=== PATIENT | female | born 1990 | race Caucasian/White ===

== ENCOUNTER → 2023-04-03 | Outpatient (CLI) | payer OTHER, SELFPAY ==
[2023-04-03 10:32] LABS: Absolute Lymphocyte Count 2.08 X10^3/uL (0.83-4.51); Absolute Neutrophil Count 4.6 X10^3/uL (2.0-7.7); Basophil# 0.03 X10^3/uL; Basophil% 0.4 % (0-1); Eosinophils% 1.4 % (0-5); Hematocrit 45.5 % (37-47); Hemoglobin 14.4 g/dL (12.0-15.0); Lymphocyte # 2.08 X10^3/ul (0.83-4.51); Lymphocyte % 28.3 % (19-41); Mean Corp Hgb Conc 31.6 g/dL (32-36); Mean Corpuscular Hgb 28.7 pg (27.0-32.0); Mean Corpuscular Volume 90.8 fL (81-99); Monocyte# 0.52 X10^3/uL; Monocyte% 7.1 % (0-10); NRBC Flagged by Analyzer 0 % (0-5); Neutrophil % 62.5 % (47-70); Platelet Count 281 K/mm3 (150-450); RBC Distribution Width CV 13.1 % (11.6-14.6); RBC Distribution Width SD 43.7 fl (35.1-43.9); Red Blood Count 5.01 M/mm3 (4.2-5.4); White Blood Count 7.4 K/mm3 (4.4-11.0)
[2023-04-03 10:58] LABS: ALB/GLOB Ratio 1.1 RATIO (0.9-2.4); AST(SGOT) 20 U/L (15-37); Alanine Aminotransfer ALT/SGPT 22 U/L (13-56); Albumin, Serum 3.9 g/dL (3.2-5.0); Alkaline Phosphatase 71 U/L (45-117); Anion Gap 6 (5-15); BUN 12 mg/dL (7-18); BUN/Creat Ratio 17.3 RATIO (10-20); Calcium,Total 8.8 mg/dL (8.5-10.1); Chloride 110 mmol/L (98-107); Cholesterol 197 mg/dL (200); Creatinine, Serum 0.69 mg/dL (0.55-1.02); EST Glomerular Filtration Rate 104 mL/min (>60); Est Glom Filt Rate - Afr Amer 126 mL/min (>60); Globulin 3.4 g/dL (2.2-4.2); Glucose 92 mg/dL (74-106); High Density Lipoprotein 64 mg/dL; Potassium 3.7 mmol/L (3.5-5.1); Protein, Total 7.3 g/dL (6.4-8.2); Sodium Level 141 mmol/L (136-145); Triglycerides 63 mg/dL; Very Low Density Lipoprotein 13 mg/dL (5-40)
== END | disposition home or self-care (01) ==
LOC: MTLAB 07:34
PROVIDERS: PCP Family Medicine; Referring Provider Physician Assistant Medical; Visit Provider Physician Assistant Medical
DX: L70.0 Acne vulgaris (principal); Z79.899 Other long term (current) drug therapy
CPT/HCPCS: 36415; 80053; 80061; 85025

== ENCOUNTER 2024-01-03 23:14 | Observation (INO) | payer OTHER, SELFPAY ==
[2024-01-03 23:16] VITALS: BP 153/104; PULSE 131; RESP 17; TEMP 36.2; O2SAT 99; BMI 28.3
[2024-01-03 23:25] VITALS: BP 134/85; PULSE 98; RESP 12; TEMP 36.7; O2SAT 100
[2024-01-03 23:46] LABS: Bacteria 0 SEEN /hpf (None Seen); Mucous, Urine 0 SEEN /hpf (<or=2+); Red Blood Cells-Urine 0 SEEN /hpf (0-5); Squamous Epithelial Cells - UA 0 SEEN /hpf (5-10); White Blood Cells 0 SEEN /hpf (0-5)
[2024-01-03 23:51] LABS: Color, Urine Yellow (Yellow); Glucose, Dipstick Normal (Normal); Ketone-Dipstick Negative (Negative); Leukocyte Esterase-Dipstick Negative /ul (Negative); Nitrite-Dipstick Negative (Negative); Occult Blood-Urine Negative /ul (Negative); Protein-Dipstick Negative (Negative); Urine Bilirubin Dipstick Negative (Negative); Urine Clarity Clear (Clear); Urine Urobilinogen Normal (Normal)
--- OUTSIDE RECORDS SUMMARY | 2024-01-03 23:53 | XMS RPT_ITS | CCD ---
Author Name Unknown Address [address] [place] [address] Organization [facility] Care Team Providers Care Cook Chili Name Role Phone Elisha Ballard Primary Care Provider [phone] ELISHA BALLARD Primary Care Unavailable ABDIRIZAK HAN Attending Elisha Bennett Primary Care Provider Carla Carter Primary Care Provider [phone] Elisha Ballard Unavailable JANE SEGOVIA Attending UnavailCARLA Wang Primary Care Unavailable Salma Guthrie Primary Care Provider No, Physician Primary Care Provider UnavailElisha Christie CNP Primary Care Provider [phone] KATYA EDWARDS Admitting WILLIE García Attending Unavailable ELISHA BALLARD Primary Care Unavailable KATYA EDWARDS Attending Joyce garcia [facility] onsulting Unavailable WILLIE NASH Admitting Unavailable ELISHA BALLARD Primary Care Unavailable KATYA EDWARDS Attending KATYA Pendleton Referring SALMA Jacobs Primary Care Unavailable ELIU DIAZ Admitting Unavailable LAMIN FREEDMAN Attending Unavailable LAMIN FREEDMAN Primary Care Unavailable Edu Olivares MD Unavailable [phone] Lamin Freedman MD Primary Care Provider LAMIN FREEDMAN Primary Care Unavailable JUAN DANIEL BURROWS Primary Care Unavailable MARGARET JOHN Admitting Unavail JUAN DANIEL Davidson Primary Care Unavailable MARGARET JOHN Attending Unavail able Allergies Allergy Classification Reported Allergen(s) Allergy Type Date of Onset Reaction(s) Facility (15 sources) Penicillins; Translations: [Unknown] Propensity to adverse reactions to drug 08-30-2016 [facility] (3 sources) Penicillins Propensity to adverse reactions to drug 08-30-2016 [facility] Medications Current Medications Medication Drug Class(es) Dates Sig (Normalized) Sig (Original) acetaminophen 325 mg oral tablet (3 sources) Start: 08-15-2021 End: 08-25-2021 take 2 tablets by mouth every four hours as needed acetaminophen (TYLENOL) 325 MG tablet Take 2 (two) tablets (650 mg total) by mouth every 4 (four) hours as needed . 30 tablet 0 08/15/2021 08/25/2021 Active Completed/Discontinued Medications Medication Drug Class(es) Dates Sig (Normalized) Sig (Original) aluminum hydroxide 40 mg/ml / magnesium hydroxide 40 mg/ml / simethicone 4 mg/ml oral suspension (1 source) Start: 08-13-2021 End: 08-15-2021 take 30 mL by mouth every four hours as needed 30 mL, Oral, Every 4 hours PRN, indigestion, Starting on 08/13/21 at 0432, azithromycin (ZITHROMAX) 500 mg in sodium chloride (NS) 0.9% 250 mL (vialmate) (1 source) Start: 08-13-2021 End: 08-13-2021 azithromycin (ZITHROMAX) 500 mg in sodium chloride (NS) 0.9% 250 mL (vialmate) bisacodyl 10 mg rectal suppository (1 source) Stimulant Laxative Start: 08-13-2021 End: 08-15-2021 10 mg, Rectal, Daily PRN, constipation, Starting on 08/13/21 at 0432, Use oral medication first for constipation.&nbsp ; Use rectal suppository, if ordered, for constipation if oral route not tolerated. calcium chloride 0.0014 meq/ml / potassium chloride 0.004 meq/ml / sodium chloride 0.103 meq/ml / sodium lactate 0.028 meq/ml injectable solution (3 sources) Start: 08-13-2021 End: 08-15-2021 take 125 mL intravenously every hour 125 mL/hr, Intravenous, Continuous, Starting on 08/13/21 at 0530, L&D Post-Delivery Start when oxyTOCIN (PITOCIN) drip is discontinued. Discontinue after 24 hours if patient is afebrile and tolerating orals. Problems Active Problems Problem Classification Problem Date Documented Da te Episodic/Chronic Gastrointestinal hemorrhage (4 sources) Rectal hemorrhage; Translations: [Hemorrhage of anus and rectum] Onset: 04-22-2022 Episodic Immunizations and screening for infectious disease (1 source) Contact with and (suspected) exposure to other viral communicable diseases; Translations: [Contact with and (suspected) exposure to other viral communicable diseases] Episodic Other gastrointestinal disorders (14 sources) Irritable bowel syndrome with diarrhea; Translations: [Irritable bowel syndrome with diarrhea] Onset: 07-07-2019 07-07-2019 Chronic Other nervous system disorders (1 source) Loss of sense of smell; 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] Episodic Other screening for suspected conditions (not mental disorders or infectious disease) (2 sources) Patient encounter status; Translations: [Encounter for screening for cardiovascular disorders] Episodic Residual codes; unclassified (1 source) Immunization due; Translations: [Immunization due] Unclassified (14 sources) Patient encounter status; Translations: [Preventative health care] Onset: 12-23-2018 Resolved: 01-16-2021 12-23-2018 Past or Other Problems Problem Classification Problem Date Documented Da te Episodic/Chronic Open wounds of extremities (1 source) Needle stick injury of finger; Translations: [Needlestick injury of finger, initial encounter] Episodic Other gastrointestinal disorders (15 sources) Diarrhea; Translations: [Diarrhea, unspecified] Onset: 12-23-2018 Resolved: 01-16-2021 12-23-2018 Episodic Polyhydramnios and other problems of amniotic cavity (4 sources) Amniotic fluid leaking; Translations: [Premature rupture of membranes, unspecified as to length of time between rupture and onset of labor, unspecified weeks of gestation] Onset: 08-12-2021 Episodic Results Test Name Value Interpretation Reference Range Facil ity Vital Signs Date Time Vital Sign Value Performing Clinician Nadeen bethea 04-18-2022 08:45-0400 Body height 160 cm Lamin Freedman MD Work Phone: [facility] 04-18-2022 08:45-0400 Body mass index (BMI) [Ratio] 26.57 kg/m2 Lamin Freedman MD Work Phone: [facility] 04-18-2022 08:45-0400 Body temperature 98.4 [degF] Lamin Freedman MD Work Phone: [facility] 04-18-2022 08:45-0400 Body weight 68.04 kg Lamin Freedman MD Work Phone: [facility] 04-18-2022 08:45-0400 Diastolic blood pressure 85 mm[Hg] Lamin Freedman MD Work Phone: [facility] 04-18-2022 08:45-0400 Heart rate 83 /min Lamin Freedman MD Work Phone: [facility] 04-18-2022 08:45-0400 SaO2% (BldA) [Mass fraction] 98 % Lamin Freedman MD Work Phone: [facility] 04-18-2022 08:45-0400 Systolic blood pressure 130 mm[Hg] Lamin Freedman MD Work Phone: [facility] 08-15-2021 08:00-0400 Body temperature 98.1 [degF] Katya Edwards MD Work Phone: [facility] 08-15-2021 08:00-0400 Diastolic blood pressure 85 mm[Hg] Katya Edwards MD Work Phone: [facility] 08-15-2021 08:00-0400 Heart rate 101 /min Katya Edwards MD Work Phone: [facility] 08-15-2021 08:00-0400 Respiratory rate 16 /min Katya Edwards MD Work Phone: [facility] 08-15-2021 08:00-0400 SaO2% (BldA) [Mass fraction] 97 % Katya Edwards MD Work Phone: [facility] 08-15-2021 08:00-0400 Systolic blood pressure 135 mm[Hg] Katya Yost Work Phone: [facility] 08-12-2021 08:04-0400 Body height 160 cm Katya Edwards MD Work Phone: [facility] 08-12-2021 08:04-0400 Body mass index (BMI) [Ratio] 33.13 kg/m2 Katya Edwards MD Work Phone: [facility] 08-12-2021 08:04-0400 Body weight 84.82 kg Katya Edwards MD Work Phone: [facility] 01-16-2021 08:14-0500 BMI (Body Mass Index) 28.34 kg/m2 [facility] 08:14-0500 Body Temperature 97 [degF] [facility] 01-16-2021 08:14-0500 Body weight 72.58 kg [facility] 01-16-2021 08:14-0500 BP Diastolic 79 mm[Hg] [facility] 01-16-2021 08:14-0500 BP Systolic 124 mm[Hg] [facility] 01-16-2021 08:14-0500 Height 160 cm [facility] 01-16-2021 08:14-0500 Pulse (Heart Rate) 90 /min [facility] 01-16-2021 08:14-0500 Pulse Oximetry 99 % [facility] 10-24-2020 17:48-0500 BMI (Body Mass Index) 25.69 kg/m2 [facility] 17:48-0500 Body Temperature 98.1 [degF] [facility] 17:48-0500 [facility] 17:48-0500 Height 160 [facility] 17:48-0500 Pulse (Heart Rate) 92 /min Jane Segovia [facility] 10-24-2020 17:48-0500 Pulse Oximetry 99 % Jane Segovia [facility] 11-24-2019 11:17-0500 BMI (Body Mass Index) 29.14 kg/m2 [facility] 11-24-2019 11:17-0500 Body weight 72.26 kg [facility] 11-24-2019 11:17-0500 BP Diastolic 83 mm[Hg] [facility] 11-24-2019 11:17-0500 BP Systolic 130 mm[Hg] [facility] 11-24-2019 11:17-0500 Pulse (Heart Rate) 87 /min [facility] 07-11-2019 18:21-0400 Body Temperature 98.4 [degF] [facility] 07-11-2019 18:21-0400 BP Diastolic 90 mm[Hg] [facility] 07-11-2019 18:21-0400 BP Systolic 131 mm[Hg] [facility] 07-11-2019 18:21-0400 Pulse (Heart Rate) 79 /min [facility] 07-11-2019 18:21-0400 Pulse Oximetry 97 % [facility] 07-11-2019 18:21-0400 Respiratory Rate 16 /min [facility] 07-07-2019 09:15-0400 BMI (Body Mass Index) 28.28 kg/m2 [facility] 07-07-2019 09:15-0400 Body weight 70.13 kg [facility] 07-07-2019 09:15-0400 BP Diastolic 85 mm[Hg] [facility] 07-07-2019 09:15-0400 BP Systolic 128 mm[Hg] [facility] 07-07-2019 09:15-0400 Pulse (Heart Rate) 83 /min [facility] 12-23-2018 13:16-0500 BMI (Body Mass Index) 28.29 kg/m2 Elisha Ballard [facility] 12-23-2018 13:16-0500 Body Temperature 97.59 [degF] Elisha Ballard [facility] 12-23-2018 13:16-0500 BP Diastolic 89 mm[Hg] Elisha Ballard [facility] 12-23-2018 13:16-0500 BP Systolic 134 mm[Hg] Elisha Ballard [facility] 12-23-2018 13:16-0500 Height 157.5 cm Elisha Ballard [facility] 12-23-2018 13:16-0500 Pulse (Heart Rate) 95 /min Elisha Ballard [facility] 12-23-2018 13:16-0500 Pulse Oximetry 99 % Elishabalbir Ballard [facility] 12-23-2018 13:16-0500 Weight 70.15 kg Elisha Elio [facility] Encounters Encounter Date Encounter Type Care Provider Facility Start: 07-25-2022 End: 07-25-2022 [facility] Start: 07-25-2022 End: 07-29-2022 [facility] Start: 04-22-2022 Patient encounter status Lamin Freedman MD Work Phone: [facility] Work Phone: Start: 04-18-2022 End: 04-22-2022 ambulatory LAMIN J [facility] Start: 04-18-2022 End: 04-22-2022 ambulatory LAMIN J VENKATMateo [facility] Start: 04-18-2022 End: 04-18-2022 Patient encounter status Lamin Freedman MD Work Phone: [facility] Start: 04-18-2022 End: 04-18-2022 Periodic preventive med est patient 18-39 yrs Lamin Freedman MD Work Phone: [facility] Procedures Date Procedure Procedure Detail Performing Clinician Start: 04-18-2022 Adult depression screening assessment Lamin Freedman MD Work Phone: Start: 08-14-2021 Blood count complete automated Willie Nash MD Work Phone: Start: 08-12-2021 Blood typing serologic abo Willie Nash MD Work Phone: Start: 08-12-2021 Comprehensive metabolic panel Antionette Meza CNM Work Phone: Start: 10-24-2020 COVID-19, MOLECULAR Jane Fernández Jose Work Phone: Start: 05-01-2019 Microscopic observation [Identifier] in Cervix by Cyto stain Carla Mercer Start: 03-13-2016 Microscopic observation [Identifier] in Cervix by Cyto stain Elisha Ballard section Willie figueroa MD Work Phone: H/O: section H/O: secti on Katya Tyson Edwards MD Work Phone: Plan of Treatment Date Care Activity Detail Author Start: 12-23-2028 Tetanus vaccination [facility] Start: 04-18-2023 Depression screening using PHQ-9 (Patient Health Questionnaire 9) score Depression Screening (PHQ-2/9) [facility] Start: 04-18-2023 History and physical examination, annual for health maintenance Wellness Visit [facility] Start: 05-01-2022 Screening for malignant neoplasm of cervix PAP SMEAR [facility] Start: 01-16-2022 History and physical examination, annual for health maintenance Wellness Visit [facility] Start: 01-17-2021 End: 01-17-2021 Office Visit 01/17/2021 Office Visit Primary Care Elisha Ballard, [employer] [address] [place] [address] [phone] [facility] Start: 12-15-2020 End: 12-15-2020 Immunization 12/15/2020 Immunization Primary Care Margaret John MD [address] [place] [address] [phone] [facility] [facility] Start: 12-14-2020 COVID-19 Vaccine (2 of 2 - Moderna series) COVID-19 Vaccine (2 of 2 - Moderna series) [facility] Start: 12-14-2020 COVID-19 Vaccine (Moderna) (#2) COVID-19 Vaccine (Moderna) (#2) [facility] Start: 12-23-2019 History and physical examination, annual for health maintenance Wellness Visit [facility] Start: 10-06-2019 End: 10-06-2019 Office Visit 10/06/2019 Office Visit Gastroenterology Ruslan Carlasaundra Escobedo DO [address] [place] [address] [phone] [facility] Start: 07-19-2019 Influenza vaccination given SEQUENTIAL INFLUENZA VACCINE (#1) [facility] Start: 03-13-2019 Screening for malignant neoplasm of cervix PAP SMEAR [facility] Start: 07-19-2018 Influenza vaccination given SEQUENTIAL INFLUENZA VACCINE (#1) [facility] Start: 2003 Adolescent depression screening assessment Depression Screening (PHQ9) [facility] Start: 1991 Depression screening using PHQ-9 (Patient Health Questionnaire 9) score DEPRESSION SCREENING (PHQ9) [facility] Covid-19/Influenza Order Algorithm Covid-19/Influenza Order Algorithm Microbiology Routine Anosmia Contact With And (Suspected) Exposure To Other Viral Communicable Diseases Ordered: 10/24/2020 [facility] Immunizations Immunization Date Immunization Notes Care Provider Fa cility 09-18-2021 influenza virus vacc ine, unspecified formulation Lamin Freedman MD Work Phone: [facility] 09-18-2021 influenza, injectabl e, quadrivalent, preservative free Lamin Freedman MD Work Phone: [facility] 08-13-2021 varicella zoster imm une globulin Katya Edwards MD Work Phone: [facility] 08-13-2021 measles, mumps and r ubella virus vaccine Katya Edwards MD Work Phone: [facility] 08-13-2021 diphtheria, tetanus toxoids and acellular pertussis vaccine, unspecified formulation Katya Edwards MD Work Phone: [facility] 02-22-2021 Moderna SARS-CoV-2 Vaccination Rico Oes Pcp Amadou [facility] 11-16-2020 Moderna SARS-CoV-2 Vaccination Rosa Baig [facility] 09-20-2020 influenza virus vacc ine, unspecified formulation Salma Oberschmidt [facility] 12-22-2019 hepatitis A vaccine, adult dosage Masarah Bernardo [facility] 12-22-2019 hepatitis A [facility], [facility] 08-21-2019 influenza virus vacc ine, unspecified formulation [facility] 12-23-2018 diphtheria, tetanus toxoids and acellular pertussis vaccine, unspecified formulation Elisha [facility] 12-23-2018 tetanus toxoid, redu ramos diphtheria toxoid, and acellular pertussis vaccine, adsorbed [facility] 07-03-2016 tuberculin skin test ; purified protein derivative solution, intradermal [facility] 09-17-2015 hepatitis B vaccine, adult dosage [facility] 07-14-2015 hepatitis B vaccine, adult dosage [facility] 11-26-2014 hepatitis B vaccine, adult dosage [facility] 09-01-2014 influenza, injectabl e, quadrivalent, preservative free [facility] 03-07-2012 hepatitis A vaccine, adult dosage [facility] 03-07-2012 poliovirus vaccine, inactivated [facility] 03-07-2012 typhoid capsular polysaccharide vaccine [facility] 03-07-2012 yellow fever vaccine [facility] 02-07-2010 hepatitis B vaccine, pediatric or pediatric/adolescent dosage [facility] 10-26-2009 hepatitis B vaccine, pediatric or pediatric/adolescent dosage [facility] 07-19-2009 hepatitis B vaccine, pediatric or pediatric/adolescent dosage [facility] 07-19-2009 meningococcal polysaccharide (groups A, C, Y and W-135) diphtheria toxoid conjugate vaccine (MCV4P) [facility] 07-19-2009 tetanus toxoid, redu ramos diphtheria toxoid, and acellular pertussis vaccine, adsorbed [facility] 02-23-1998 measles, mumps and r ubella virus vaccine [facility] 09-04-1995 diphtheria, tetanus toxoids and pertussis vaccine [facility] 09-04-1995 poliovirus vaccine, unspecified formulation [facility] 08-12-1992 diphtheria, tetanus toxoids and pertussis vaccine [facility] 04-25-1992 haemophilus influenz ae type b vaccine, conjugate unspecified formulation [facility] 04-25-1992 measles, mumps and r ubella virus vaccine [facility] 1991 diphtheria, tetanus toxoids and pertussis vaccine [facility] 1991 haemophilus influenz ae type b vaccine, conjugate unspecified formulation [facility] 1991 poliovirus vaccine, unspecified formulation [facility] 1991 diphtheria, tetanus toxoids and pertussis vaccine [facility] 1991 haemophilus influenz ae type b vaccine, conjugate unspecified formulation [facility] 1991 poliovirus vaccine, unspecified formulation [facility] 1991 diphtheria, tetanus toxoids and pertussis vaccine [facility] 1991 haemophilus influenz ae type b vaccine, conjugate unspecified formulation [facility] 1991 poliovirus vaccine, unspecified formulation [facility] Payers Date Payer Category Payer Worker's Compensation [id number] 2017 Unknown [employer]/PREF/O/PPO xxxxxxxxxxxx 2017-Present xxxxxxxxxxxx [id number] 2017 Unknown [id number] 2017 Unknown [id number] 2017 Unknown [employer]MINA BERMAN/PREF/HMO/PPO [id number] 2017-Present [phone] [address] [place] [address] [id number] 1991 Unknown [id number] 1991 Unknown [id number] 1991 Unknown [id number] 1991 Unknown [id number] 902 1991 Unknown [id number] 902 1991 Unknown [id number] 903 1991 Unknown [id number] 900 1991 Unknown [id number] Worker's Compensation WORKER'S C [employer] PENDING WORKERS COMPENSATION xxxxxxxxx Effective for all dates xxxxxxxxx [id number] Social History Date Type Detail Facility Start: 12-23-2018 End: 07-07-2019 Tobacco smoking status WYIS Never smoker [facility] Start: 1991 Sex Assigned At Not on file [facility] Start: 07-11-2019 End: 01-16-2021 Alcohol intake Current drinker of alcohol (finding) [facility] Start: 07-07-2019 End: 10-24-2020 Tobacco use and exposure Never used [facility] Exposure to SARS-CoV -2 (event) Yes [facility] Start: 01-16-2021 End: 04-18-2022 [facility] Start: 01-16-2021 End: 04-18-2022 History SDOH Food Worry 1 [facility] Start: 01-16-2021 End: 04-18-2022 History SDOH Transport Med 2 [facility] Start: 04-02-2022 End: 04-12-2022 Exposure to SARS-CoV-2 (event) Not sure [facility] Start: 08-14-2021 End: 04-22-2022 Alcohol intake Ex-drinker (finding) [facility] Start: 08-14-2021 End: 04-22-2022 Alcohol intake [facility] Clinical Notes 08-13-2021 to 04-22-2022 Assessment & Plan Note - Lamin Freedman MD - 04/22/2022 2:04 PM EDTAssessment & Plan Note - Lamin Freedman MD - 04/22/2022 2:04 PM EDTRedarrell Barton MD - 04/18/2022 9:25 AM EDT Note Date & Type Note Facility 04-22-2022 Evaluation + Plan note Associ ated Problem(s): Encounter for well adult exam with abnormal findings Labs as ordered No current anxiety or depression (PHQ9: 0) No substance abuse concerns. Pap Smear: UTD, due May 2022 with OBGYN STI: mcc monogamous relationship with 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 Vaccines: UTD Continued work on healthy diet and consistent aerobic exercise (minimum 150 minutes weekly) were suggested and discussed - already doing well. [facility] 04-22-2022 Miscellaneous Notes Associate d Problem(s): Encounter for well adult exam with abnormal findings Labs as ordered No current anxiety or depression (PHQ9: 0) No substance abuse concerns. 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 Vaccines: UTD Continued work on healthy diet and consistent aerobic exercise (minimum 150 minutes weekly) were suggested and discussed - already doing well. Associated Problem(s): Rectal bleeding Intermittent, every couple weeks Likely hemorrhoids in setting of recent and IBS-D Offered exam, pt respectfully declined Discussed limiting time spent on toilet, avoidance of straining, topical OTC options She would like new referral to GI as hers has left - placed order in separate encounter documented in this encounter [facility] 04-22-2022 Miscellaneous Notes Associate d Problem(s): Encounter for well adult exam with abnormal findings Labs as ordered No current anxiety or depression (PHQ9: 0) No substance abuse concerns. 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 Vaccines: UTD Continued work on healthy diet and consistent aerobic exercise (minimum 150 minutes weekly) were suggested and discussed - already doing well. Associated Problem(s): Rectal bleeding Intermittent, every couple weeks Likely hemorrhoids in setting of recent and IBS-D Offered exam, pt respectfully declined Discussed limiting time spent on toilet, avoidance of straining, topical OTC options She would like new referral to GI as hers has left - placed order in separate encounter documented in this encounter [facility] 04-22-2022 Evaluation + Plan note Associ ated Problem(s): Rectal bleeding Intermittent, every couple weeks Likely hemorrhoids in setting of recent and IBS-D Offered exam, pt respectfully declined Discussed limiting time spent on toilet, avoidance of straining, topical OTC options She would like new referral to GI as hers has left - placed order in separate encounter [facility] 04-18-2022 History of Presen t illness Narrative (GE) I have reviewed the history, physical, diagnosis and care plan with the resident physician, Lamin Freedman MD. I confirm the assessment and treatment plan: Diagnoses and all orders for this visit: Encounter for well adult exam without abnormal findings- Encouraged continued dietary changes and exercise Rectal bleeding- Likely external hemorrhoids. - CBC and Differential; Future HM - Comprehensive Metabolic Panel; Future - Lipid Panel; Future Edith Barton MD Jay Torres is a 32 y.o. year old female with a hx of IBS-D who presents for full history and physical. ASSESSMENT / PLAN: Problem List Items Addressed This Visit Digestive Rectal bleeding Intermittent, every couple weeks Likely hemorrhoids in setting of recent and IBS-D Offered exam, pt respectfully declined Discussed limiting time spent on toilet, avoidance of straining, topical OTC options She would like new referral to GI as hers has left - placed order in separate encounter Other Encounter for well adult exam with abnormal findings - Primary Labs as ordered No current anxiety or depression (PHQ9: 0) No substance abuse concerns. 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 Vaccines: UTD Continued work on healthy diet and consistent aerobic exercise (minimum 150 minutes weekly) were suggested and discussed - already doing well. Relevant Orders CBC and Differential (Completed) Comprehensive Metabolic Panel (Completed) Lipid Panel (Completed) The patient will call with questions, concerns and for changing symptoms. For any new medications prescribed today, patient was educated about indications for the medication, how to take the medication and potential side effects of the medications. Patient Name: Jay Torres Date: 04/22/22 Patient : 1990 Patient Age: 32 y.o. CC: Chief Complaint Patient presents with Annual Exam Had daughter 8 months ago had rectal bleeding right after and went away but is now back on occasion SUBJECTIVE C section 8 mo ago, healed well. Breast feeding, on . IBS well controlled with diet Rectal bleeding - after . Hx hemorrhoids during - thinks they resolved. Has not seen her GI dr for this concern, only saw them for her IBS. Rectal pain immediately after delivery but not since. Some streaks of blood on TP every couple weeks. Diet Typical Foods: eggs, avocado toast, seafood, chicken, veg, some red meats, dessert couple times a week. Drinks: water, no pop Caffeine: 1-2 cups of coffee per day Substances Alcohol: no Tobacco products: no Marijuana: no Other: no Exercise Activities: walks daily, yoga at home, sometimes bikes OB Regular periods: not since delivery - has IUD LMP: prior to G/Ps: Sexually Active: yes What are the genders of people you have sex with: male Number partners in past year: 1, STI Screening: defers Plans for : not soon, but someday Contraception: Mirena IUD placed Sep 2021 Last pap was about 5 yrs ago May and was normal - due with OBGYN this May DV: safe Vaccinations: Tdap: UTD COVID-19: UTD Health maintenance: Blood pressure: wnl HLD screening: will check today Has an eye doctor: has seen before Has a dentist: yes Today's PHQ9 PHQ-9 Total Score: 0 If you checked off any problems, how difficult have these problems made it for you to do your work, take care of things at home, or get along with other people?: Not difficult at all Review of Systems Constitutional: Negative for fever. HENT: Negative for congestion and rhinorrhea. Respiratory: Negative for shortness of breath. Cardiovascular: Negative for chest pain. Gastrointestinal: Positive for anal bleeding. Negative for abdominal pain and rectal pain. Endocrine: Negative for cold intolerance and heat intolerance. Psychiatric/Behavioral: Negative for dysphoric mood. History reviewed. No pertinent past medical history. Past Surgical History: Procedure Laterality Date SECTION N/A 08/12/2021 Procedure: SECTION; Surgeon: Willie Nash Jr., MD; Location: [facility] OR; Service: OBGYN WISDOM TOOTH EXTRACTION Allergies: Penicillins Current Outpatient Medications Medication Sig Dispense Refill vitamin with Ca-Iron-FA 27-1 mg Tab Take 1 tablet by mouth daily . No current facility-administered medications for this visit. 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 Tobacco Use Smoking status: Never Smokeless tobacco: Never Vaping Use Vaping Use: Never used Substance and Sexual Activity Alcohol use: Not Currently Alcohol/week: 2.0 standard drinks Types: 2 Glasses of wine per week Drug use: Never Sexual activity: Yes Partners: Male Social Determinants of Health Financial Resource Strain: Low Risk Difficulty of Paying Living Expenses: Not hard at all Food Insecurity: No Food Insecurity Worried About Running Out of Food in the Last Year: Never true Ran Out of Food in the Last Year: Never true Transportation Needs: No Transportation Needs Lack of Transportation (Medical): No Lack of Transportation (Non-Medical): No Family History Problem Relation Age of Onset Non-Hodgkin's Lymphoma Father 56 No Known Problems Mother OBJECTIVE Vitals: 04/18/22 0845 BP: 130/85 BP Location: Left arm Patient Position: Sitting BP Cuff Size: Adult Pulse: 83 Temp: 98.4 F (36.9 C) TempSrc: Infrared SpO2: 98% Weight: 68 kg (150 lb) Height: 5' 3 Wt Readings from Last 3 Encounters: 04/18/22 68 kg (150 lb) 08/12/21 84.8 kg (187 lb) 08/11/21 84.4 kg (186 lb) Ht Readings from Last 3 Encounters: 04/18/22 5' 3 08/12/21 5' 3 08/11/21 5' 3 Body mass index is 26.57 kg/m . Physical Exam General: Alert, cooperative, well appearing, in no apparent distress. Head: Head is symmetric, normocephalic without evidence of trauma or deformity. Eyes: Pupils are equally round and reactive to light with accommodation. The extra-ocular movements are intact. The conjunctiva is clear and noninjected. ENT: The external auditory canals are without swelling or drainage.The nasal mucosa is pink without drainage. The tongue and mucous membranes are pink and moist without lesions. The dentition is generally in good health. The pharynx is non-erythematous without exudates. Neck: There is normal range of motion. The thyroid is normal size without nodules or masses. There is no lymphadenopathy. CV: The heart sounds are regular in rate and rhythm. There is a normal S1 and S2. Lungs: Inspiratory and expiratory efforts are full and unlabored. Lung sounds are clear and equal to auscultation throughout all lung marte without wheezing, rales, or rhonchi. GI: The abdomen is soft and nontender. Bowel sounds are present in all 4 quadrants. There is no hepatosplenomegaly or other masses. There is no rebound or guarding. Extremities: There is no clubbing, cyanosis, or edema. Neurological: Patient is alert. There are no obvious focal sensory or motor deficits. Cranial nerves appear intact. Hearing and vision is grossly normal. Skin: Warm, dry, no rashes or discoloration. documented in this encounter [facility] 04-18-2022 History of Presen t illness Narrative (GE) I have reviewed the history, physical, diagnosis and care plan with the resident physician, Lamin Freedman MD. I confirm the assessment and treatment plan: Diagnoses and all orders for this visit: Encounter for well adult exam without abnormal findings- Encouraged continued dietary changes and exercise Rectal bleeding- Likely external hemorrhoids. - CBC and Differential; Future HM - Comprehensive Metabolic Panel; Future - Lipid Panel; Future Edith Barton MD Jay Torres is a 32 y.o. year old female with a hx of IBS-D who presents for full history and physical. ASSESSMENT / PLAN: Problem List Items Addressed This Visit Digestive Rectal bleeding Intermittent, every couple weeks Likely hemorrhoids in setting of recent and IBS-D Offered exam, pt respectfully declined Discussed limiting time spent on toilet, avoidance of straining, topical OTC options She would like new referral to GI as hers has left - placed order in separate encounter Other Encounter for well adult exam with abnormal findings - Primary Labs as ordered No current anxiety or depression (PHQ9: 0) No substance abuse concerns. 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 Vaccines: UTD Continued work on healthy diet and consistent aerobic exercise (minimum 150 minutes weekly) were suggested and discussed - already doing well. Relevant Orders CBC and Differential (Completed) Comprehensive Metabolic Panel (Completed) Lipid Panel (Completed) The patient will call with questions, concerns and for changing symptoms. For any new medications prescribed today, patient was educated about indications for the medication, how to take the medication and potential side effects of the medications. Patient Name: Jay Torres Date: 04/22/22 Patient : 1990 Patient Age: 32 y.o. CC: Chief Complaint Patient presents with Annual Exam Had daughter 8 months ago had rectal bleeding right after and went away but is now back on occasion SUBJECTIVE C section 8 mo ago, healed well. Breast feeding, on . IBS well controlled with diet Rectal bleeding - after . Hx hemorrhoids during - thinks they resolved. Has not seen her GI dr for this concern, only saw them for her IBS. Rectal pain immediately after delivery but not since. Some streaks of blood on TP every couple weeks. Diet Typical Foods: eggs, avocado toast, seafood, chicken, veg, some red meats, dessert couple times a week. Drinks: water, no pop Caffeine: 1-2 cups of coffee per day Substances Alcohol: no Tobacco products: no Marijuana: no Other: no Exercise Activities: walks daily, yoga at home, sometimes bikes OB Regular periods: not since delivery - has IUD LMP: prior to G/Ps: Sexually Active: yes What are the genders of people you have sex with: male Number partners in past year: 1, STI Screening: defers Plans for : not soon, but someday Contraception: Mirena IUD placed Sep 2021 Last pap was about 5 yrs ago May and was normal - due with OBGYN this May DV: safe Vaccinations: Tdap: UTD COVID-19: UTD Health maintenance: Blood pressure: wnl HLD screening: will check today Has an eye doctor: has seen before Has a dentist: yes Today's PHQ9 PHQ-9 Total Score: 0 If you checked off any problems, how difficult have these problems made it for you to do your work, take care of things at home, or get along with other people?: Not difficult at all Review of Systems Constitutional: Negative for fever. HENT: Negative for congestion and rhinorrhea. Respiratory: Negative for shortness of breath. Cardiovascular: Negative for chest pain. Gastrointestinal: Positive for anal bleeding. Negative for abdominal pain and rectal pain. Endocrine: Negative for cold intolerance and heat intolerance. Psychiatric/Behavioral: Negative for dysphoric mood. History reviewed. No pertinent past medical history. Past Surgical History: Procedure Laterality Date SECTION N/A 08/12/2021 Procedure: SECTION; Surgeon: Willie Nash Jr., MD; Location: [facility] OR; Service: OBGYN WISDOM TOOTH EXTRACTION Allergies: Penicillins Current Outpatient Medications Medication Sig Dispense Refill vitamin with Ca-Iron-FA 27-1 mg Tab Take 1 tablet by mouth daily . No current facility-administered medications for this visit. 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 Tobacco Use Smoking status: Never Smokeless tobacco: Never Vaping Use Vaping Use: Never used Substance and Sexual Activity Alcohol use: Not Currently Alcohol/week: 2.0 standard drinks Types: 2 Glasses of wine per week Drug use: Never Sexual activity: Yes Partners: Male Social Determinants of Health Financial Resource Strain: Low Risk Difficulty of Paying Living Expenses: Not hard at all Food Insecurity: No Food Insecurity Worried About Running Out of Food in the Last Year: Never true Ran Out of Food in the Last Year: Never true Transportation Needs: No Transportation Needs Lack of Transportation (Medical): No Lack of Transportation (Non-Medical): No Family History Problem Relation Age of Onset Non-Hodgkin's Lymphoma Father 56 No Known Problems Mother OBJECTIVE Vitals: 04/18/22 0845 BP: 130/85 BP Location: Left arm Patient Position: Sitting BP Cuff Size: Adult Pulse: 83 Temp: 98.4 F (36.9 C) TempSrc: Infrared SpO2: 98% Weight: 68 kg (150 lb) Height: 5' 3 Wt Readings from Last 3 Encounters: 04/18/22 68 kg (150 lb) 08/12/21 84.8 kg (187 lb) 08/11/21 84.4 kg (186 lb) Ht Readings from Last 3 Encounters: 04/18/22 5' 3 08/12/21 5' 3 08/11/21 5' 3 Body mass index is 26.57 kg/m . Physical Exam General: Alert, cooperative, well appearing, in no apparent distress. Head: Head is symmetric, normocephalic without evidence of trauma or deformity. Eyes: Pupils are equally round and reactive to light with accommodation. The extra-ocular movements are intact. The conjunctiva is clear and noninjected. ENT: The external auditory canals are without swelling or drainage.The nasal mucosa is pink without drainage. The tongue and mucous membranes are pink and moist without lesions. The dentition is generally in good health. The pharynx is non-erythematous without exudates. Neck: There is normal range of motion. The thyroid is normal size without nodules or masses. There is no lymphadenopathy. CV: The heart sounds are regular in rate and rhythm. There is a normal S1 and S2. Lungs: Inspiratory and expiratory efforts are full and unlabored. Lung sounds are clear and equal to auscultation throughout all lung marte without wheezing, rales, or rhonchi. GI: The abdomen is soft and nontender. Bowel sounds are present in all 4 quadrants. There is no hepatosplenomegaly or other masses. There is no rebound or guarding. Extremities: There is no clubbing, cyanosis, or edema. Neurological: Patient is alert. There are no obvious focal sensory or motor deficits. Cranial nerves appear intact. Hearing and vision is grossly normal. Skin: Warm, dry, no rashes or discoloration. documented in this encounter [facility] 08-15-2021 Miscellaneous Notes A guide to Caring for Yourself and Your Baby was given to and reviewed with patient. Post- Warning Signs literature was given to and reviewed with patient. Post- Pre-eclampsia literature was given to and reviewed with patient. Patient encouraged to reference book when she gets home. This note was copied from a baby's chart. Discharge Mom denies having any questions/concerns related to at this time. Reports she feels heavier, levi breasts today; reports breasts are still soft, milk is still moving. Reviewed engorgement prevention and outpatient services. Encouraged use of helpline and/or in person consultation as needed. Mom reports she feels some tenderness with initial latch but does not experience any discomfort following the first few seconds of the feeding. No feeding observed this time; mom reports recent feeding; no hunger cues noted at this time. Family is planning to discharge home today. Will follow up as needed until then. RN updated. Plan of care reviewed with patient. Medication schedule written on whiteboard. Denies questions/needs at this time. Call light in hand. This note was copied from a baby's chart. consult update: Mother states well; she plans to give the rest of her pumped colostrum with the next feeding or with cluster feeding this evening. currently skin to skin with mother; she states continues to feed well and her nipples are comfortable. Reviewed increased milk supply, signs/symptoms/treatment of engorgement, signs/symptoms/treatment of mastitis, pumping/storage with return to work. Mother has two pumps including a hands free pump to use at work. Encouraged to continue asking for assistance and did encourage outpatient support/appointment as needed. Ongoing support offered per PARVIZ. Anesthesia Post-op Follow-up Note 2 Days Post-Op Procedure(s): SECTION Epidural/Nerve Block Catheter 08/12/21 (Active) Reassessment Unchd X 08/13/21 0043 Epidural Sign Above Bed Yes 08/13/21 0043 Site Assessment Clean; Dry 08/13/21 0043 Number of days: 2 Patient participation: patient participated Mental status: awake Pain management: adequate Anesthetic complications: no Nausea / vomiting: no Respiratory / airway status: airway patent, room air and spontaneous ventilation Postoperative hydration: acceptable Comment: Patient has satisfactorily recovered from her anesthetic. Pt ambulating without difficulty. Pt denies headache. Temp: [36.7 C-36.8 C] 36.7 C Heart Rate: [68-91] 91 Resp: [16-18] 16 BP: (99-124)/(60-80) 124/80 Removed old steri strips and replaced them with new ones. Pt tolerated very well. This note was copied from a baby's chart. talent development consultant (LC) called to patient room to assist with . Infant is latched to the right breast when LC enters and infant displays a productive suck rhythm with frequent swallows (see flowsheet). Mother pumped x1 earlier this morning and collected 25ML of colostrum. Mother cup fed 10ML at the previous feeding. Infant took 6ML this feeding by cup and syringe feeding. Reviewed feeding plan with mother: breastfeed every 3-hours, if poor feeding, follow with pumping and offer expressed colostrum. Mother verbalized understanding and denied further needs. will continue to monitor. This note was copied from a baby's chart. update: Mother just beginning to latch onto R breast after attempt a short time ago. is alert and showing feeding cues. Assisted mother to latch in football hold; assisted her to shape breast for deeper latch. fed x 20 minutes with suck/swallow pattern. Mother burped her and she began showing feeding cues again. Brought her first in football and then to cross cradle which was easier for mother, who has carpal tunnel syndrome. latched on the L breast with moderately deep latch, active suck/swallow that began to slow down after 10 minutes. She was still latched with LC exit. Reinforced feeds at least every 3 hours, reviewed breast shaping/compression, continued hand expression. Ongoing support offered per LC. This note was copied from a baby's chart. update: Mother states infant has been sleepy all day. She did wake a short time ago; latched and sucked a couple of times but would not stay awake. Used rousing techniques now to attempt to wake her, but she is very spitty/gaggy and will not wake entirely or show feeding cues. Mother hand expressed a few drops and LC gave with a gloved finger. Mother now putting infant skin to skin at 1830; will try more hand expression and giving infant whatever she collects. Bedside RN Lamin Baeza notified; she will check a blood sugar to make sure infant is stable at this time. Ongoing support offered per LC as needed; did suggest pumping if no feeds this evening. This note was copied from a baby's chart. Met with mother for initial consult. Mom says baby breast fed well after delivery early this morning, but she has not fed since. Mom states baby has been sleeping and disinterested. Reviewed normal feeding behaviors in the first 12-24 hours of life. Encouraged lots of skin to skin and on cue/at least every 3 hours. Instructed on waking techniques. Diaper changed for meconium. Assist with position and latching techniques at the left breast in clutch hold. Large drops of colostrum are easily expressed to entice latch. Baby remains sleepy and makes no attempts to latch. Assisted to hand express 4.8 ml's and syringe fed to baby. Mom will continue to offer the breast every 3 hours. If no feeding she will hand express and feed anything that she collects to baby. Primary RN updated. will continue to monitor. Central [facility] Utilization Review Notes L and D Template Admit Date: 08/12/21 Delivery Type: CS-LTranv Gender: female weight: 3.212 kg Gestational age:41w0d Delivery date/time: 46 Apgars: 8/9 Discharge Date: TBD JAY TORRES [id number] 1990 DATE OPERATIVE REPORT SURGEON WILLIE NASH JR, MD PREOPERATIVE DIAGNOSIS Failure to progress. POSTOPERATIVE DIAGNOSIS Failure to progress. OPERATION Primary low transverse section. ANESTHESIA Epidural. INDICATIONS Patient had been unchanged for 6 hours at 6 cm with adequate contractions. Desired to proceed with a . DESCRIPTION OF PROCEDURE After consent was given, patient taken to the operating room with epidural and a Pfannenstiel incision was made after transversing subcutaneous tissue and fascia. The peritoneum was identified. Peritoneal cavity entered and carried down anterior and posterior with Metzenbaum dissection. The bladder flap was taken down with sharp and blunt dissection. Lower incision made, carried laterally with finger traction. A viable female child delivered with fundal pressure and meconium-stained fluid. Baby had good Apgars. Was passed off to the nurse practitioner. With the 1st sponge count recorded as correct after the placenta had been delivered spontaneously and cleaned with a lap sponge, the uterus was closed with a running locked #1 chromic suture. With hemostasis being complete, tubes, ovaries, posterior aspect of the uterus noted to be normal, the abdomen was then closed with a running 0 chromic on the peritoneum, a #1 Vicryl running on the fascia, and skin closure with lizzette with the final instruments needle, sponge counts were recorded as correct. QUANTITATIVE BLOOD LOSS 676 cc. The patient returned to recovery room in good condition. MD Ritika CASPER JR 08/13/2021 01:11 [id number] T 08/13/2021 05:00 CAK/MODL Section Delivery Note Diagnosis: Principal Problem: Amniotic fluid leaking Mother's Information Delivery Blood Loss 08/12/21 0200 - 08/13/21 0112 Quantitative Blood Loss - Delivery (mL) Hospital Encounter 676 mL Total 676 mL Rodo Torres [[id number]] Delivery Anesthesia Method: Epidural Operative Delivery Forceps attempted?: No Vacuum extractor attempted?: No [place] Presentation Presentation: Vertex Information date/time: 08/13/217 Gender: Female Delivery type: , Low Transverse Delivery location: OB Unit Initial disposition: Routine NB Care ?: No Details: Trial of labor?: No categorization: Primary priority: Unscheduled Indications for : Failure to Progress Skin incision type: Pfannenstiel Delivery Providers Delivering clinician: Willie Nash Jr., MD Other personnel: Provider Role Covering Attending Resident Jayda Gibson CNM Banquet Cook Chasity Mccarthy RN Delivery Nurse Neelima Solis RN Registered Nurse Delivery Assist Sejal Saltzmann, CREAM RIPENER Nurse Practitioner Cord Vessels: 3 vessels Complications: None Delayed cord clamping?: Yes Cord clamped date/time: 08/13/202147 Cord blood obtained?: No Cord segment obtained?: Yes Gases sent?: Yes Stem cell collection (by Provider)?: No Placenta Date/time: 08/13/202148 Removal: Manual removal Appearance: Intact Disposition: Refrigerator Apgars Living status: Living Scoring Paige: 0 1 2 Skin color Blue or pale Acrocyanotic Completely pink Heart rate Absent <100 bpm >100 bpm Reflex irritability No response Grimace Cry or active withdrawal Muscle tone Limp Some flexion Active motion Respiratory effort Absent Weak cry; hypoventilation Good, crying Skin color: Heart rate: Reflex irritability: Muscle tone: Respiratory effort: Total: 1 Minute: 0 2 2 2 2 8 5 Minute: 1 2 2 2 2 9 10 Minute: 15 Minute: 20 Minute: Apgars assigned by: SEJAL MOREAU Measurements Weight: 7 lb 1.3 oz (3212 g) Length: 20 Head Circumference: 14 Lacerations No data filed Other Procedures Procedures: None Brief Post Operative Note Patient Name: Jay Torres : 1990 (31 y.o.) Date of Service: 08/13/2021 CSN: [id number] Procedure(s): SECTION Pre-Operative Diagnoses: * Failure to Progress Post-Operative Diagnoses: * Same as Pre-Op Diagnosis Surgeon(s) and Role: * Willie Nash Jr., MD - Primary * Jayda Gibson CNM - Assisting Anesthesiologist: Martina Wright MD CIGAR HEAD PUNCHER: Kristopher Mcpherson CRNA Hands Assembler: Chasity Mccarthy RN Scrub Person: ST Oniel Labor and Delivery Nurse: Neelima Solis RN Operative findings: normal pelvis Intra and immediate post-operative complicationsnone Type of anesthesia used: Epidural Quantitative blood loss: 676 mL from 08/13/2021 12:24 AM to 08/13/2021 1:12 AM Estimated urine output: 1600 mL Specimen(s): * No specimens in log * Implant(s): * No implants in log * Drain(s): Urethral Catheter Double-lumen 16 Fr. (Active) Reassessment Unchd X 08/13/2142 Site Assessment Clean 08/13/2142 Collection Container Urometer 08/12/211999 Securement Method Securing device 08/12/21 2000 Output (mL) 950 mL 08/12/21 1800 Wound(s): Wound 08/13/21 Surgical Wound Abdomen (Active) Willie Nash Jr., MD 08/13/2021 1:[address] Nash updated on SVE, unchanged since [address]. On way in for consent for primary Dr Nash updated on pt Cat II tracing/late decels, SVE /-1. Bolus infusing, Pitocin reduced to 8mu/min. Will continue to monitor closely and continue POC. CIGAR HEAD PUNCHER at bedside for epidural Pt ambulated from Triage 4 to L&D rm 2311 with S/O and RN. Orders for pitocin. at 40+6 presents c/o SROM around 0200. Clear fluid noted. Ctx q10 minutes. +FM. documented in this encounter [facility] 08-15-2021 Hospital course Narrative DISCHARGE SUMMARY Patient: Jay Torres Date of : 1990 Site: [facility] Provider: Elisha Ballard CNP Admit Date: 08/12/2021 Discharge Date/Time: 08/15/21 Afternoon Disposition: Home Clinical Summary Hospital Course: Jay Torres is a 31 y.o. female patient of Elisha Ballard CNP with a history of primary section for failure to progress. Postoperative course was uneventful. Discharge Diagnoses: section Surgeries: 08/12/21 SECTION Consults: No orders of the defined types were placed in this encounter. Allergies: Penicillins Discharge Diet: Condition: Good Discharge Medications: Discharge Medications New Medications Details acetaminophen 325 MG tablet Commonly known as: TYLENOL Take 2 (two) tablets (650 mg total) by mouth every 4 (four) hours as needed . Quantity: 30 tablet docusate sodium 100 MG capsule Commonly known as: COLACE Take 1 (one) capsule (100 mg total) by mouth 2 (two) times a day as needed for constipation . Quantity: 10 capsule ibuprofen 600 MG tablet Commonly known as: ADVIL,MOTRIN Take 1 (one) tablet (600 mg total) by mouth every 6 (six) hours as needed . Quantity: 30 tablet oxyCODONE 5 MG immediate release tablet Commonly known as: ROXICODONE Take 1 (one) tablet (5 mg total) by mouth every 6 (six) hours as needed (Days supply per fill: 7) . Quantity: 15 tablet Medications To Continue Details vitamin with Ca-Iron-FA 27-1 mg Tab Take 1 tablet by mouth daily . Physician(s) Family Provider: Elisha Ballard CNP, Address: [address] [place] [address] Dr Gong / [facility] [id number] Follow Up: No follow-up provider specified. Additional Information: Patient instructions, including activity, were given to the patient/family at discharge. Please see the After Visit Summary in the electronic medical record for details. Time spent on discharge: < 30 minutes Completed by: Katya Edwards MD on 08/15/21, 9:05 AM documented in this encounter [facility] 08-15-2021 History of Presen t illness Narrative POD#2 doing well af vss inc: c/d/i release home later today or tomorrow 31 yo POD1 LTCS. Doing well, pain controlled. Mod lochia. . AFVSS abd soft, ATTP, incision c/d/i. Postop hgb 10. Circled spots of serous appearing drainage on coverlet FACILITY ENGINEER NOTE Diagnosis: primary for failure to progress Surgeon: Willie Nash MD Bone Puller: Jayda Gibson CNM Pt has been unchanged for 6 H @ 6cm with adequate labor and desires to proceed with . Consent given [facility] TRIAGE NOTE Chief Complaint Patient presents with Rupture of Membranes care by: Boris record reviewed: Yes HPI: Leaking fluid at 0200 with continuous trickling. States nubain helped last night and was able to rest and having tolerable cramping. Patient reports positive FM. Patient denies LOF, VB, dysuria. REVIEW OF SYSTEMS: General: Denies excessive fatigue and fever Head: Denies headache and visual changes Cardio: Denies chest pain Respiratory: Denies shortness of breath GI: Denies nausea and vomiting : Denies urinary symptoms and abnormal discharge Medications Prior to Admission Medication Sig Dispense Refill Last Dose vitamin with Ca-Iron-FA 27-1 mg Tab Take 1 tablet by mouth daily . 08/11/2021 at Unknown time History reviewed. No pertinent past medical history. Past Surgical History: Procedure Laterality Date WISDOM TOOTH EXTRACTION OB History Para Term AB Living 1 0 0 0 0 0 SAB IAB Ectopic Multiple Live Births 0 0 0 0 0 # Outcome Date GA Lbr Jevon/2nd Weight Sex Delivery Anes PTL Lv 1 Current Social History: Patient reports that she has never smoked. She has never used smokeless tobacco. Patient denies alcohol use during . Patient reports no history of drug use. Vital Signs: BP Readings from Last 1 Encounters: 08/12/21 (!) 137/96 , Pulse Readings from Last 1 Encounters: 08/12/21 (!) 115 , Resp Readings from Last 1 Encounters: 08/12/21 16 , Temp Readings from Last 1 Encounters: 08/12/21 98.2 F (36.8 C) PHYSICAL EXAM: Consitutional: Well-appearing, NAD Psychological: Alert and oriented to person, place and time Neurological: No deficits Head/Neck: Supple, no masses/adenopathy, non-tender Skin: Normal temp and turgor, dry, intact Respiratory: Respirations even and unlabored Cardiovascular: Not assessed Abdomen: Soft, gravid, non-tender to palpation Back: No CVAT, no back pain Musculoskeletal: ROM x 4, normal gait Extremities: No BLE edema, non-tender Genitourinary: No masses or lesions SSE: postive pooling and nitrazine positive, positive fern VE: 1-2/60/-2 FHR: 140 baseline, moderate variability, positive accels, negative decels Uterine Activity: no ctx IMPRESSION: IUP at 40w6d with SROM clear fluid Reactive NST with greater than 20 minutes monitoring PLAN: HARVINDER Nash Admit for IP care documented in this encounter [facility] 08-13-2021 History and physi atul note 31 yo @ 40W6D with ROM H+p reviewed and no changes made documented in this encounter [facility] Diagnosis Encounter for well adult exam with abnormal findings- Primary Rectal bleeding Hemorrhage of rectum and anus [facility] Diagnosis Encounter for well adult exam with abnormal findings- Primary Rectal bleeding Hemorrhage of rectum and anus Screening for cardiovascular condition Screening for other and unspecified cardiovascular conditions Screening for lipid disorders [facility] Attachments The following attachments cannot be sent through Care Everywhere. * Section: Post-op (Wallisian) [facility]* Attachments The following attachments cannot be sent through Care Everywhere. * Rectal Bleeding (Wallisian) * Hemorrhoids (Wallisian) [facility]* Attachments The following attachments cannot be sent through Care Everywhere. * Rectal Bleeding (Wallisian) * Hemorrhoids (Wallisian) [facility] Reason for Referral Status Reason Specialty Diagnoses / Procedures Referred By Contact Referred To Contact Authorized Specialty Services Required/Patie nt's Best Interest Gastroenterology Diagnoses Diarrhea, unspecified type Elisha Ballard CNP [address] [place] [address] [place] [address] Instructions * Patient Instructions* Elisha Ballard CNP - 12/23/2018 2:00 PM EST Diarrhea: Care Instructions Your Care Instructions Diarrhea is loose, watery stools (bowel movements). The exact cause is often hard to find. Sometimes diarrhea is your body's way of getting rid of what caused an upset stomach. Viruses, food poisoning, and many medicines can cause diarrhea. Some people get diarrhea in response to emotional stress, anxiety, or certain foods. Almost everyone has diarrhea now and then. It usually isn't serious, and your stools will return tonormal soon. The important thing to do is replace the fluids you have lost, so you can prevent dehydration. The doctor has checked you carefully, but problems can develop later. If you notice any problems ornew symptoms, get medical treatment right away. Follow-up care is a paige part of your treatment and safety. Be sure to make and go to all appointments, and call your doctor if you are having problems. It's also a good idea to know your test resultsand keep a list of the medicines you take. How can you care for yourself at home? Watch for signs of dehydration, which means your body has lost too much water. Dehydration is a serious condition and should be treated right away. Signs of dehydration are: ? Increasing thirst and dry eyes and mouth. ? Feeling faint or lightheaded. ? Darker urine, and a smaller amount of urine than normal. To prevent dehydration, drink plenty of fluids, enough so that your urine is light yellow or clear like water. Choose water and other caffeine-free clear liquids until you feel better. If you have kidney, heart, or liver disease and have to limit fluids, talk with your doctor before you increase the amount of fluids you drink. Begin eating small amounts of mild foods the next day, if you feel like it. ? Try yogurt that has live cultures of Lactobacillus. (Check the label.) ? Avoid spicy foods, fruits, alcohol, and caffeine until 48 hours after all symptoms are gone. ? Avoid chewing gum that contains sorbitol. ? Avoid dairy products (except for yogurt with Lactobacillus) while you have diarrhea and for 3 days after symptoms are gone. The doctor may recommend that you take mghw-lta-ssbifnk medicine, such as loperamide (Imodium), if you still have diarrhea after 6 hours. Read and follow all instructions on the label. Do not use this medicine if you have bloody diarrhea, a high fever, or other signs of serious illness. Call your doctor if you think you are having a problem with your medicine. When should you call for help? Call 911 anytime you think you may need emergency care. For example, call if: You passed out (lost consciousness). Your stools are maroon or very bloody. Call your doctor now or seek immediate medical care if: You are dizzy or lightheaded, or you feel like you may faint. Your stools are black and look like tar, or they have streaks of blood. You have new or worse belly pain. You have symptoms of dehydration, such as: ? Dry eyes and a dry mouth. ? Passing only a little dark urine. ? Feeling thirstier than usual. You have a new or higher fever. Watch closely for changes in your health, and be sure to contact your doctor if: Your diarrhea is getting worse. You see pus in the diarrhea. You are not getting better after 2 days (48 hours). Where can you learn more? Log into your personal health record on https://[employer] and enter W335 in the Education box to learn more about Diarrhea: Care Instructions. Current as of: August 10, 2018 Content Version: 11.9 9252-0063 [employer]. Care instructions adapted under license by your healthcare professional. If you have questions about a medical condition or this instruction, always ask your healthcare professional. [employer] disclaims any warranty or liability for your use of this information. Well Visit, Ages 18 to 50: Care Instructions Your Care Instructions Physical exams can help you stay healthy. Your doctor has checked your overall health and may have suggested ways to take good care of yourself. He or she also may have recommended tests. At home, you can help prevent illness with healthy eating, regular exercise, and other steps. Follow-up care is a paige part of your treatment and safety. Be sure to make and go to all appointments, and call your doctor if you are having problems. It's also a good idea to know your test resultsand keep a list of the medicines you take. How can you care for yourself at home? Reach and stay at a healthy weight. This will lower your risk for many problems, such as obesity, diabetes, heart disease, and high blood pressure. Get at least 30 minutes of physical activity on most days of the week. Walking is a good choice. You also may want to do other activities, such as running, swimming, cycling, or playing tennis or team sports. Discuss any changes in your exercise program with your doctor. Do not smoke or allow others to smoke around you. If you need help quitting, talk to your doctor about stop-smoking programs and medicines. These can increase your chances of quitting for good. Talk to your doctor about whether you have any risk factors for sexually transmitted infections (STIs). Having one sex partner (who does not have STIs and does not have sex with anyone else) is a good way to avoid these infections. Use control if you do not want to have children at this time. Talk with your doctor about thechoices available and what might be best for you. Protect your skin from too much sun. When you're outdoors from 10 a.m. to 4 p.m., stay in the shadeor cover up with clothing and a hat with a wide brim. Wear sunglasses that block UV rays. Even whenit's cloudy, put broad-spectrum sunscreen (SPF 30 or higher) on any exposed skin. See a dentist one or two times a year for checkups and to have your teeth cleaned. Wear a seat belt in the car. Drink alcohol in moderation, if at all. That means no more than 2 drinks a day for men and 1 drink a day for women. Follow your doctor's advice about when to have certain tests. These tests can spot problems early. For everyone Cholesterol. Have the fat (cholesterol) in your blood tested after age 20. Your doctor will tell you how often to have this done based on your age, family history, or other things that can increase your risk for heart disease. Blood pressure. Have your blood pressure checked during a routine doctor visit. Your doctor will tell you how often to check your blood pressure based on your age, your blood pressure results, and other factors. Vision. Talk with your doctor about how often to have a glaucoma test. Diabetes. Ask your doctor whether you should have tests for diabetes. Colon cancer. Have a test for colon cancer at age 50. You may have one of several tests. If you areyounger than 50, you may need a test earlier if you have any risk factors. Risk factors include whether you already had a precancerous polyp removed from your colon or whether your parent, brother, si ster, or child has had colon cancer. For women Breast exam and mammogram. Talk to your doctor about when you should have a clinical breast exam and a mammogram. Medical experts differ on whether and how often women under 50 should have these tests. Your doctor can help you decide what is right for you. Pap test and pelvic exam. Begin Pap tests at age 21. A Pap test is the best way to find cervical cancer. The test often is part of a pelvic exam. Ask how often to have this test. Tests for sexually transmitted infections (STIs). Ask whether you should have tests for STIs. You may be at risk if you have sex with more than one person, especially if your partners do not wear condoms. For men Tests for sexually transmitted infections (STIs). Ask whether you should have tests for STIs. You may be at risk if you have sex with more than one person, especially if you do not wear a condom. Testicular cancer exam. Ask your doctor whether you should check your testicles regularly. Prostate exam. Talk to your doctor about whether you should have a blood test (called a PSA test) for prostate cancer. Experts differ on whether and when men should have this test. Some experts suggest it if you are older than 45 and are -Citizen Of [place] or have a father or brother who got prostatecancer when he was younger than 65. When should you call for help? Watch closely for changes in your health, and be sure to contact your doctor if you have any problems or symptoms that concern you. Where can you learn more? Log into your personal health record on https://[employer] and enter P072 in the Education box to learn more about Well Visit, Ages 18 to 50: Care Instructions. Current as of: February 12, 2018 Content Version: 11.9 9361-5413 [employer]. Care instructions adapted under license by your healthcare professional. If you have questions about a medical condition or this instruction, always ask your healthcare professional. [employer] disclaims any warranty or liability for your use of this information. in this encounter* Patient Instructions* Jane Segovia PA-C - 10/24/2020 6:37 PM EST If no improvement of symptoms in 3-5 days, follow up with PCP. If symptoms worsen or new ones develop, go to the ER immediately for further evaluation. We would love to have your feedback regarding the visit, good or bad! Please watch for survey in your email Treating Coronavirus at Home The coronavirus (COVID-19) sounds scary, and for some people, especially those with underlying conditions, it very well may be. But most people will likely have a mild coronavirus case. Here's what you need to treat a mild case at home. If You Are Sick With Coronavirus First and foremost, STAY HOME! This applies even if you don't have a confirmed case but have coronavirus symptoms. Practice social distancing by staying in a room with a dedicated bathroom, if possible, away from other members of your household. If you must share a bathroom, it will have to be cleaned for coronavirus after each use. Do not have any visitors. If you must be around other people, wear a face mask. Others in your household and you should continue to practice these ways to protect against the coronavirus: Wash your hands often. Cough into a tissue that you throw away immediately in a plastic-lined wastebasket. Clean frequently touched surfaces every day; some may need it several times a day. Don't share personal items, like dishes, towels or bedding. Make sure your clothing and linens are washed thoroughly. You should also limit contact with pets while sick. When sick, the CDC recommends keeping your distance from animals until more is known about the virus. If your symptoms become severe, you should call your doctor Some of these symptoms include: Trouble breathing Persistent pain or pressure in the chest New confusion or can't be woken up Lips or face turning blue If the symptoms are life-threatening, go to the hospital emergency room right away. Are There Medicines for Coronavirus? According to the CDC and WHO, there are no medicines or immunizations right now to treat the COVID-19 virus. At this time, please don't believe in any products that claim to prevent or treat the coronavirus at this time. Additionally, antibiotics only treat bacteria, so they are not effective in treating this virus. What you can do is treat the symptoms so that you recover as quickly as possible. The body is designed to fight viruses, and for most people, it does successfully on its own. If you are generally healthy, your body is likely to feel better after a few days and be totally recovered in about a week from the novel coronavirus. However, you may still be contagious for anotherweek or so, which is why there is a 14-day quarantine recommended for anyone who gets the coronavirus. How Can I Treat Coronavirus Symptoms? The main symptoms of the novel coronavirus are fever, cough and shortness of breath. For a Fever Take a fever woven wood shade assembler. If you choose to or if your fever is very high, you can take a fever woven wood shade assembler.Acetaminophen is what is usually recommended. While ibuprofen is also a fever woven wood shade assembler, there is some concern that it may not be safe to take with the novel coronavirus. More research needs to be doneto know for sure. Stay hydrated. Fevers usually cause sweating, which means loss of water from your body. Drink lots of fluids (preferably water or juice and not soda or high sugar beverages that might make you thirstier). Caffeinated beverages are not recommended. Rest. Your body needs energy to fight the virus. Just rest up and let your body do its job. For a Cough Sip on drinks throughout the day. Not only will this keep your throat moist and comfortable, it will help keep you hydrated. Drink warm beverages, like tea or broth. These heat up the airways, keep you hydrated and break up any mucus you might have in your throat and upper airway. Try a teaspoon of honey in hot tea or hot water. A little bit of honey tends to soothe a sore throat. However, children under 1 year old should not try honey. Breathe in steam. Use a hot shower, humidifier, vaporizer or other means of making steam. It will soothe a sore throat and open your airways, making it easier to breathe. Gargle salt water. While it is not scientifically proven to help, many people swear that salt waterhelps their sore throat. There is no harm in trying, and it might help you. Use 1 teaspoon of salt in 8 ounces of warm water. Make sure you spit it out and disinfect the sink afterward. Eat a frozen treat. The coldness may help numb the pain and soothe your throat if it is sore from coughing. Suck on cough drops, lozenges or hard candy. These will keep your mouth and throat moist. Try cough medicine. If you have a wet cough with lots of mucus, you want to take an expectorant to help get the mucus out. If you have a dry cough, a cough suppressant is what you want. Make sure youchoose the right one. For pain, try acetaminophen. Sometimes a lot of coughing can be painful. A pain reliever can take the edge off. For Shortness of Breath Take slow breaths. Slowing things down can help you start breathing again properly. Try relaxation or meditation techniques. These will help calm the body and get your breathing more regular. Additionally, having shortness of breath may leave you feeling anxious. These relaxation techniques will help fight the anxiety. If you were previously prescribed an inhaler, you may need to use it. Pay attention to how your chest feels and what symptoms your inhaler was prescribed for. Do not use someone else's inhaler only use one that is prescribed to you. Make sure you disinfect the mouthpiece after every use. Takeaways Most people will have mild coronavirus symptoms. There is no cure for this virus, but there are many simple ways to treat the symptoms that will help your body fight the virus. Most people will feel better after a few days and feel totally fine within a week. However, they will still be contagious, so they should remain in isolation for 14 days from the time of first symptoms. Treat the fever, cough and shortness of breath with the techniques listed above and you will most likely feel better shortly. Staying hydrated and resting will help the most. Remember to stay away from other people and practice good cleanliness protocol to protect your loved ones from terese the virus as well. For fever, take acetaminophen (tylenol) - max dose is 3,000mg/24 hours. Try OTC meds for additional symptomatic relief (if they contain tylenol, use as directed on box anddo not take additional tylenol) You may still feel unwell, including fever, shortness of breath and cough - CALL your PCP if your symptoms are lingering or not improving. It can take anywhere from 7-21 days to feel better. If they begin worsening or have a medical emergency, please go immediately to the ER. Minimize any visitors and do not go visit others. Have others do your grocery shopping for you. If you have to leave the house, please cover your mouth with a mask or a scarf. This is for you to prevent spread of the virus to others; it does not protect you from others. Do you have dyspnea (shortness of breath/difficulty breathing)? ? What activities that you could previously do without difficulty are now causing you to be out of breath? ? Has this gotten worse over the last one, two, or three days? ? Are you breathing harder or faster than usual when sitting still? ? Can you no longer do your usual household activities due to shortness of breath? ? Does walking cause you to feel dizzy? If yes to any of the above, you are having shortness of breath. ?Mild does not interfere with daily activities (eg, mild shortness of breath with activities such as climbing one to two flights of stairs or walking briskly). ?Moderate creates limitations to activities of daily living (eg, shortness of breath that limits the ability to walk up one flight of stairs without needing to rest, or interferes with meal preparation and light housekeeping tasks). ?Severe shortness of breath at rest, renders the patient unable to speak in complete sentences, andinterferes with basic activities such as toileting and dressing. Learning About Hypoxemia (low oxygen levels) What is hypoxemia? Hypoxemia means that you don't have enough oxygen in your blood. It's a result of diseases that affect your heart or lungs. These include heart failure, COPD, and pulmonary fibrosis (scarring of the lungs). Being at high altitudes can also lead to hypoxemia. What happens when you have hypoxemia? Oxygen gets into your blood through your lungs. Your blood carries the oxygen to all parts of your body. When you have too little oxygen in your blood, your body doesn't get enough of it. With too little oxygen, your heart and other parts of your body don't work very well. What are the symptoms? In addition to the symptoms of whatever is causing your hypoxemia, you may: Get tired quickly. Be short of breath when you are active. Feel like your heart is pounding or racing. Feel weak or dizzy. Become confused. How is hypoxemia treated? Your doctor will do tests to find out how much oxygen is in your blood. He or she will look for thecause of your hypoxemia and treat that problem. For example, if you have heart failure, you may need medicines that help your heart pump better. If your hypoxemia is not severe, your doctor may give you oxygen through a mask or nasal cannula (say Donnie ). A cannula is a thin tube with two openings that fit just inside your nose. If your hypoxemia is severe, you may have a breathing tube put into your windpipe. The breathing tube is attached to a machine that pushes air into your lungs. This machine is called a ventilator. If you have a long-term problem with hypoxemia, your doctor may recommend that you use oxygen regularly. Some people need it all the time. Others need it from time to time throughout the day or overnight. Your doctor will tell you how much oxygen you need and how often to use it. Follow-up care is a paige part of your treatment and safety. Be sure to make and go to all appointments, and call your doctor if you are having problems. It's also a good idea to know your test resultsand keep a list of the medicines you take. Where can you learn more? Log into your personal health record on https://Alorum.DockPHP and enter M375 in the Education box to learn more about Learning About Hypoxemia. Current as of: April 26, 2019 Content Version: 12.3 1205-5399 [employer]. Care instructions adapted under license by your healthcare professional. If you have questions about a medical condition or this instruction, always ask your healthcare professional. [employer] disclaims any warranty or liability for your use of this information. [facility] COVID-19 Post-swabbing Instructions We will do our best to update you as soon as we receive your test results, but if we had to send your test to be run at the lab, you may see the results on Alorum or receive a call from [facility] before we are able to contact you. You should receive a call from our COVID-19 results provider as soon as possible. If you test POSITIVE for COVID-19: Isolate until: - it has been 10 days since you developed symptoms AND - you have been without a fever (100.4 F) for at least 24 hours without the use of fever reducing medication AND - your symptoms are improving Isolation is when you test positive for COVID-19 and is meant to keep the infected person away fromall others, even in their own home. If you live with others, stay in a specific sick room or area and away from other people or animals, including pets. Use a separate bathroom, if available. Seek emergency medical care immediately if you develop worsening warning signs including: - trouble breathing - persistent pain or pressure in the chest - new confusion - inability to wake or stay awake - bluish lips or face It is not recommended by the [facility] to have another COVID-19 test done in order to discontinue isolation or return to work/school. We can provide return to work and school documentation as needed. When Do I Self-Quarantine? You should quarantine if you have had a significant exposure which is defined as having been in close contact (as defined below) with someone that has a laboratory confirmed infection from COVID-19 or that person was diagnosed by a medical professional. This includes contact within 48 hours prior to when the COVID-19 positive person developed symptoms. - Quarantine is used to keep someone who might have been exposed to COVID-19 away from others. - Quarantine helps prevent spread of disease that can occur before a person knows they are sick or if they are infected with the virus without feeling symptoms. - People in quarantine should stay home, separate themselves from others, monitor their health, andfollow directions from their state or local health department. What counts as close contact? - You were within 6 feet of someone who has COVID-19 for at least 15 minutes - You provided care at home to someone who is sick with COVID-19 - You had direct physical contact with the person (touched, hugged, or kissed them) - You shared eating or drinking utensils - They sneezed, coughed, or somehow got respiratory droplets on you When and How Will I Get Results? Tests performed in the clinic will be available within 15-20 minutes from initiation of test. If your test was sent out to the lab for testing, it could take anywhere from 1-5 days after your specimen is collected. The provider/practice who placed the order for your test will notify you of your results. - If you have an active Alorum account, and your COVID-19 test is negative (not detected), then you will be notified through your Alorum account. You should call the urgent care if you have any further questions. - If your COVID-19 test is positive (detected), you will receive a phone call to discuss your results and answer any questions you might have at that time. Please make sure [facility] has your updated phone number so we can contact you. [facility] will notify the [facility] of any positive results to comply with state regulations. What Happens After I Get Tested if I Develop Worsening COVID-19 Symptoms? All patients should self-quarantine at home until they receive their test results. While self-quarantining, contact your PCP or return to the urgent care if you develop any of the following: - A fever of 103 degrees F (39.4 C) or higher - A fever that lasts more than 3 days without medication - A fever that returns after being gone for more than 24 hours - Chest pain or difficulty breathing - A worsening of current symptoms For work concerns, please contact your employer's HR department. How Do I Self-Quarantine? - Stay home until 14 days after last exposure and maintain social distance (at least 6 feet) from others at all times - Avoid contact with people at higher risk for severe illness from COVID-19 - Self-monitor for symptoms: - Check temperature twice a day - Watch for fever (100.4F or higher), cough, shortness of breath, or other CDC recognized symptoms of COVID-19 If I test positive, what about those with which I have had close contact (household members, partners, close friends, etc)? Anyone with close contact (as defined above) within 48 hours prior to when the COVID-19 positive person developed symptoms should self-quarantine. This includes during the 10 day quarantine period. So, if your family is unable to isolate from you - they must wait your 10 days, plus additional quarantine as described below. If they develop symptoms - they should quarantine for the entire 14 days from their exposure to you. A negative test, while having symptoms, does not change this recommendation. If they do not develop symptoms and are no longer exposed to you: Without testing, quarantine can end after 10 days from the last exposure to a known positive COVID person. If they test negative, and their test was done at least 5 days from their last known COVID exposure, their quarantine can end after 7 days. They must continue to monitor symptoms daily for all 14 days. However, if at any time during those 14 days they develop symptoms you must self-isolate and follow up for further evaluation. What Do I Do If I am Sick? Stay Home: If you are sick, stay home from work, school, public places, and social gatherings Social Distance: maintain 6 feet of distance from other people. Monitor Your Symptoms: If you develop fever, shortness of breath, confusion, or any respiratory symptoms, please notify your doctor immediately Cover Your Cough: Cough and sneeze into your shirt sleeve or inner elbow. Do not cough into your hands or into the air. If available, cough into a tissue and throw it into a trash can. Wash Your Hands: Wash hands often with soap and warm water and/or alcohol based hand hunter, scrubbing your hands for at least 20 seconds. Wash your hands after sneezing or coughing, after going to the bathroom, and before eating or drinking. Wear a Mask: Wear a face mask when around others. Always wear a face mask (if able) if you have to leave your home Don't Touch: avoid touching your eyes, nose, and mouth Don't Share: avoid sharing items with others as they can spread infection Call First: If you do need to seek urgent medical care, call the facility first to let them know you are on your way Other COVID Questions? CDC - https://www.cdc.gov/coronavirus/2019-ncov/index.html - https://www.cdc.gov/coronavirus/2019-ncov/sz-sqn-gpy-sick/quarantine.html [facility] - Website: https://coronavirus.[place].gov/wps/portal/gov/covid-19/home - Hotline: 024-8-CWJ-ODH (827-489-2593) [place]: https://blog.DockPHP/series/lcsie-92-brijppbvxqr-toolkit/ documented in this encounter History of Present Illness * Elisha Ballard CNP - 12/23/2018 1:26 PM EST Assessment: Healthy female exam. Preventative health care Continue with healthy lifestyle, nutrition and exercise. Self checks monthly for health maintainence and follow up if abnormality Call with questions or concerns. Patient verbalized understanding. Diarrhea Diarrhea is intermittent and no consistent Food diary did not show any patterns Medications discussed but patient would rather see GI first GI referral made Patient will call with questions or concerns. Patient verbalized understanding. Plan: 1. Labs done prior and this reviewed with patient today 2. Patient Counseling: --Nutrition: Stressed importance of moderation in sodium/caffeine intake, saturated fat and cholesterol, caloric balance, sufficient intake of fresh fruits, vegetables, fiber, calcium, iron, and 1 mgof folate supplement per day (for females capable of ). --Exercise: Stressed the importance of regular exercise. --Substance Abuse: Discussed cessation/primary prevention of tobacco, alcohol, or other drug use; driving or other dangerous activities under the influence; availability of treatment for abuse. --Sexuality: Discussed sexually transmitted diseases, partner selection, use of condoms, avoidance of unintended and contraceptive alternatives. --Injury prevention: Discussed safety belts, safety helmets, smoke detector. --Dental health: Discussed importance of regular tooth brushing, flossing, and dental visits. --Immunizations reviewed. --Discussed benefits of screening colonoscopy. --After hours service discussed with patient 3. Discussed the patient's BMI with her. The BMI is in the acceptable range 4. Follow up in one year Subjective Jay Torres is a 28 y.o. female and is here for a comprehensive physical exam. The patient reports problems - Pt is still having diarrhea couple times daily, mostly am and after dinner but not daily. Food diary did not reveal any patterns or foods responsible. No warning, No cramping, pain or blood. Has been going on for 1-2 years, not attached to stressors and only is at home Do you take any herbs or supplements that were not prescribed by a doctor? no Are you taking calcium supplements? no Are you taking aspirin daily? no History: LMP: Patient's last menstrual period was 12/08/2018 (exact date). Last pap date: Pt is due at next appt [facility] Abnormal pap? no : 0 Para: 0 The following portions of the patient's history were reviewed and updated as appropriate: allergies, current medications, past family history, past medical history, past social history, past surgicalhistory and problem list. Review of Systems Do you have pain that bothers you in your daily life? no Pertinent items are noted in HPI. Objective BP 134/89 (BP Location: Left arm, Patient Position: Sitting, BP Cuff Size: Adult) Pulse 95 Temp97.6 F (36.4 C) (Oral) Ht 5' 2 Wt 70.1 kg (154 lb 10.4 oz) LMP 12/08/2018 (Exact Date) SpO2 99% BMI 28.29 kg/m General appearance: alert, appears stated age and cooperative Head: Normocephalic, without obvious abnormality, atraumatic Eyes: conjunctivae/corneas clear. PERRL, EOM's intact. Fundi benign. Ears: normal TM's and external ear canals both ears Nose: Nares normal. Septum midline. Mucosa normal. No drainage or sinus tenderness. Throat: lips, mucosa, and tongue normal; teeth and gums normal Neck: no adenopathy, supple, symmetrical, trachea midline and thyroid not enlarged, symmetric, no tenderness/mass/nodules Back: symmetric, no curvature. ROM normal. No CVA tenderness. Lungs: clear to auscultation bilaterally Heart: regular rate and rhythm, S1, S2 normal, no murmur, click, rub or gallop Abdomen: soft, non-tender; bowel sounds normal; no masses, no organomegaly Extremities: extremities normal, atraumatic, no cyanosis or edema Pulses: 2+ and symmetric Skin: Skin color, texture, turgor normal. No rashes or lesions Lymph nodes: Cervical, supraclavicular, and axillary nodes normal. Neurologic: Grossly normal Self breast exam and lymph and genital exam reviewed patient but deferred today. Patient verbalized understanding to do monthly and report abnormality immediately. in this encounter* Jody Cook LPN - 07/13/2019 1:03 PM EDT Patient was seen at the ED on 07/11/19. Patient is to follow up with Work Health. documented in this encounter* Carla Mercer, - 11/24/2019 11:32 AM EST [facility] [address] [facility] [id number] Jay Torres is here today for follow-up. The encounter diagnosis was Irritable bowel syndrome with diarrhea. HPI: Jay is being seen today in follow-up for her IBS. She reports that she is doing relatively about the same. We have discussed that her work-up from her previous office visit was normal. She has had no development of any type of red flags or alarm signals. She is currently comfortable with her symptoms with regards to them not being very severe or wanting any type of medication for them at this point. BP 130/83 Pulse 87 Wt 72.3 kg (159 lb 4.8 oz) BMI 29.14 kg/m 72.3 kg (159 lb 4.8 oz) Body mass index is 29.14 kg/m . Physical Exam Constitutional: Patient is oriented to person, place, and time. Head: Normocephalic and atraumatic. Eyes: Pupils are equal, round, and reactive to light. Neck: No thyromegaly present. Cardiovascular: Normal rate, rhythm, and normal heart sounds. Exam reveals no friction rub. No murmur heard. Pulmonary/Chest: No respiratory distress. Clear bilaterally without wheeze or rhonchi. Abdominal: Soft. Normal appearance and bowel sounds are normal. No distension and no mass, or hepatosplenomegaly. There is no tenderness or rebound. Extremeties: No clubbing, cyanosis, or edema. Musculoskeletal: Normal range of motion. Patient exhibits no edema. Neurological: No focal deficits. Skin: No rash noted. No erythema. Labs: Potassium Date Value Ref Range Status 07/07/2019 4.4 3.5 - 5.1 mmol/L Final Chloride Date Value Ref Range Status 07/07/2019 104 98 - 108 mmol/L Final Glucose Date Value Ref Range Status 07/07/2019 87 65 - 99 mg/dL Final BUN Date Value Ref Range Status 07/07/2019 10 8 - 25 mg/dL Final Creatinine Date Value Ref Range Status 07/07/2019 0.69 0.40 - 1.10 mg/dL Final eGFR Date Value Ref Range Status 07/07/2019 119 >=60 mL/min/1.73 m2 Final BUN/Creatinine Ratio Date Value Ref Range Status 07/07/2019 14.5 10.0 - 20.0 Final Total Protein Date Value Ref Range Status 07/13/2019 7.6 6.0 - 8.0 g/dL Final Albumin Date Value Ref Range Status 07/13/2019 5.0 3.2 - 5.2 g/dL Final Calcium Date Value Ref Range Status 07/13/2019 9.6 8.4 - 10.2 mg/dL Final Alkaline Phosphatase Date Value Ref Range Status 07/13/2019 61 40 - 140 U/L Final AST Date Value Ref Range Status 07/13/2019 13 0 - 45 U/L Final ALT Date Value Ref Range Status 07/13/2019 15 0 - 40 U/L Final Total Bilirubin Date Value Ref Range Status 07/13/2019 0.4 0.0 - 1.3 mg/dL Final WBC Date Value Ref Range Status 07/07/2019 6.34 4.50 - 11.00 K/mcL Final RBC Date Value Ref Range Status 07/07/2019 4.91 4.00 - 5.20 M/mcL Final Hemoglobin Date Value Ref Range Status 07/07/2019 14.2 12.0 - 16.0 g/dL Final Hematocrit Date Value Ref Range Status 07/07/2019 43.5 36.0 - 46.0 % Final MCV Date Value Ref Range Status 07/07/2019 88.6 80.0 - 100.0 fL Final MCH Date Value Ref Range Status 07/07/2019 28.9 26.0 - 34.0 pg Final MCHC Date Value Ref Range Status 07/07/2019 32.6 31.0 - 37.0 g/dL Final Platelets Date Value Ref Range Status 07/07/2019 207 150 - 400 K/mcL Final RDW - CV Date Value Ref Range Status 07/07/2019 13.1 11.6 - 14.8 % Final MPV Date Value Ref Range Status 07/07/2019 11.3 9.0 - 15.5 fL Final Imaging: Assessment and Plan: Problem List Items Addressed This Visit Digestive Irritable bowel syndrome with diarrhea - Primary Clinically Jay is doing relatively well overall I have discussed with family that at any point if she has a change in her symptoms for the worse where she decides that she would like to trial something to help with both the cramping and the diarrhea then she can simply call me and we will go ahead and order an antispasmodic for her. We have alsodiscussed that if she would like something for her diarrhea she can use something like loperamide [id number] and we have discussed a titration and dosing of this as well Thank you very much for allowing me to participate in your patient's care and if you have any further questions please do not hesitate to call. Sincerely; Carla Mercer DO CC: No ref. provider found documented in this encounter* Jane Segovia PA-C - 10/24/2020 6:07 PM EST Patient Name: [facility] Location: [place] [address] [place] [id number] Date Of : Date Of Visit: 1990 10/24/2020 MRN# Provider: [id number] Jane Segovia PA-C Chief Complaint Patient presents with Covid-19 Screening x4days, lost of taste and smell, cough, congestion Assessment & Plan 1. Anosmia Covid-19/Influenza Order Algorithm 2. Contact with and (suspected) exposure to other viral communicable diseases Covid-19/Influenza Order Algorithm No follow-ups on file. Medical Decision Making COVID positive. Discussed self-quarantine. PCP notified of positive result. Additional Clinical Comments Discussed over the counter medications for symptomatic management and side effects of medications. Recommended taking all medications with food and to stop medications if they develop any signs of anallergic reaction. Educated patient and/or guardian about signs and symptoms that would warrant further immediate evaluation. Recommended that they should return to urgent care, make an appointment with their family physician, or go to the emergency room if symptoms persist or get acutely worse. Recommended follow upwithin the next week with their PCP or to get established with a PCP soon in order to follow up appropriately. Influenza Immunization Patient UTD. Flu shot documented in chart under Health Maintenance. [facility] COVID-19 Mask Status: Does the patient have classic COVID-19 symptoms? Yes, the patient has COVID-19 symptoms, the patient WAS wearing a mask during the visit and I (the provider) WAS wearing full PPE (N95 mask, gown, gloves, and face shield) during the visit. Subjective 30 y.o. female presents with Covid-19 Screening (x4days, lost of taste and smell, cough, congestion) No known exposure URI This is a new problem. The current episode started in the past 7 days. The problem has been gradually worsening. There has been no fever. Associated symptoms include congestion, coughing and rhinorrhea. Pertinent negatives include no abdominal pain, chest pain, diarrhea, dysuria, ear pain, headaches, joint pain, joint swelling, nausea, neck pain, plugged ear sensation, rash, sinus pain, sneezing,sore throat, swollen glands, vomiting or wheezing. Associated symptoms comments: Loss of taste/smell. Treatments tried: OTC meds. Review Of Systems Review of Systems Constitutional: Negative for chills, diaphoresis, fatigue and fever. HENT: Positive for congestion and rhinorrhea. Negative for ear pain, sinus pain, sneezing and sore throat. Respiratory: Positive for cough. Negative for chest tightness and wheezing. Cardiovascular: Negative for chest pain. Gastrointestinal: Negative for abdominal pain, diarrhea, nausea and vomiting. Genitourinary: Negative for dysuria. Musculoskeletal: Negative for joint pain and neck pain. Skin: Negative for rash. Neurological: Negative for headaches. Medical History History reviewed. No pertinent past medical history. Past Surgical History: Procedure Laterality Date WISDOM TOOTH EXTRACTION Patient Active Problem List Diagnosis Preventative health care Diarrhea Irritable bowel syndrome with diarrhea Social History Social History Tobacco Use Smoking status: Never Smoker Smokeless tobacco: Never Used Substance Use Topics Alcohol use: Yes Alcohol/week: 2.0 standard drinks Types: 2 Glasses of wine per week Drug use: Never Family History Family History Problem Relation Age of Onset Non-Hodgkin's Lymphoma Father 56 No Known Problems Mother Objective Physical Exam Pulse 92 Temp 98.1 F (36.7 C) (Infrared) Ht 5' 3 Wt 65.8 kg (145 lb) SpO2 99% BMI 25.69 kg/m Vision/Hearing Exam:No exam data present Physical Exam Constitutional: Appearance: She is well-developed. HENT: Head: Normocephalic and atraumatic. Right Ear: Tympanic membrane normal. Left Ear: Tympanic membrane normal. Nose: Nose normal. Cardiovascular: Rate and Rhythm: Normal rate and regular rhythm. Heart sounds: Normal heart sounds. Pulmonary: Effort: Pulmonary effort is normal. Breath sounds: Normal breath sounds. Lymphadenopathy: Cervical: No cervical adenopathy. Skin: General: Skin is warm and dry. Neurological: Mental Status: She is alert and oriented to person, place, and time. Procedure Notes Procedures Results Recent Results (from the past 168 hour(s)) COVID-19, Molecular Collection Time: 10/24/20 6:37 PM Specimen: Nasopharyngeal; Swab Result Value Ref Range SARS-CoV-2 Detected (A) Not Detected Internal Control Pass No orders to display Orders Placed This Visit Orders Placed This Encounter Procedures Covid-19/Influenza Order Algorithm COVID-19, Molecular Medication List At End Of Visit Current Outpatient Medications Medication Sig Dispense Refill drospirenone-ethinyl estradiol (OCELLA) 3-0.03 mg per tablet No current facility-administered medications for this visit. Patient Instructions If no improvement of symptoms in 3-5 days, follow up with PCP. If symptoms worsen or new ones develop, go to the ER immediately for further evaluation. We would love to have your feedback regarding the visit, good or bad! Please watch for survey in your email Treating Coronavirus at Home The coronavirus (COVID-19) sounds scary, and for some people, especially those with underlying conditions, it very well may be. But most people will likely have a mild coronavirus case. Here's what you need to treat a mild case at home. If You Are Sick With Coronavirus First and foremost, STAY HOME! This applies even if you don't have a confirmed case but have coronavirus symptoms. Practice social distancing by staying in a room with a dedicated bathroom, if possible, away from other members of your household. If you must share a bathroom, it will have to be cleaned for coronavirus after each use. Do not have any visitors. If you must be around other people, wear a face mask. Others in your household and you should continue to practice these ways to protect against the coronavirus: Wash your hands often. Cough into a tissue that you throw away immediately in a plastic-lined wastebasket. Clean frequently touched surfaces every day; some may need it several times a day. Don't share personal items, like dishes, towels or bedding. Make sure your clothing and linens are washed thoroughly. You should also limit contact with pets while sick. When sick, the CDC recommends keeping your distance from animals until more is known about the virus. If your symptoms become severe, you should call your doctor Some of these symptoms include: Trouble breathing Persistent pain or pressure in the chest New confusion or can't be woken up Lips or face turning blue If the symptoms are life-threatening, go to the hospital emergency room right away. Are There Medicines for Coronavirus? According to the CDC and WHO, there are no medicines or immunizations right now to treat the COVID-19 virus. At this time, please don't believe in any products that claim to prevent or treat the coronavirus at this time. Additionally, antibiotics only treat bacteria, so they are not effective in treating this virus. What you can do is treat the symptoms so that you recover as quickly as possible. The body is designed to fight viruses, and for most people, it does successfully on its own. If you are generally healthy, your body is likely to feel better after a few days and be totally recovered in about a week from the novel coronavirus. However, you may still be contagious for anotherweek or so, which is why there is a 14-day quarantine recommended for anyone who gets the coronavirus. How Can I Treat Coronavirus Symptoms? The main symptoms of the novel coronavirus are fever, cough and shortness of breath. For a Fever Take a fever woven wood shade assembler. If you choose to or if your fever is very high, you can take a fever woven wood shade assembler.Acetaminophen is what is usually recommended. While ibuprofen is also a fever woven wood shade assembler, there is some concern that it may not be safe to take with the novel coronavirus. More research needs to be doneto know for sure. Stay hydrated. Fevers usually cause sweating, which means loss of water from your body. Drink lots of fluids (preferably water or juice and not soda or high sugar beverages that might make you thirstier). Caffeinated beverages are not recommended. Rest. Your body needs energy to fight the virus. Just rest up and let your body do its job. For a Cough Sip on drinks throughout the day. Not only will this keep your throat moist and comfortable, it will help keep you hydrated. Drink warm beverages, like tea or broth. These heat up the airways, keep you hydrated and break up any mucus you might have in your throat and upper airway. Try a teaspoon of honey in hot tea or hot water. A little bit of honey tends to soothe a sore throat. However, children under 1 year old should not try honey. Breathe in steam. Use a hot shower, humidifier, vaporizer or other means of making steam. It will soothe a sore throat and open your airways, making it easier to breathe. Gargle salt water. While it is not scientifically proven to help, many people swear that salt waterhelps their sore throat. There is no harm in trying, and it might help you. Use 1 teaspoon of salt in 8 ounces of warm water. Make sure you spit it out and disinfect the sink afterward. Eat a frozen treat. The coldness may help numb the pain and soothe your throat if it is sore from coughing. Suck on cough drops, lozenges or hard candy. These will keep your mouth and throat moist. Try cough medicine. If you have a wet cough with lots of mucus, you want to take an expectorant to help get the mucus out. If you have a dry cough, a cough suppressant is what you want. Make sure youchoose the right one. For pain, try acetaminophen. Sometimes a lot of coughing can be painful. A pain reliever can take the edge off. For Shortness of Breath Take slow breaths. Slowing things down can help you start breathing again properly. Try relaxation or meditation techniques. These will help calm the body and get your breathing more regular. Additionally, having shortness of breath may leave you feeling anxious. These relaxation techniques will help fight the anxiety. If you were previously prescribed an inhaler, you may need to use it. Pay attention to how your chest feels and what symptoms your inhaler was prescribed for. Do not use someone else's inhaler only use one that is prescribed to you. Make sure you disinfect the mouthpiece after every use. Takeaways Most people will have mild coronavirus symptoms. There is no cure for this virus, but there are many simple ways to treat the symptoms that will help your body fight the virus. Most people will feel better after a few days and feel totally fine within a week. However, they will still be contagious, so they should remain in isolation for 14 days from the time of first symptoms. Treat the fever, cough and shortness of breath with the techniques listed above and you will most likely feel better shortly. Staying hydrated and resting will help the most. Remember to stay away from other people and practice good cleanliness protocol to protect your loved ones from terese the virus as well. For fever, take acetaminophen (tylenol) - max dose is 3,000mg/24 hours. Try OTC meds for additional symptomatic relief (if they contain tylenol, use as directed on box anddo not take additional tylenol) You may still feel unwell, including fever, shortness of breath and cough - CALL your PCP if your symptoms are lingering or not improving. It can take anywhere from 7-21 days to feel better. If they begin worsening or have a medical emergency, please go immediately to the ER. Minimize any visitors and do not go visit others. Have others do your grocery shopping for you. If you have to leave the house, please cover your mouth with a mask or a scarf. This is for you to prevent spread of the virus to others; it does not protect you from others. Do you have dyspnea (shortness of breath/difficulty breathing)? ? What activities that you could previously do without difficulty are now causing you to be out of breath? ? Has this gotten worse over the last one, two, or three days? ? Are you breathing harder or faster than usual when sitting still? ? Can you no longer do your usual household activities due to shortness of breath? ? Does walking cause you to feel dizzy? If yes to any of the above, you are having shortness of breath. ?Mild does not interfere with daily activities (eg, mild shortness of breath with activities such as climbing one to two flights of stairs or walking briskly). ?Moderate creates limitations to activities of daily living (eg, shortness of breath that limits the ability to walk up one flight of stairs without needing to rest, or interferes with meal preparation and light housekeeping tasks). ?Severe shortness of breath at rest, renders the patient unable to speak in complete sentences, andinterferes with basic activities such as toileting and dressing. Learning About Hypoxemia (low oxygen levels) What is hypoxemia? Hypoxemia means that you don't have enough oxygen in your blood. It's a result of diseases that affect your heart or lungs. These include heart failure, COPD, and pulmonary fibrosis (scarring of the lungs). Being at high altitudes can also lead to hypoxemia. What happens when you have hypoxemia? Oxygen gets into your blood through your lungs. Your blood carries the oxygen to all parts of your body. When you have too little oxygen in your blood, your body doesn't get enough of it. With too little oxygen, your heart and other parts of your body don't work very well. What are the symptoms? In addition to the symptoms of whatever is causing your hypoxemia, you may: Get tired quickly. Be short of breath when you are active. Feel like your heart is pounding or racing. Feel weak or dizzy. Become confused. How is hypoxemia treated? Your doctor will do tests to find out how much oxygen is in your blood. He or she will look for thecause of your hypoxemia and treat that problem. For example, if you have heart failure, you may need medicines that help your heart pump better. If your hypoxemia is not severe, your doctor may give you oxygen through a mask or nasal cannula (say JADERosendokirk ). A cannula is a thin tube with two openings that fit just inside your nose. If your hypoxemia is severe, you may have a breathing tube put into your windpipe. The breathing tube is attached to a machine that pushes air into your lungs. This machine is called a ventilator. If you have a long-term problem with hypoxemia, your doctor may recommend that you use oxygen regularly. Some people need it all the time. Others need it from time to time throughout the day or overnight. Your doctor will tell you how much oxygen you need and how often to use it. Follow-up care is a paige part of your treatment and safety. Be sure to make and go to all appointments, and call your doctor if you are having problems. It's also a good idea to know your test resultsand keep a list of the medicines you take. Where can you learn more? Log into your personal health record on [email or web address].DockPHP and enter M375 in the Education box to learn more about Learning About Hypoxemia. Current as of: April 26, 2019 Content Version: 12.3 0065-6722 [employer]. Care instructions adapted under license by your healthcare professional. If you have questions about a medical condition or this instruction, always ask your healthcare professional. [employer] disclaims any warranty or liability for your use of this information. [facility] COVID-19 Post-swabbing Instructions We will do our best to update you as soon as we receive your test results, but if we had to send your test to be run at the lab, you may see the results on Alorum or receive a call from [facility] before we are able to contact you. You should receive a call from our COVID-19 results provider as soon as possible. If you test POSITIVE for COVID-19: Isolate until: - it has been 10 days since you developed symptoms AND - you have been without a fever (100.4 F) for at least 24 hours without the use of fever reducing medication AND - your symptoms are improving Isolation is when you test positive for COVID-19 and is meant to keep the infected person away fromall others, even in their own home. If you live with others, stay in a specific sick room or area and away from other people or animals, including pets. Use a separate bathroom, if available. Seek emergency medical care immediately if you develop worsening warning signs including: - trouble breathing - persistent pain or pressure in the chest - new confusion - inability to wake or stay awake - bluish lips or face It is not recommended by the CDC to have another COVID-19 test done in order to discontinue isolation or return to work/school. We can provide return to work and school documentation as needed. When Do I Self-Quarantine? You should quarantine if you have had a significant exposure which is defined as having been in close contact (as defined below) with someone that has a laboratory confirmed infection from COVID-19 or that person was diagnosed by a medical professional. This includes contact within 48 hours prior to when the COVID-19 positive person developed symptoms. - Quarantine is used to keep someone who might have been exposed to COVID-19 away from others. - Quarantine helps prevent spread of disease that can occur before a person knows they are sick or if they are infected with the virus without feeling symptoms. - People in quarantine should stay home, separate themselves from others, monitor their health, andfollow directions from their state or local health department. What counts as close contact? - You were within 6 feet of someone who has COVID-19 for at least 15 minutes - You provided care at home to someone who is sick with COVID-19 - You had direct physical contact with the person (touched, hugged, or kissed them) - You shared eating or drinking utensils - They sneezed, coughed, or somehow got respiratory droplets on you When and How Will I Get Results? Tests performed in the clinic will be available within 15-20 minutes from initiation of test. If your test was sent out to the lab for testing, it could take anywhere from 1-5 days after your specimen is collected. The provider/practice who placed the order for your test will notify you of your results. - If you have an active [employer] account, and your COVID-19 test is negative (not detected), then you will be notified through your [employer] account. You should call the urgent care if you have any further questions. - If your COVID-19 test is positive (detected), you will receive a phone call to discuss your results and answer any questions you might have at that time. Please make sure [facility] has your updated phone number so we can contact you. [facility] will notify the [facility] of any positive results to comply with state regulations. What Happens After I Get Tested if I Develop Worsening COVID-19 Symptoms? All patients should self-quarantine at home until they receive their test results. While self-quarantining, contact your PCP or return to the urgent care if you develop any of the following: - A fever of 103 degrees F (39.4 C) or higher - A fever that lasts more than 3 days without medication - A fever that returns after being gone for more than 24 hours - Chest pain or difficulty breathing - A worsening of current symptoms For work concerns, please contact your employer's HR department. How Do I Self-Quarantine? - Stay home until 14 days after last exposure and maintain social distance (at least 6 feet) from others at all times - Avoid contact with people at higher risk for severe illness from COVID-19 - Self-monitor for symptoms: - Check temperature twice a day - Watch for fever (100.4F or higher), cough, shortness of breath, or other CDC recognized symptoms of COVID-19 If I test positive, what about those with which I have had close contact (household members, partners, close friends, etc)? Anyone with close contact (as defined above) within 48 hours prior to when the COVID-19 positive person developed symptoms should self-quarantine. This includes during the 10 day quarantine period. So, if your family is unable to isolate from you - they must wait your 10 days, plus additional quarantine as described below. If they develop symptoms - they should quarantine for the entire 14 days from their exposure to you. A negative test, while having symptoms, does not change this recommendation. If they do not develop symptoms and are no longer exposed to you: Without testing, quarantine can end after 10 days from the last exposure to a known positive COVID person. If they test negative, and their test was done at least 5 days from their last known COVID exposure, their quarantine can end after 7 days. They must continue to monitor symptoms daily for all 14 days. However, if at any time during those 14 days they develop symptoms you must self-isolate and follow up for further evaluation. What Do I Do If I am Sick? Stay Home: If you are sick, stay home from work, school, public places, and social gatherings Social Distance: maintain 6 feet of distance from other people. Monitor Your Symptoms: If you develop fever, shortness of breath, confusion, or any respiratory symptoms, please notify your doctor immediately Cover Your Cough: Cough and sneeze into your shirt sleeve or inner elbow. Do not cough into your hands or into the air. If available, cough into a tissue and throw it into a trash can. Wash Your Hands: Wash hands often with soap and warm water and/or alcohol based hand hunter, scrubbing your hands for at least 20 seconds. Wash your hands after sneezing or coughing, after going to the bathroom, and before eating or drinking. Wear a Mask: Wear a face mask when around others. Always wear a face mask (if able) if you have to leave your home Don't Touch: avoid touching your eyes, nose, and mouth Don't Share: avoid sharing items with others as they can spread infection Call First: If you do need to seek urgent medical care, call the facility first to let them know you are on your way Other COVID Questions? CDC - https://www.cdc.gov/coronavirus/2019-ncov/index.html - https://www.cdc.gov/coronavirus/2019-ncov/bk-txc-mcy-sick/quarantine.html [facility] - Website: https://coronavirus.[place].gov/wps/portal/gov/covid-19/home - Hotline: 442-7-UWC-ODH (934-775-7850) [facility]: https://blog.iGo[employer] s.[employer].l..[employer]/series/exlew-35-aviheuuibem-toolkit/ documented in this encounter* Salma Guthrie DO - 01/16/2021 8:19 AM EST Assessment/Plan Problem List Items Addressed This Visit Other Encounter for screening and preventative care - Primary Discussed improvements in lifestyle including diet and exercise. Increase consumption of whole foods, avoiding processed foods. Avoid foods high in fat, salt, and sugar. Consume at least 5-6 servings of fruits and vegetables daily. Continued work on healthy diet and consistent aerobic exercise (2.5-3 hours minimum weekly) were suggested and discussed. The patient was instructed on obtaining an ideal body weight. The patient will call with questions, concerns and for changing symptoms. Subjective Jay Torres is a 30 y.o. female who presents with Chief Complaint Patient presents with Annual Exam HPI Physical This is a 30 yo F without significant PMHx who presents today for physical. She does not have concerns today. She follows with Dr. Edwards for her obstetric care. 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 Lives at home with . Good sleep, good mood. UTD vaccinations. Family history unchanged; hx of lymphoma in dad. Exercises routinely, good diet. Medications include vitamin Review of Systems Constitutional: No fatigue, fever HENT: No congestion, sinus pressure Eyes: No vision change Respiratory: No cough or SOB Cardiovascular: No CP, palpitations or leg swelling Gastrointestinal: No abdominal pain, constipation, diarrhea or nausea Musculoskeletal: No arthralgias or joint swelling Skin: No rash Neurological: No headaches Psychiatric/Behavioral: No sleep disturbance. The patient is not anxious or depressed. Objective: PACU Vitals 01/16/21 0814 BP: 124/79 Pulse: 90 Temp: 97 F (36.1 C) SpO2: 99% Body mass index is 28.34 kg/m . Physical Exam Constitutional: Patient is alert, NAD. Head: Normocephalic and atraumatic. Eyes: Normal eye tracking Neck: Normal range of motion. Neck supple. Cardiovascular: RRR, no murmurs, gallops or rubs. Pulmonary/Chest: Normal effort and breath sounds. Abdominal: non-tender, non-distended Musculoskeletal: Normal range of motion. Skin: Skin is warm and dry. Psychiatric: Normal mood and affect. Hearing and vision grossly normal. History reviewed. No pertinent past medical history. Past Surgical History: Procedure Laterality Date WISDOM TOOTH EXTRACTION No current outpatient medications on file. No current facility-administered medications for this visit. Social History Socioeconomic History Marital status: Spouse name: Not on file Number of children: Not on file Years of education: Not on file Highest education level: Not on file Occupational History Occupation: PA Social Needs Financial resource strain: Not hard at all Food insecurity Worry: Never true Inability: Never true Transportation needs Medical: No Non-medical: No Tobacco Use Smoking status: Never Smoker Smokeless tobacco: Never Used Substance and Sexual Activity Alcohol use: Yes Alcohol/week: 2.0 standard drinks Types: 2 Glasses of wine per week Drug use: Never Sexual activity: Yes Partners: Male Lifestyle Physical activity Days per week: Not on file Minutes per session: Not on file Stress: Not on file Relationships Social connections Talks on phone: Not on file Gets together: Not on file Attends buddhism service: Not on file Active member of club or organization: Not on file Attends meetings of clubs or organizations: Not on file Relationship status: Not on file Other Topics Concern Not on file Social History Narrative Not on file Family History Problem Relation Age of Onset Non-Hodgkin's Lymphoma Father 56 No Known Problems Mother The following portions of the patient's history were reviewed and updated as appropriate: allergies, current medications, past family history, past medical history, past social history, past surgicalhistory and problem list. For any new medications prescribed today, patient was educated about indications for the medication, how to take the medication and potential side effects of the medications. SALMA GUTHRIE DO PGY3 Family Medicine [facility] * Wero Spicer MA - 01/16/2021 8:15 AM EST Patient scheduled for upcoming appointment. Prechart reviewed for Health Maintenance. Patient has the following outstanding care gap(s) that need addressed this visit: Health Maintenance Due Topic Date Due Depression Screening (PHQ9) 2003 Complete at Visit Wellness Visit 12/23/2019 COVID-19 Vaccine (2 of 2 - Moderna series) 12/14/2020 Some of these care gaps have an order pending for provider upon her follow up visit with provider. Patient will need instructed regarding vaccines, labs, screenings and exams upon encounter. (Note: Traditional MEDICARE does NOT cover Zoster Shingrix, Tetanus, or Tdap under medical benefit,Medicare patients can get these vaccines at their local Pharmacy. For these patients inform them toget these vaccines at their local pharmacy. Patient will need to call the office so they can updatetheir vaccine records.) Wero Rush MA 01/13/21 1:32 PM documented in this encounter* Carla Mercer, DO - 07/07/2019 10:25 AM EDT [facility] [address] [id number] Jay Torres is a 29 y.o. female here today for evaluation of Diarrhea HPI: Jay Torres is a 29 y.o. female being evaluated for diarrhea. Jay reports that her symptoms havebeen ongoing now for about 3 years. She describes a sensation after she eats typically of some urgency and increasing gas. She states that she was then use the bathroom and it is typically diarrhea in nature. She denies any overt bleeding. Jay reports that she can also randomly have the same typeof sensation with regards to urgency and diarrhea. She denies any constipation. She denies any anorexia or unintentional weight loss. There is no nausea or vomiting. There are no extraintestinal manifestations of inflammatory bowel disease reported. Jay does have a family history of ulcerative colitis in distant relatives. She does report that over the last 3 years she is also been having some changes with regards to lower extremity skin changes that are raised and red. She denies any itchingor pain with this. There is no type of excoriation or pustular type of rash. She denies trying any type of mlnh-nxe-gslkugo medicines for her symptoms at this point. She does state that she is kept afood diary in the past but really has not been able to identify any particular triggers. Otherwise denies heartburn or dysphagia. She denies smoking. She does admit to alcohol on occasion. History reviewed. No pertinent past medical history. Past Surgical History: Procedure Laterality Date WISDOM TOOTH EXTRACTION Allergies Allergen Reactions Penicillins Rash Prior to Admission medications Medication Sig Start Date End Date Taking? 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: PA Social Needs Financial resource strain: Not on file Food insecurity: Worry: Not on file Inability: Not on file Transportation needs: Medical: Not on file Non-medical: Not on file Tobacco Use Smoking status: Never Smoker Smokeless tobacco: Never Used Substance and Sexual Activity Alcohol use: Yes Alcohol/week: 2.0 standard drinks Types: 2 Glasses of wine per week Drug use: Never Sexual activity: Yes Partners: Male Lifestyle Physical activity: Days per week: Not on file Minutes per session: Not on file Stress: Not on file Relationships Social connections: Talks on phone: Not on file Gets together: Not on file Attends buddhism service: Not on file Active member of club or organization: Not on file Attends meetings of clubs or organizations: Not on file Relationship status: Not on file Other Topics Concern Not on file Social History Narrative Not on file Family History Problem Relation Age of Onset Non-Hodgkin's Lymphoma Father 56 Review of Systems Constitutional: Negative HENT: Negative Eyes: Negative Respiratory: Negative Cardiovascular: Negative Gastrointestinal: Per HPI. All other systems reviewed and are negative. Physical Exam BP 128/85 Pulse 83 Wt 70.1 kg (154 lb 9.6 oz) BMI 28.28 kg/m 70.1 kg (154 lb 9.6 oz) Body mass index is 28.28 kg/m . General Appearance: Alert, cooperative, no distress Head: Normocephalic, without obvious abnormality, atraumatic Eyes: PERRL, conjunctiva/corneas clear, EOM's intact Throat: Lips, mucosa, and tongue normal; teeth and gums normal Neck: Supple, symmetrical, trachea midline, no adenopathy; thyroid: no enlargement/tenderness/nodules; no carotid bruit or JVD Lungs: Clear to auscultation bilaterally, respirations unlabored Cardiovascular: Regular rate and rhythm, S1 and S2 normal, no murmur, rub or gallop; pulses 2+ and symmetric all extremities Abdomen: Soft, non-tender, bowel sounds active all four quadrants, no masses, no organomegaly Extremities: No clubbing, cyanosis, or edema Skin: Skin color, texture, turgor normal, no rashes or lesions Neurologic: CNII-XII intact; normal strength. No focal deficits Labs: No results for input(s): WBC, HGB, HCT, PLT in the last 72 hours. No results for input(s): NA, K, CL, BICARB, BUN, CREATININE, GLUCOSE, MG, PHOS, CALCIUM in the last72 hours. No results for input(s): ALT, AST, ALKPHOS, BILITOT, LIPASE in the last 72 hours. No results for input(s): INR, PROTIME in the last 72 hours. No results for input(s): AFP in the last 72 hours. Imaging: No results found. Assessment and Plan: Problem List Items Addressed This Visit Digestive Irritable bowel syndrome with diarrhea - Primary Relevant Orders Calprotectin CRP, Inflammation TSH Tissue Transglutaminase, IgG CBC Comprehensive Metabolic Panel We did discuss that she does meet all criteria for IBS with diarrhea. We will confirm and rule out any organic etiology We also discussed that once her work-up is complete further recommendation will be made with regards to whether directive therapy is indicated versus what she would like to do from a therapy standpoint for functional disease. We also discussed that at this time I do not think that colonoscopy is necessary but ultimately either EGD or colonoscopy may be part of the work-up. A total of 35 minutes were spent [id number] with the patient during this encounter and over half of that time was spent on counseling and coordination of care. We discussed in depth the importance of primary prevention of above diagnosis. I also educated the patient about lifestyle modifications. Thank you very much for allowing me to participate in your patient's care and if you have any further questions please do not hesitate to call. Sincerely; Carla Mercer DO CC: Elisha Ballard, GABY This dictation has been transcribed via [employer] and has not been reviewed and may very well have errors secondary to the dictation system. documented in this encounter Assessments Diagnosis Diarrhea, unspecified type- Primary Preventative health care Routine general medical examination at a health care facility Diagnosis Irritable bowel syndrome with diarrhea Irritable bowel syndrome Diagnosis Immunization due Diagnosis Anosmia- Primary Disturbances of sensation of smell and taste Contact with and (suspected) exposure to other viral communicable diseases Diagnosis Encounter for screening and preventative care- Primary Diagnosis Irritable bowel syndrome with diarrhea- Primary Irritable bowel syndrome Diarrhea, unspecified type Diagnosis Needlestick injury of finger, initial encounter- Primary Advance Directives No Advanced Directives Records FoundDocuments on File Type Date Recorded Patient Staff Counselor Expl anation Advance Directives and Livin g Will 07/11/2019 6:18 PM Documents on File Type Date Recorded Patient Staff Counselor Expl anation Advance Directives and Living Will Documents on File Type Date Recorded Patient Staff Counselor Expl anation Advance Directives and Livin g Will 07/11/2019 6:18 PM Documents on File Type Date Recorded Patient Staff Counselor Expl anation Advance Directives and Livin g Will 08/12/2021 8:56 AM Latest Code Status on File Code Status Date Activated Date Inactivated Comments Full Code 08/13/2021 4:32 AM 08/15/2021 6:22 PM Full Code 08/12/2021 9:22 AM 08/13/2021 3:46 AM Full Code 08/12/2021 8:16 AM 08/12/2021 9:22 AM Full Code 08/11/2021 12:41 AM 08/11/2021 4:20 AM Summary Purpose Family History No Family History Records FoundNo Family History Records FoundNo Family History Records FoundNo Family History Records FoundNo Family History Records Found Discharge Instructions * Attachments The following attachments cannot be sent through Care Everywhere. * Exposure: Blood and Body Fluids ([place]is[place]) * [place] ED BODY FLUID EXPOSURE documented in this encounter Additional Source Comments Reason for Visit (unrecogniz ed section and content) Reason Comments ED Follow-up Reason Comments Irritable Bowel Syndrome Diarrhea Reason Comments Injections hep a Reason Comments Covid-19 Screening x4days, lost of tast e and smell, cough, congestion Reason Comments Annual Exam Reason Comments Diarrhea Status Reason Specialty Diagnoses / Procedures Referred By Contact Referred To Contact Closed Specialty Services Required/Patien t's Best Interest Gastroenterology Diagnoses Diarrhea, unspecified type Elisha Ballard, [facility] [address] [place] [address] Carla Mercer, DO [address] [place] [address] Reason Comments Body Fluid Exposure Status Reason Specialty Diagnoses / Procedures Referred By Contact Referred To Contact Pending Review Reason Comments Rupture of Membranes Specialty Diagnoses / Procedures Referred By Paolo ross Referred To Contact Diagnoses Amniotic fluid leaking Referral ID Status Reason Start Date Expiration Date Visits Re quested Visits Authorized [id number] 1 1 Reason Comments Annual Exam Had daughter 8 month s ago had rectal bleeding right after and went away but is now back on occasion Assessment & Plan Note - Elisha Ballard CNP - 12/23/2018 1:58 PM ESTAssessment & Plan Note - Elisha Ballard CNP - 12/23/2018 1:29 PM EST Miscellaneous Notes (unrecog nized section and content) Associated Problem(s): Diarrhea Diarrhea is intermittent and no consistent Food diary did not show any patterns Medications discussed but patient would rather see GI first GI referral made Patient will call with questions or concerns. Patient verbalized understanding. Associated Problem(s): Preventative health care Continue with healthy lifestyle, nutrition and exercise. Self checks monthly for health maintainence and follow up if abnormality Call with questions or concerns. Patient verbalized understanding. in this encounter Associated Problem(s): Encounter for screening and preventative care Discussed improvements in lifestyle including diet and exercise. Increase consumption of whole foods, avoiding processed foods. Avoid foods high in fat, salt, and sugar. Consume at least 5-6 servings of fruits and vegetables daily. Continued work on healthy diet and consistent aerobic exercise (2.5-3 hours minimum weekly) were suggested and discussed. The patient was instructed on obtaining an ideal body weight. The patient will call with questions, concerns and for changing symptoms. documented in this encounter INFORMATION SOURCE (unrecogn ized section and content) DATE CREATED AUTHOR AUTHOR'S ORGANIZ ATION 10/25/2020 [facility] DATE CREATED AUTHOR AUTHOR'S ORGANIZ ATION 08/18/2021 [facility] DATE CREATED AUTHOR AUTHOR'S ORGANIZ ATION 04/21/2022 [facility] DATE CREATED AUTHOR AUTHOR'S ORGANIZ ATION 07/28/2022 [facility] Abdirizak Han, DO - 07/11/2019 6:02 PM EDTFawn Eddy RN - 07/11/2019 5:45 PM EDT ED Notes (unrecognized secti on and content) PCP: Elisha Ballard, [employer] Chief Complaint Patient presents with Body Fluid Exposure HPI: 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 She was wearing gloves the suture needle penetrated her left thumb on the pad. She did have some bleeding. She has no sense of pain the needle did not break. She reported this to the nurse Marisol. I evaluated her the patient's up-to-date on her tetanus shot on the 10-year she has had her hepatitis B vaccine. Patient denies having HIV REVIEW OF SYSTEMS: Review of Systems Skin: Positive for wound. All other systems reviewed and are negative. All systems reviewed negative except as mentioned above. Past Medical History: History reviewed. No pertinent past medical history. Past medical history reviewed. Past Surgical History: Past Surgical History: Procedure Laterality Date WISDOM TOOTH EXTRACTION Past surgical history reviewed. Family History: Family History Problem Relation Age of Onset Non-Hodgkin's Lymphoma Father 56 Family history reviewed. 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 Social Needs Financial resource strain: Not on file Food insecurity: Worry: Not on file Inability: Not on file Transportation needs: Medical: Not on file Non-medical: Not on file Tobacco Use Smoking status: Never Smoker Smokeless tobacco: Never Used Substance and Sexual Activity Alcohol use: Yes Alcohol/week: 2.0 standard drinks Types: 2 Glasses of wine per week Drug use: Never Sexual activity: Yes Partners: Male Lifestyle Physical activity: Days per week: Not on file Minutes per session: Not on file Stress: Not on file Relationships Social connections: Talks on phone: Not on file Gets together: Not on file Attends buddhism service: Not on file Active member of club or organization: Not on file Attends meetings of clubs or organizations: Not on file Relationship status: Not on file Other Topics Concern Not on file Social History Narrative Not on file Social history reviewed. Allergies: Allergies Allergen Reactions Penicillins Rash Medications: Jay Torres Home Medication Instructions Prior to Surgery [id number] Printed on:07/11/19 2742 Medication Information Take last dose on Take the morning of surgery Comment(s) drospirenone-ethinyl estradiol (OCELLA) 3-0.03 mg per tablet PHYSICAL EXAMINATION: Vital Signs There were no vitals taken for this visit. Physical Exam Vitals signs and nursing note reviewed. Constitutional: Appearance: Normal appearance. HENT: Head: Normocephalic. Nose: Nose normal. Eyes: Pupils: Pupils are equal, round, and reactive to light. Neck: Musculoskeletal: Normal range of motion. Pulmonary: Effort: No respiratory distress. Musculoskeletal: Normal range of motion. Comments: Right upper extremity reveals a new puncture wound to the pad of her thumb. There is no active bleeding. No foreign body. Full range of motion of her digit Skin: General: Skin is warm. Capillary Refill: Capillary refill takes less than 2 seconds. Neurological: General: No focal deficit present. Mental Status: She is alert and oriented to person, place, and time. Psychiatric: Mood and Affect: Mood normal. Behavior: Behavior normal. Thought Content: Thought content normal. Judgment: Judgment normal. Vital Signs During ED Visit (as charted by nursing) No data found. 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 Patient's wound was cleansed tetanus shot is noted to be up-to-date will obtain a stat HIV on the patient in the event that is positive and we will be counseled about postexposure prophylaxis for HIV. She does not meet criteria for HBIG. She understands there is no current treatment for hepatitis C. Through my history, physical exam and diagnostic evaluation, I determined that there is LOW risk for impending emergency conditions thus, I consider the discharge disposition reasonable. There is a very small possibility that any of these conditions (or others) could potentialy be in the very early stages and/or could develop in th near future, but at this point, I consider discharge a reasonable course of action I provided verbal discharge instructions regarding her emergency department diagnosis. Prognosis, expected clinical course, and return precautions were reviewed. I answered all questions and re-iterated the importance of returning to the emergency department immediately for any new or worsening symptoms. Patient expressed understanding of the instructions and reported that all questions had been answered. IMPRESSION: 1. Needlestick injury of finger, initial encounter PROCEDURES (if any, during ED visit): Procedures DIAGNOSTICS: Laboratory (if any, during ED visit): Labs Reviewed - No data to display RADIOGRAPHIC IMAGING (if any, during ED visit): No orders to display MEDICATIONS ORDERED/GIVEN (if any, during ED visit): Medications - No data to display Abdirizak Han DO, FACEP Abdirizak Han DO 07/11/19 1806 Pt arrives to ED with s/p needle stick to left thumb while suturing a laceration approximately 20 minutes ago. Pt has cleaned and dressed puncture stick. Exposure papers provided to pt. documented in this encounter Scheduled Active and Recently Administ ered Medications (unrecognized section and content) Continuous Medication Order 08/13/2021 08/14/2021 08/15/2021 lactated Ringers infusion 125 mL/hr, Intravenous, Continuous, Starting on 08/13/21 at 0530, L&D Post-Delivery, Start when oxyTOCIN (PITOCIN) drip is discontinued. Discontinue after 24 hours if patient is afebrile and tolerating orals. 0530 (Due)0846 (New Bag - Provider: Lamin Baeza RN) oxytocin in lactated ringers (PITOCIN) 20 unit/1,000 mL infusion () Intravenous, at 124.8 mL/hr, Continuous, Starting on 08/13/21 at 0530, For 24 hours, L&D Post-Delivery, Discontinue infusion after 3.5 hours AND when bleeding scant and fundus firm. Then begin LR infusion at 125 ml/hr CATEGORY B HAZARDOUS DRUG use safe handling precautions. Use reference link to view PPE guidelines. Safe handling precautions only required when in the third trimester. EMERGENCY Haz Drug use professional judgement when deviating from standard handling precautions., Initial Rate (asad-units/min): 41.6 asad-units/min 0515 (New Bag - Provider: Elisha Miranda RN) PRN Medication Order 08/13/2021 08/14/2021 08/15/2021 acetaminophen (TYLENOL) tablet 650 mg 650 mg, Oral, Every 4 hours PRN, mild pain, Starting on 08/13/21 at 0432, 0936 (Given - Provider: Yadira Varma RN)1335 (Given - Provider: Yadira Varma, MARIBELL)1741 (Given - Provider: Yadira Varma RN)2208 (Given - Provider: Susan Ernst, MARIBELL) 0542 (Given - Provider: Susan Ernst, MARIBELL)1029 (Given - Provider: Ritu Wiggins, MARIBELL) aluminum-magnesium hydroxide-simethicone (MAALOX PLUS) 200-200-20 mg/5 mL suspension 30 mL 30 mL, Oral, Every 4 hours PRN, indigestion, Starting on 08/13/21 at 0432, bisacodyL (DULCOLAX) suppository 10 mg 10 mg, Rectal, Daily PRN, constipation, Starting on 08/13/21 at 0432, , Use oral medication first for constipation. Use rectal suppository, if ordered, for constipation if oral route not tolerated. diphenhydrAMINE (BENADRYL) injection 25 mg(Linked Group 1) 25 mg, Intravenous, Every 6 hours PRN, itching, Starting on 08/13/21 at 0432, , Use oral route first, if tolerated. For IV administration, give at a rate less than or equal to 25 mg/min diphenhydrAMINE (BENADRYL) tablet 25 mg(Linked Group 1) 25 mg, Oral, Every 6 hours PRN, itching, Starting on 08/13/21 at 0432, , Use oral route first, if tolerated. diptheria, tetanus toxoid, acellular pertussis (ADACEL/Tdap) injection 0.5 mL 0.5 mL, Intramuscular, Prior To Discharge, Based on vaccine assessment, Starting on 08/13/21 at 0432, For 1 dose, , If not previously vaccinated for pertussis. Complete Vaccine Assessments. If indicated, administer prior to discharge. Provide CDC vaccine information sheet(s) (VIS) for patient for vaccines administered. docusate sodium (COLACE) capsule 100 mg 100 mg, Oral, 2 times daily PRN, constipation, Starting on 08/13/21 at 0432, , Use oral medication first for constipation. Use rectal suppository, if ordered, for constipation if oral route not tolerated. DO NOT CRUSH OR CHEW. 0936 (Given - Provider: Yadira Varma RN)2041 (Given - Provider: Susan Ernst, MARIBELL) 0838 (Given - Provider: Ritu Wiggins, MARIBELL) ibuprofen (ADVIL,MOTRIN) tablet 600 mg 600 mg, Oral, Every 6 hours PRN, mild pain, as needed, Starting on 08/14/21 at 1500, For 2 days, Give with Food Do Not Crush or Chew if administering orally due to bitter taste. May be crushed if given via tube. 1508 (Given - Provider: Yadira Varma RN)2041 (Given - Provider: Susan Ernst RN) 0256 (Given - Provider: Susan Ernst, MARIBELL)0838 (Given - Provider: Ritu Wiggins, MARIBELL)1546 (Given - Provider: Ritu Wiggins, MARIBELL) measles, mumps and rubella vaccine (MMR) 1,000-12,500 TCID50/0.5 mL injection 0.5 mL 0.5 mL, Subcutaneous, Prior To Discharge, administer vaccine prior to discharge, Based on vaccine assessment, Starting on 08/13/21 at 0432, For 1 dose, , If indicated and not previously vaccinated. Complete Vaccine Assessments. If indicated, administer prior to discharge. Provide [facility] vaccine information sheet(s) (VIS) for patient for vaccines administered. naloxone (NARCAN) injection 0.1 mg(Linked Group 2) 0.1 mg, Intravenous, As needed, opioid reversal, For respiratory rate less than or equal to 8 per minute., Starting on 08/13/21 at 0432, , Mix nalOXone (NARCAN) 0.4 mg (1ml) with 9 mL of Normal Saline to total 10 mL. Administer 0.1 mg (2.5ml) IV Push every 2 minutes until respiratory rate is 10 or greater. naloxone (NARCAN) injection 0.4 mg(Linked Group 2) 0.4 mg, Intravenous, As needed, opioid reversal, patient is pulseless, breathless, and unresponsive, Starting on 08/13/21 at 0432, , Call a code first, then administer naloxone dose undiluted IV Push over 30 seconds. ondansetron (ZOFRAN) injection 4 mg(Linked Group 3) 4 mg, Intravenous, Every 6 hours PRN, nausea, vomiting, Starting on 08/13/21 at 0432, , Use oral route first, if tolerated. ondansetron (ZOFRAN-ODT) disintegrating tablet 4 mg(Linked Group 3) 4 mg, Oral, Every 6 hours PRN, nausea, vomiting, Starting on 08/13/21 at 0432, , Use oral route first, if tolerated. Formulation requires tablet remain in sealed package until immediately prior to dose being administered. oxyCODONE (ROXICODONE) immediate release tablet 5-10 mg 5-10 mg, Oral, Every 4 hours PRN, moderate to severe pain, Starting on 08/13/21 at 0432, , [] Initiate with 5 mg oral every 4 hours prn moderate to severe pain. [] For unrelieved pain, may repeat 5 mg oral dose within 60 minutes of initial dose. [] If pain is RELIEVED after repeat dose, change to 10 mg oral every 4 hours prn moderate to severe pain. [] If pain is UNrelieved after repeat dose, or patient requires dose reduction, call physician. rho(d) immune globulin (RHOPHYLAC) injection 300 mcg(Linked Group 4) 300 mcg, Intramuscular, Once as needed, IF patient is Rh Negative - administer if indicated (per lab), Starting on 08/13/21 at 0432, For 1 dose, , Use IV route, if available. rho(d) immune globulin (RHOPHYLAC) injection 300 mcg(Linked Group 4) 300 mcg, Intravenous, Once as needed, IF patient is Rh Negative - administer if indicated (per lab), Starting on 08/13/21 at 0432, For 1 dose, , Use IV route, if available. Do not give with other IV medications. simethicone (MYLICON) chewable tablet 80 mg 80 mg, Oral, After meals as needed, flatulence, Starting on 08/13/21 at 0432, 2041 (Given - Provider: Susan Ernst RN) sodium chloride 0.9% (NS) 0-150 mL/hr, Intravenous, As needed, To flush line after IV infusions when no maintenance IV ordered or a compatibility issue. Infuse 20ml at the same rate as the secondary infusion, Starting on 08/13/21 at 0432, L&D Post-Delivery, Run as Primary IV. NOT intended for KVO. sterile water irrigation solution (CANCELED) As needed, Starting on 08/13/21 at 0105, Intra-Procedure 0105 (Given - Provider: Willie Nash Jr., MD) varicella virus vacc live (PF) (VARIVAX) injection 0.5 mL 0.5 mL, Subcutaneous, Prior To Discharge, administer vaccine prior to discharge, Based on vaccine assessment, Starting on 08/13/21 at 0432, For 1 dose, , If not previously vaccinated. Complete Vaccine Assessments. If indicated, administer prior to discharge. Provide CDC vaccine information sheet(s) (VIS) for patient for vaccines administered. zolpidem (AMBIEN) tablet 5 mg 5 mg, Oral, Nightly PRN, sleep, Starting on 08/13/21 at 0432, , Do not substitute. Linked Groups Order Group 1: diphenhydrAMINE (BENADRYL) tablet 25 mgJump to med 25 mg, Oral, Every 6 hours PRN, itching, Starting on 08/13/21 at 0432,
Use oral route first, if tolerated.
Or diphenhydrAMINE (BENADRYL) injection 25 mgJump to med 25 mg, Intravenous, Every 6 hours PRN, itching, Starting on 08/13/21 at 0432,
Use oral route first, if tolerated. For IV administration, give at a rate less than or equal to 25 mg/min
Group 2: naloxone (NARCAN) injection 0.1 mgJump to med 0.1 mg, Intravenous, As needed, opioid reversal, For respiratory rate less than or equal to 8 per minute., Starting on 08/13/21 at 0432,
Mix nalOXone (NARCAN) 0.4 mg (1ml) with 9 mL of Normal Saline to total 10 mL. Administer 0.1 mg (2.5ml) IV Push every 2 minutes until respiratory rate is 10 or greater.
And Notify physician (CANCELED) STAT, Until discontinued, Starting on 08/13/21 at 0433, Until Specified
Respiratory rate less than: 8
For respiratory rate less than or equal to 8, notify physician and/or appropriate staff for additional orders., And naloxone (NARCAN) injection 0.4 mgJump to med 0.4 mg, Intravenous, As needed, opioid reversal, patient is pulseless, breathless, and unresponsive, Starting on 08/13/21 at 0432,
Call a code first, then administer naloxone dose undiluted IV Push over 30 seconds.
Group 3: ondansetron (ZOFRAN-ODT) disintegrating tablet 4 mgJump to med 4 mg, Oral, Every 6 hours PRN, nausea, vomiting, Starting on 08/13/21 at 0432,
Use oral route first, if tolerated. Formulation requires tablet remain in sealed package until immediately prior to dose being administered.
Or ondansetron (ZOFRAN) injection 4 mgJump to med 4 mg, Intravenous, Every 6 hours PRN, nausea, vomiting, Starting on 08/13/21 at 0432,
Use oral route first, if tolerated.
Group 4: rho(d) immune globulin (RHOPHYLAC) injection 300 mcgJump to med 300 mcg, Intramuscular, Once as needed, IF patient is Rh Negative - administer if indicated (per lab), Starting on 08/13/21 at 0432, For 1 dose,
Use IV route, if available.
Or rho(d) immune globulin (RHOPHYLAC) injection 300 mcgJump to med 300 mcg, Intravenous, Once as needed, IF patient is Rh Negative - administer if indicated (per lab), Starting on 08/13/21 at 0432, For 1 dose,
Use IV route, if available. Do not give with other IV medications.
Care Teams (unrecognized sec tion and content) Cook Chili Relationship Specialty Start Date End Date Edu Olivares MD [address] [place] [address] Dr [address]ta [address] [place] [id number] PCP - PATRICIO Attributed Provider - [facility] [employer] 09/18/21 11/17/50 Lamin Freedman MD [address] [place] [address] Dr. [address]ta [address] [place] [id number] PCP - General Family Medicine 04/18/22 Cook Chili Relationship Specialty Start Date End Date Edu Olivares MD [address] [place] [address] Dr [address]ta [address] [place] [id number] PCP - PATRICIO Attributed Provider - [employer] 09/18/21 11/17/50 Lamin Freedman MD [address] [place] [address] Dr. Peralta [address] [place] [id number] PCP - General Family Medicine 04/18/22 FOR RECORDS PERTAINING TO PATIENTS WHO ARE OR HAVE BEEN ENROLLED IN A CHEMICAL DEPENDENCY/SUBSTANCEABUSE PROGRAM, SOME INFORMATION MAY BE OMITTED. This clinical summary was aggregated from multiple sources. Caution should be exercised in using it in the provision of clinical care. This summary normalizes information from multiple sources, and as a consequence, information in this document may materially change the coding, format and clinical context of patient data. In addition, data may be omitted in some cases. CLINICAL DECISIONS SHOULD BE BASED ON THE PRIMARY CLINICAL RECORDS. [facility] provides no warranty or guarantee of the accuracy or completeness of information in this document.
--- NOTE | 2024-01-03 23:54 | EX.ED.DYSGE1 ---
HPI History of Present Illness Chief Complaint: Abd Pain Informant: patient Onset/Context/Timing Onset: Days Narrative Narrative: Patient presents with lower abdominal pain for the past 3 days. She states on the she had pain across her lower abdomen. She did have 1 episode of diarrhea that day. Yesterday she thought she felt better but again this evening developed recurrent sharp pain worse in the right lower quadrant. She has no back pain. No urinary symptoms. No fever or chills. She had a normal bowel movement at 5 PM tonight. PFSH PFS Medical History Contraceptive management Allergy/AdvReac Type Severity Reaction Status Date / Time Penicillins AdvReac Mild Rash Verified 01/03/24 23:18 Family History Father Non-Hodgkin lymphoma of extranodal and solid organ sites Grandmother Breast cancer Grandfather FH: prostate cancer Surgical History History of delivery Social History Smoking Status: Never smoker alcohol intake: never substance use type: does not use what type of physical activity do you participate in: bicycling and yoga frequency: 3-4 times per week ROS ROS ED Constitutional Constitutional ED: Denies chills or fever(s) Eyes Eyes: Denies discharge from eye(s) ENT ENT ED: Denies discharge from eye(s), rhinorrhea or sore throat Cardiovascular Cardiovascular: Denies chest pain or palpitations Respiratory/Chest Respiratory/Chest: Denies cough or dyspnea Gastrointestinal Gastrointestinal: Reports abdominal pain and diarrhea; Denies nausea or vomiting Genitourinary Genitourinary ED: Denies dysuria or hematuria Musculoskeletal Musculoskeletal: Denies back pain or extremity pain Integumentary Denies Abrasions or rash Neurologic Neurologic: Denies headache(s) or weakness Psychiatric Psychiatric: Denies anxiety or depression Allergic/Immunologic Allergic/Immunologic ED: Denies lip swelling or urticaria EXAM Physical Exam Const Vital Signs: 01/03/24 23:16 Temperature 97.2 F L Temperature Source Temporal Pulse Rate 131 H Respiratory Rate 17 Blood Pressure 153/104 H Blood Pressure Mean 120 Pulse Ox 99 Oxygen Delivery Method Room Air Positive well nourished and well developed General Appearance ED: well developed HEENT Reports moist mucous membranes Eyes EOMs intact bilaterally Chest Wall inspection of chest normal and palpation of chest normal Resp normal respiratory effort and clear to auscultation bilaterally Cardio regular rate and regular rhythm GI GI Narrative: Abdomen soft with moderate tenderness in the right lower quadrant. No guarding or rebound. No palpable masses. Extremity normal to inspection Neuro oriented x3 and no sensory deficits noted Motor Exam: strength 5/5 throughout Psych mental status grossly normal Skin no rashes or lesions noted MDM MDM MDM Narrative Medical decision making narrative: IV line established. Labwork obtained to evaluate for leukocytosis, anemia, and electrolyte derangement. Urinalysis obtained to evaluate for infection/hematuria. IV fluids given. Patient given Zofran at this time for nausea. I will check her test prior to giving her Toradol as they are trying to conceive. History & Record Review Discussion w/independent historian: Patient Lab Data Attestation: I reviewed the patient's lab results. Labs: Laboratory Results - last 24 hr 01/03/24 23:39 WBC 15.5 H RBC 4.89 Hgb 14.0 Hct 42.7 MCV 87.3 MCH 28.6 MCHC 32.8 RDW Std Deviation 40.5 RDW Coeff of Jana 12.6 Plt Count 266 MPV 11.0 Immature Gran % (Auto) 0.300 Neut % (Auto) 77.4 H Lymph % (Auto) 15.[address] [place] % (Auto) 4.9 Eos % (Auto) 1.9 Baso % (Auto) 0.2 Absolute Neuts (auto) 12.0 H Absolute Lymphs (auto) 2.37 Nucleated RBC % 0 Sodium 141 Potassium 3.6 Chloride 110 H Carbon Dioxide 27.0 Anion Gap 4 L BUN 9 Creatinine 0.78 Estim Creat Clear Calc 98.85 Est GFR (MDRD) Af Amer 110 Est GFR (MDRD) Non-Af 91 BUN/Creatinine Ratio 11.6 Glucose 112 H Calcium 9.3 Serum , Qual NEGATIVE Urine Color Yellow Urine Clarity Clear Urine pH 7.0 Ur Specific [place] 1.010 Urine Protein Negative Urine Glucose (UA) Normal Urine Ketones Negative Urine Occult Blood Negative Urine Nitrite Negative Urine Bilirubin Negative Urine Urobilinogen Normal Ur Leukocyte Esterase Negative Urine RBC 0 SEEN Urine WBC 0 SEEN Ur Squamous Epith Cells 0 SEEN Urine Bacteria 0 SEEN Urine Mucus 0 SEEN Treatment and Re-Evaluation :: CBC was a white count of 15.5 with 77% neutrophils. Hemoglobin 14. Chemistry studies unremarkable. test is negative. Urinalysis reveals no hematuria and no evidence of infection. CT scan of the abdomen and pelvis with IV contrast is obtained. office machine technician and I both reviewed images and agree her findings are consistent with appendicitis. While awaiting final read I went ahead and paged Dr. Vilchis, on-call for surgery. Patient has an allergy to penicillin. She is given Cipro and Flagyl here. Discharge Plan Triage Chief Complaint: Abd Pain ED Provider: Jane Orta Dx/Rx/DC Orders Clinical Impression: Acute appendicitis Primary Care Provider: Giuliana Vargas Referrals: Giuliana Vargas, DO [Primary Care Provider] - Disposition Disposition: Acute Care Hospital [facility]
[2024-01-03 23:58] LABS: Internal QC Validated? YES +Cl - CLEAR BKGD; Pregnancy, Serum, hCG Quali. NEGATIVE Negative
[2024-01-04] VITALS (12 sets, daily range): BP systolic 95–128; BP diastolic 55–89; PULSE 84–110; RESP 14–18; TEMP 36.6–37.8; O2SAT 97–100; BMI 31.5
--- NOTE | 2024-01-04 | APP_PTH ---
PATHOLOGY RESULTS PATIENT: JAY LOU LOC: MS3 U#:[id number] AGE/SX: 33/F ROOM: [facility] RE01/04/[address]: Dr. Latrice Vilchis MD : 1990 BED: 1 DIS: 01/04/2024 SPEC #: [id number] RECD: 01/06/24 05:42 STATUS: KAREN JUSTIN #: [id number] EBENEZER: 01/04/24 00:[address]: Latrice Vilchis DEPT: SURGICAL PATHOLOGY RECD BY: Chase Myers ENTERED: 01/06/24 08:05 SP TYPE: APPENDIX OTHR DR: Giuliana Vargas DO Tissues: Appendix, NOS Procedures: Surgery Specimen Level III HEADER OPERATION: Laparoscopic appendectomy PRE-OP DIAGNOSIS: Acute appendicitis TISSUE SUBMITTED: Appendix MICROSCOPIC DIAGNOSIS Appendix, appendectomy: Acute purulent appendicitis and periappendicitis. LUIS:helen 01/07/2024 MICROSCOPIC DESCRIPTION Slides are reviewed. GROSS DESCRIPTION Received in fixative is one container labeled with the patient's name and designated appendix. The specimen consists of an L-shaped appendix measuring 8.5 cm in length and up to 2.2 cm in diameter. The attached periappendiceal adipose tissue measures up to 4.0 cm in width. The serosal surface shows extensive area of congestion and hemorrhage. The periappendiceal adipose tissue reveals congested and hemorrhagic cut surfaces. Bundle Clerk sections are submitted in seven cassettes. Cassette 1 contains the tip and most proximal portion. / LUIS:helen 01/06/2024 TC:2 CPT: 96674
[2024-01-04 00:04] LABS: Anion Gap 4 (5-15); BUN 9 mg/dL (7-18); BUN/Creat Ratio 11.6 RATIO (10-20); Calcium,Total 9.3 mg/dL (8.5-10.1); Chloride 110 mmol/L (98-107); Creatinine, Serum 0.78 mg/dL (0.55-1.02); EST Glomerular Filtration Rate 91 mL/min (>60); Est Glom Filt Rate - Afr Amer 110 mL/min (>60); Estimated Creatinine Clearance 98.85 ml/min; Glucose 112 mg/dL (74-106); Potassium 3.6 mmol/L (3.5-5.1); Sodium Level 141 mmol/L (136-145)
[2024-01-04] MEDS: 0.9% Normal Saline (1000mL) 1,000 ML 1000 ML IV (00:04)
[2024-01-04] MEDS: Ondansetron 4 MG/2 ML Vial IV (00:04)
--- NOTE | 2024-01-04 00:11 | CT_ITS ---
EXAM: CT Abdomen And Pelvis W/ Contrast Injection HISTORY: RLQ pain TECHNIQUE: Routine protocol CT abdomen pelvis. IV Contrast: IV 100mL Isovue-370 . Oral Contrast: without. Sagittal and coronal images were reconstructed. RADIATION DOSAGE (If Supplied By Facility): CTDIvol = ( 11.68 ) mGy, DLP = ( 660.47 ) mGycm Individualized dose optimization techniques were used for this CT. COMPARISON: None. LIMITATIONS: None. FINDINGS: LOWER CHEST: Lung bases are clear. LIVER: 3 cm cyst in the left lobe. GALLBLADDER/BILE DUCTS: Unremarkable. PANCREAS: Unremarkable. SPLEEN: Unremarkable. ADRENAL GLANDS: Unremarkable. KIDNEYS / URETERS: Unremarkable. BOWEL / MESENTERY: Marked wall thickening of the base of the cecum. Mild wall thickening of terminal ileum adjacent to the appendix. Adjacent enlarged lymph nodes in the mesentery. No bowel obstruction. APPENDIX: Dilated, 13 mm. Thickened wall. Irregular margins in the distal portion. Adjacent inflammatory changes with ill-defined collection surrounding the distal tip approximately 2.0 x 1.8 cm. PERITONEUM: No free air. Moderate amount of free fluid in the pelvis. VESSELS: Abdominal aorta is normal caliber. RETROPERITONEUM: Unremarkable. REPRODUCTIVE ORGANS: Unremarkable. BLADDER: Unremarkable. ABDOMINAL WALL: Unremarkable. BONES: No acute abnormality. Pars defect on the right at L5 without spondylolisthesis. OTHER: None. CT/Abdomen/Pelvis W IV Cont ONLY IMPRESSION: Acute appendicitis with periappendiceal collection likely contained microperforation. N.B. : The above Results were Read Back by Kristin Carmen MD to Jane Orta MD, and understanding confirmed on 01/04/2024 01:04:27 (ET). Electronically Signed: Kristin Carmen MD at 1:02 EST ,
[2024-01-04 00:17] LABS: Absolute Lymphocyte Count 2.37 X10^3/uL (0.83-4.51); Basophil# 0.03 X10^3/uL; Basophil% 0.2 % (0-1); Eosinophil# 0.29 X10^3/uL; Eosinophils% 1.9 % (0-5); Hematocrit 42.7 % (37-47); Lymphocyte # 2.37 X10^3/ul (0.83-4.51); Lymphocyte % 15.3 % (19-41); Mean Corp Hgb Conc 32.8 g/dL (32-36); Mean Corpuscular Hgb 28.6 pg (27.0-32.0); Mean Corpuscular Volume 87.3 fL (81-99); Monocyte# 0.76 X10^3/uL; Monocyte% 4.9 % (0-10); NRBC Flagged by Analyzer 0 % (0-5); Neutrophil # 11.98 X10^3/uL (2.7-7.7); Neutrophil % 77.4 % (47-70); Platelet Count 266 K/mm3 (150-450); RBC Distribution Width CV 12.6 % (11.6-14.6); RBC Distribution Width SD 40.5 fl (35.1-43.9); Red Blood Count 4.89 M/mm3 (4.2-5.4); White Blood Count 15.5 K/mm3 (4.4-11.0)
[2024-01-04] MEDS: Ketorolac 15 MG/ML Vial IV ×3 (00:44→12:56)
[2024-01-04] MEDS: metroNIDAZOLE 500 MG/100 ML BAG 100 MG IV (01:22)
--- NOTE | 2024-01-04 01:52 | HP.PCM.SX_ITS ---
HPI - General General Date of Service: 01/04/24 HPI Narrative AJY LOU, is a 33 F who presents to the ER due to right lower quadrant pain that started at 5 PM today. Patient also had lower abdominal pain on Saturday and a half of Saturday however that did not improve she was able to work normally on . Patient did have nausea denies any vomiting. Patient CT abdomen pelvis which was consistent with acute appendicitis with white blood count of 15.5. Patient was given Cipro/Flagyl IV in the ER. Patient's just had laparoscopic appendectomy about 3 weeks ago incidentally. [facility] Medical History Contraceptive management Allergy/AdvReac Type Severity Reaction Status Date / Time Penicillins AdvReac Mild Rash Verified 01/03/24 23:18 Family History Father Non-Hodgkin lymphoma of extranodal and solid organ sites Grandmother Breast cancer Grandfather FH: prostate cancer Surgical History History of delivery Social History Smoking Status: Never smoker alcohol intake: never substance use type: does not use what type of physical activity do you participate in: bicycling and yoga frequency: 3-4 times per week Vital Signs Vital Signs Vital Signs: 01/03/24 23:16 01/03/24 23:25 01/04/24 01:00 Temperature 97.2 F L 98.1 F 98.6 F Temperature Source Temporal Oral Pulse Rate 131 H 98 89 Respiratory Rate 17 12 16 Blood Pressure 153/104 H 134/85 H 125/89 H Blood Pressure Mean 120 101 101 Pulse Ox 99 100 99 Oxygen Delivery Method Room Air Room Air Weight Weight: 160 lb Body Mass Index (BMI) 28.3 Physical Exam Const alert, oriented x3 and no apparent distress HEENT normocephalic and head/scalp atraumatic Resp normal respiratory effort Cardio regular rate GI soft to palpation; Negative for non-distended Palpation: tender RLQ; Negative for guarding Extremity no clubbing, cyanosis or edema Neuro CN's II-XII intact bilaterally Psych mental status grossly normal Results Lab / Micro Data 01/03/24 23:39 01/03/24 23:39 Labs: Laboratory Results - last 24 hr 01/03/24 23:39: WBC 15.5 H, RBC 4.89, Hgb 14.0, Hct 42.7, MCV 87.3, MCH 28.6, MCHC 32.8, RDW Std Deviation 40.5, RDW Coeff of Jana 12.6, Plt Count 266, MPV 11.0, Immature Gran % (Auto) 0.300, Neut % (Auto) 77.4 H, Lymph % (Auto) 15.3 L, Steele % (Auto) 4.9, Eos % (Auto) 1.9, Baso % (Auto) 0.2, Absolute Neuts (auto) 12.0 H, Absolute Lymphs (auto) 2.37, Nucleated RBC % 0, Sodium 141, Potassium 3.6, Chloride 110 H, Carbon Dioxide 27.0, Anion Gap 4 L, BUN 9, Creatinine 0.78, Estim Creat Clear Calc 98.85, Est GFR (MDRD) Af Amer 110, Est GFR (MDRD) Non-Af 91, BUN/Creatinine Ratio 11.6, Glucose 112 H, Calcium 9.3, Serum , Qual NEGATIVE, Urine Color Yellow, Urine Clarity Clear, Urine pH 7.0, Ur Specific [place] 1.010, Urine Protein Negative, Urine Glucose (UA) Normal, Urine Ketones Negative, Urine Occult Blood Negative, Urine Nitrite Negative, Urine Bilirubin Negative, Urine Urobilinogen Normal, Ur Leukocyte Esterase Negative, Urine RBC 0 SEEN, Urine WBC 0 SEEN, Ur Squamous Epith Cells 0 SEEN, Urine Bacteria 0 SEEN, Urine Mucus 0 SEEN Imaging Radiology Impression Abdomen/Pelvis CT 01/04/24 00:11 IMPRESSION: Acute appendicitis with periappendiceal collection likely contained microperforation. N.B. : The above Results were Read Back by Kristin Carmen MD to Jane Orta MD, and understanding confirmed on 01/04/2024 01:04:27 (ET). Electronically Signed: Kristin Carmen MD at 1:02 EST , ADDENDUM: 01/04/24 0111 IMPRESSION: Acute appendicitis with periappendiceal collection likely contained microperforation. N.B. : The above Results were Read Back by Kristin Carmen MD to Jane Orta MD, and understanding confirmed on 01/04/2024 01:04:27 (ET). Electronically Signed: Kristin Carmen MD at 1:02 EST , Assessment & Plan Assessment/Plan (1) Acute appendicitis: PLAN: Plan 1. Discussed procedure laparoscopic appendectomy, possible open along with the risk but not limited to bleeding, infection/abscess, injury to another organ (small bowel, colon, etc.), adhesion, hernia at incision sites, and anesthesia. Patient agreeable with plan and has no further questions. Latrice Vilchis M.D. Pager: [phone] [facility] [address] [place] [address], [address] [place] [address] Office: [phone]
--- NOTE | 2024-01-04 01:59 | ED.RN ---
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
--- OUTSIDE RECORDS SUMMARY | 2024-01-04 02:03 | XMS RPT_ITS | CCD ---
Author Name Unknown Address [address] [place] [address] Organization [facility] Care Team Providers Care Systems Analyst Developer Name Role Phone Elisha Ballard Primary Care Provider ELISHA BALLARD Primary Care Unavailable ABDIRIZAK HAN Attending Elisha Bennett Primary Care Provider [phone] Carla Carter Primary Care Provider Elisha Ballard Unavailable JANE SEGOVIA Attending UnavailCARLA Wang Primary Care Unavailable Salma Guthrie Primary Care Provider No, Physician Primary Care Provider UnavailElisha Christie CNP Primary Care Provider KATYA EDWARDS Admitting WILLIE García Attending Unavailable ELISHA BALLARD Primary Care Unavailable KATYA EDWARDS Attending Joyce garcia [facility] onsulting Unavailable WILLIE NASH Admitting Unavailable ELISHA BALLARD Primary Care Unavailable KATYA EDWARDS Attending KATYA Pendleton Referring SALMA Jacobs Primary Care Unavailable ELIU DIAZ Admitting Unavailable LAMIN FREEDMAN Attending Unavailable LAMIN FREEDMAN Primary Care Unavailable Edu Olivares MD Unavailable Lamin Freedman MD Primary Care Provider LAMIN FREEDMAN Primary Care Unavailable JUAN DANIEL BURROWS Primary Care Unavailable MARGARET JOHN Admitting Unavail JUAN DANIEL Davidson Primary Care Unavailable MARGARET JOHN Attending Unavail able Allergies Allergy Classification Reported Allergen(s) Allergy Type Date of Onset Reaction(s) Facility (15 sources) Penicillins; Translations: [Unknown] Propensity to adverse reactions to drug 08-30-2016 [facility] (3 sources) Penicillins Propensity to adverse reactions to drug 08-30-2016 [facility] Medications Current Medications Medication Drug Class(es) Dates [...] 160 cm Lamin Freedman MD Work Phone: [facility] 04-18-2022 08:45-0400 Body mass index (BMI) [Ratio] 26.57 kg/m2 Lamin Freedman MD Work Phone: [facility] 04-18-2022 08:45-0400 Body temperature 98.4 [degF] Lamin Freedman MD Work Phone: [facility] 04-18-2022 08:45-0400 Body weight 68.04 kg Lamin Freedman MD Work Phone: [facility] 04-18-2022 08:45-0400 Diastolic blood pressure 85 mm[Hg] Lamin Freedman MD Work Phone: [facility] 04-18-2022 08:45-0400 Heart rate 83 /min Lamin Freedman MD Work Phone: [facility] 04-18-2022 08:45-0400 SaO2% (BldA) [Mass fraction] 98 % Lamin Freedman MD Work Phone: [facility] 04-18-2022 08:45-0400 Systolic blood pressure 130 mm[Hg] Lamin Freedman MD Work Phone: [facility] 08-15-2021 08:00-0400 Body temperature 98.1 [degF] Katya Edwards MD Work Phone: [facility] 08-15-2021 08:00-0400 Diastolic blood pressure 85 mm[Hg] Katya Edwards MD Work Phone: [facility] 08-15-2021 08:00-0400 Heart rate 101 /min Katya Edwards MD Work Phone: [facility] 08-15-2021 08:00-0400 Respiratory rate 16 /min Katya Edwards MD Work Phone: [facility] 08-15-2021 08:00-0400 SaO2% (BldA) [Mass fraction] 97 % Katya Edwards MD Work Phone: [facility] 08-15-2021 08:00-0400 Systolic blood pressure 135 mm[Hg] Katya Yost Work Phone: [facility] 08-12-2021 08:04-0400 Body height 160 cm Katya Edwards MD Work Phone: [facility] 08-12-2021 08:04-0400 Body mass index (BMI) [Ratio] 33.13 kg/m2 Katya Edwards MD Work Phone: [facility] 08-12-2021 08:04-0400 Body weight 84.82 kg Katya Edwards MD Work Phone: [facility] 01-16-2021 08:14-0500 BMI (Body Mass Index) 28.34 kg/m2 [facility] 08:14-0500 Body Temperature 97 [degF] [facility] 01-16-2021 08:14-0500 Body weight 72.58 kg [facility] 01-16-2021 08:14-0500 BP Diastolic 79 mm[Hg] [facility] 01-16-2021 08:14-0500 BP Systolic 124 mm[Hg] [facility] 01-16-2021 08:14-0500 Height 160 cm [facility] 01-16-2021 08:14-0500 Pulse (Heart Rate) 90 /min [facility] 01-16-2021 08:14-0500 Pulse Oximetry 99 % [facility] 10-24-2020 17:48-0500 BMI (Body Mass Index) 25.69 kg/m2 [facility] 17:48-0500 Body Temperature 98.1 [degF] [facility] 17:48-0500 [facility].77 [facility]-24[facility]2020 17:48-0500 [facility] 160 [facility] 17:48-0500 Pulse (Heart Rate) 92 /min Jane Segovia [facility] 10-24-2020 17:48-0500 Pulse Oximetry 99 % Jane Segovia [facility] 11-24-2019 11:17-0500 BMI (Body Mass Index) 29.14 kg/m2 [facility] 11-24-2019 11:17-0500 Body weight 72.26 kg [facility] 11-24-2019 11:17-0500 BP Diastolic 83 mm[Hg] [facility] 11-24-2019 11:17-0500 BP Systolic 130 mm[Hg] [facility] 11-24-2019 11:17-0500 Pulse (Heart Rate) 87 /min [facility] 07-11-2019 18:21-0400 Body Temperature 98.4 [degF] [facility] 07-11-2019 18:21-0400 BP Diastolic 90 mm[Hg] [facility] 07-11-2019 18:21-0400 BP Systolic 131 mm[Hg] [facility] 07-11-2019 18:21-0400 Pulse (Heart Rate) 79 /min [facility] 07-11-2019 18:21-0400 Pulse Oximetry 97 % [facility] 07-11-2019 18:21-0400 Respiratory Rate 16 /min [facility] 07-07-2019 09:15-0400 BMI (Body Mass Index) 28.28 kg/m2 [facility] 07-07-2019 09:15-0400 Body weight 70.13 kg [facility] 07-07-2019 09:15-0400 BP Diastolic 85 mm[Hg] [facility] 07-07-2019 09:15-0400 BP Systolic 128 mm[Hg] [facility] 07-07-2019 09:15-0400 Pulse (Heart Rate) 83 /min [facility] 12-23-2018 13:16-0500 BMI (Body Mass Index) 28.29 kg/m2 Elisha Ballard [facility] 12-23-2018 13:16-0500 Body Temperature 97.59 [degF] Elisha Ballard [facility] 12-23-2018 13:16-0500 BP Diastolic 89 mm[Hg] Elisha Ballard [facility] 12-23-2018 13:16-0500 BP Systolic 134 mm[Hg] Elisha Ballard [facility] 12-23-2018 13:16-0500 Height 157.5 cm Elisha Ballard [facility] 12-23-2018 13:16-0500 Pulse (Heart Rate) 95 /min Elisha Ballard [facility] 12-23-2018 13:16-0500 Pulse Oximetry 99 % Elishabalbir Ballard [facility] 12-23-2018 13:16-0500 Weight 70.15 kg Elisha Elio [facility] Encounters Encounter Date Encounter Type Care Provider Facility Start: 07-25-2022 End: 07-25-2022 [facility] Start: 07-25-2022 End: 07-29-2022 [facility] Start: 04-22-2022 Patient encounter status Lamin Freedman MD Work Phone: [facility] Work Phone: Start: 04-18-2022 End: 04-22-2022 ambulatory LAMIN J [facility] Start: 04-18-2022 End: 04-22-2022 [facility]ulatory [facility] Start: 04-18-2022 End: 04-18-2022 Patient encounter status Lamin Freedman MD Work Phone: [facility] Start: 04-18-2022 End: 04-18-2022 Periodic preventive med est patient 18-39 yrs Lamin Freedman MD Work Phone: [facility] Procedures Date Procedure Procedure [...] Activity Detail Author Start: 12-23-2028 Tetanus vaccination [facility] Start: 04-18-2023 Depression screening using PHQ-9 (Patient Health Questionnaire 9) score Depression Screening (PHQ-2/9) [facility] Start: 04-18-2023 History and physical examination, annual for health maintenance Wellness Visit [facility] Start: 05-01-2022 Screening for malignant neoplasm of cervix PAP SMEAR [facility] Start: 01-16-2022 History and physical examination, annual for health maintenance Wellness Visit [facility] Start: 01-17-2021 End: 01-17-2021 Office Visit 01/17/2021 Office Visit Primary Care Elisha Ballard, PHARMACOLOGIST [address] [place] [address] [phone] [facility] Start: 12-15-2020 End: 12-15-2020 Immunization 12/15/2020 Immunization Primary Care Margaret John MD [address] [facility] [address] [place] [address] [phone] [facility] Start: 12-14-2020 COVID-19 Vaccine (2 of 2 - Moderna series) COVID-19 Vaccine (2 of 2 - Moderna series) [facility] Start: 12-14-2020 COVID-19 Vaccine (Moderna) (#2) COVID-19 Vaccine (Moderna) (#2) [facility] Start: 12-23-2019 History and physical examination, annual for health maintenance Wellness Visit [facility] Start: 10-06-2019 End: 10-06-2019 Office Visit 10/06/2019 Office Visit Gastroenterology Ruslan Carlasaundra Escobedo DO [address] [place] [address] [phone] [facility] Start: 07-19-2019 Influenza vaccination given SEQUENTIAL INFLUENZA VACCINE (#1) [facility] Start: 03-13-2019 Screening for malignant neoplasm of cervix PAP SMEAR [facility] Start: 07-19-2018 Influenza vaccination given SEQUENTIAL INFLUENZA VACCINE (#1) [facility] Start: 2003 Adolescent depression screening assessment Depression Screening (PHQ9) [facility] Start: 1991 Depression screening using PHQ-9 (Patient Health Questionnaire 9) score DEPRESSION SCREENING (PHQ9) [facility] Covid-19/Influenza Order Algorithm Covid-19/Influenza Order Algorithm Microbiology Routine Anosmia Contact With And (Suspected) Exposure To Other Viral Communicable Diseases Ordered: 10/24/2020 [facility] Immunizations Immunization Date Immunization Notes Care Provider Fa cility 09-18-2021 influenza virus vacc ine, unspecified formulation Lamin Freedman MD Work Phone: [facility] 09-18-2021 influenza, injectabl e, quadrivalent, preservative free Lamin Freedman MD Work Phone: [facility] 08-13-2021 varicella zoster imm une globulin Katya Edwards MD Work Phone: [facility] 08-13-2021 measles, mumps and r ubella virus vaccine Katya Edwards MD Work Phone: [facility] 08-13-2021 diphtheria, tetanus toxoids and acellular pertussis vaccine, unspecified formulation Katya Edwards MD Work Phone: [facility] 02-22-2021 Moderna SARS-CoV-2 Vaccination Rico Oes Pcp Amadou [facility] 11-16-2020 Moderna SARS-CoV-2 Vaccination Rosa Baig [facility] 09-20-2020 influenza virus vacc ine, unspecified formulation Salma Oberschmidt [facility] 12-22-2019 hepatitis A vaccine, adult dosage Mtsarah Bernardo [facility] 12-22-2019 hepatitis A vaccine, [facility] 08-21-2019 influenza virus vacc ine, unspecified formulation [facility] 12-23-2018 diphtheria, tetanus toxoids and acellular pertussis vaccine, unspecified formulation Elisha [facility] 12-23-2018 tetanus toxoid, redu ramos diphtheria toxoid, and acellular pertussis vaccine, adsorbed [facility] 07-03-2016 tuberculin skin test ; purified protein derivative solution, intradermal [facility] 09-17-2015 hepatitis B vaccine, adult dosage [facility] 07-14-2015 hepatitis B vaccine, adult dosage [facility] 11-26-2014 hepatitis B vaccine, adult dosage [facility] 09-01-2014 influenza, injectabl e, quadrivalent, preservative free [facility] 03-07-2012 hepatitis A vaccine, adult dosage [facility] 03-07-2012 poliovirus vaccine, inactivated [facility] 03-07-2012 typhoid capsular polysaccharide vaccine [facility] 03-07-2012 yellow fever vaccine [facility] 02-07-2010 hepatitis B vaccine, pediatric or pediatric/adolescent dosage [facility] 10-26-2009 hepatitis B vaccine, pediatric or pediatric/adolescent dosage [facility] 07-19-2009 hepatitis B vaccine, pediatric or pediatric/adolescent dosage [facility] 07-19-2009 meningococcal polysaccharide (groups A, C, Y and W-135) diphtheria toxoid conjugate vaccine (MCV4P) [facility] 07-19-2009 tetanus toxoid, redu ramos diphtheria toxoid, and acellular pertussis vaccine, adsorbed [facility] 02-23-1998 measles, mumps and r ubella virus vaccine [facility] 09-04-1995 diphtheria, tetanus toxoids and pertussis vaccine [facility] 09-04-1995 poliovirus vaccine, unspecified formulation [facility] 08-12-1992 diphtheria, tetanus toxoids and pertussis vaccine [facility] 04-25-1992 haemophilus influenz ae type b vaccine, conjugate unspecified formulation [facility] 04-25-1992 measles, mumps and r ubella virus vaccine [facility] 1991 diphtheria, tetanus toxoids and pertussis vaccine [facility] 1991 haemophilus influenz ae type b vaccine, conjugate unspecified formulation [facility] 1991 poliovirus vaccine, unspecified formulation [facility] 1991 diphtheria, tetanus toxoids and pertussis vaccine [facility] 1991 haemophilus influenz ae type b vaccine, conjugate unspecified formulation [facility] 1991 poliovirus vaccine, unspecified formulation [facility] 1991 diphtheria, tetanus toxoids and pertussis vaccine [facility] 1991 haemophilus influenz ae type b vaccine, conjugate unspecified formulation [facility] 1991 poliovirus vaccine, unspecified formulation [facility] Payers Date Payer Category Payer Worker's Compensation [id number] 2017 Unknown CARMIN[employer]ER[employer]/PREF/O/PPO xxxxxxxxxxxx 2017-Present [id number] 2017 Unknown [id number] 2017 Unknown [id number] 2017 Unknown CARMINA BERMAN/PREF/HMO/PPO [id number] 2017-Present [phone] [address] [place] [address] [id number] 1991 Unknown [id number] 1991 Unknown [id number] 903 1991 Unknown [id number] 902 1991 Unknown [id number] 902 1991 Unknown [id number] 902 1991 Unknown [id number] 903 1991 Unknown [id number] 900 1991 Unknown [id number] 900 Worker's Compensation WORKER'S C [employer] PENDING WORKERS COMPENSATION xxxxxxxxx Effective for all dates xxxxxxxxx [id number] Social History Date Type Detail Facility Start: 12-23-2018 End: 07-07-2019 Tobacco smoking status NJIS Never smoker [facility] Start: 1990 Sex Assigned At [facility] Start: 07-11-2019 End: 01-16-2021 Alcohol intake Current drinker of alcohol (finding) [facility] Start: 07-07-2019 End: 10-24-2020 Tobacco use and exposure Never used [facility] Exposure to SARS-CoV -2 (event) Yes [facility] Start: 01-16-2021 End: 04-18-2022 History SD[facility] Start: 01-16-2021 End: 04-18-2022 History SDOH Food Worry 1 [facility] Start: 01-16-2021 End: 04-18-2022 History SDOH Transport Med 2 [facility] Start: 04-02-2022 End: 04-12-2022 Exposure to SARS-CoV-2 (event) Not sure [facility] Start: 08-14-2021 End: 04-22-2022 Alcohol intake Ex-drinker (finding) [facility] Start: 08-14-2021 End: 04-22-2022 Alcohol intake [facility] Clinical Notes 08-13-2021 to 04-22-2022 Assessment & [...] UTD, due May 2022 with OBGYN STI: custodial monogamous relationship with 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 Vaccines: UTD Continued work on healthy diet and consistent aerobic exercise (minimum 150 minutes weekly) were suggested and discussed - already doing well. [facility] 04-22-2022 Miscellaneous Notes Associate d Problem(s): Encounter for well adult exam with abnormal findings Labs as ordered No current anxiety or depression (PHQ9: 0) No substance abuse concerns. Pap Smear: UTD, due May 2022 with OBGYN STI: press tender long goods monogamous relationship with 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 Vaccines: UTD [...] in separate encounter documented in this encounter [facility] 04-22-2022 Miscellaneous Notes Associate d Problem(s): Encounter for well adult exam with abnormal findings Labs as ordered No current anxiety or depression (PHQ9: 0) No substance abuse concerns. Pap Smear: UTD, due May 2022 with OBGYN STI: press tender long goods monogamous relationship with 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 Vaccines: UTD [...] in separate encounter documented in this encounter [facility] 04-22-2022 Evaluation + Plan note Associ ated Problem(s): Rectal bleeding Intermittent, every couple weeks Likely hemorrhoids in setting of recent and IBS-D Offered exam, pt respectfully declined Discussed limiting time spent on toilet, avoidance of straining, topical OTC options She would like new referral to GI as hers has left - placed order in separate encounter [facility] 04-18-2022 History of Presen t illness Narrative [...] UTD, due May 2022 with OBGYN STI: press tender long goods monogamous relationship with 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 Vaccines: UTD [...] SECTION; Surgeon: Willie Nash Jr., MD; Location: [facility] OR; Service: OBGYN WISDOM TOOTH EXTRACTION Allergies: [...] rashes or discoloration. documented in this encounter [facility] 04-18-2022 History of Presen t illness Narrative [...] UTD, due May 2022 with OBGYN STI: press tender long goods monogamous relationship with 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 Vaccines: UTD [...] SECTION; Surgeon: Willie Nash Jr., MD; Location: [facility] OB OR; Service: OBGYN WISDOM TOOTH [...] rashes or discoloration. documented in this encounter [facility] 08-15-2021 Miscellaneous Notes A guide to Caring [...] note was copied from a baby's chart. clinical application consultant (LC) called to patient room to [...] Apgars: 8/9 Discharge Date: TBD JAY TORRES [id number] 1990 DATE OPERATIVE REPORT SURGEON WILLIE NASH [...] condition. MD Ritika CASPER JR 08/13/2021 01:11 [id number] T 08/13/2021 05:00 CAK/MODL Section Delivery Note Diagnosis: Principal Problem: Amniotic fluid leaking Mother's Information Delivery Blood Loss 08/12/21 0200 - 08/13/21 0112 Quantitative Blood Loss - Delivery (mL) Hospital Encounter 676 mL Total 676 mL Rodo Torres [[id number]] Delivery Anesthesia Method: Epidural Operative Delivery Forceps attempted?: No Vacuum extractor attempted?: No [place] Presentation Presentation: Vertex Information date/time: 08/13/217 Gender: Female Delivery type: , Low Transverse Delivery location: OB Unit Initial disposition: Routine NB Care ?: No Details: Trial of labor?: No categorization: Primary priority: Unscheduled Indications for : Failure to Progress Skin incision type: Pfannenstiel Delivery Providers Delivering clinician: Willie Nash Jr., MD Other personnel: Provider Role Covering Attending Resident Jayda Gibson CNM Mess Attendant Crew Chasity Mccarthy RN Delivery Nurse Neelima Solis RN Registered Nurse Delivery Assist Sejal Saltzmann, PHARMACOLOGIST Nurse Practitioner Cord Vessels: 3 vessels Complications: [...] None Brief Post Operative Note Patient Name: aJy Torres : 1990 (31 y.o.) Date of Service: 08/13/2021 CSN: [id number] Procedure(s): SECTION Pre-Operative Diagnoses: * Failure to Progress Post-Operative Diagnoses: * Same as Pre-Op Diagnosis Surgeon(s) and Role: * Willie Nash Jr., MD - Primary * Jayda Gibson CNM - Assisting Anesthesiologist: Martina Wright MD POWER MULE OPERATOR: Kristopher Mcpherson CRNA Prosthetic Assistant: Chasity Mccarthy RN Scrub Person: ST Oniel [...] continue to monitor closely and continue POC. POWER MULE OPERATOR at bedside for epidural Pt ambulated from Triage 4 to L&D rm 2311 with S/O and RN. Orders for pitocin. at 40+6 presents c/o SROM around 0200. Clear fluid noted. Ctx q10 minutes. +FM. documented in this encounter [facility] 08-15-2021 Hospital course Narrative DISCHARGE SUMMARY Patient: Jay Torres Date of : 1990 Site: [facility] Provider: Elisha Ballard CNP Admit Date: [...] Physician(s) Family Provider: Elisha Ballard CNP, Address: [address] [place] [address] [address] / [facility] [address] Follow Up: No follow-up provider specified. Additional Information: Patient instructions, including activity, were given to the patient/family at discharge. Please see the After Visit Summary in the electronic medical record for details. Time spent on discharge: < 30 minutes Completed by: Katya Edwards MD on 08/15/21, 9:05 AM documented in this encounter [facility] 08-15-2021 History of Presen t illness Narrative POD#2 doing well af vss inc: c/d/i release home later today or tomorrow 31 yo POD1 LTCS. Doing well, pain controlled. Mod lochia. . AFVSS abd soft, ATTP, incision c/d/i. Postop hgb 10. Circled spots of serous appearing drainage on coverlet SPLICING MACHINE OPERATOR NOTE Diagnosis: primary for failure to progress Surgeon: Willie Nash MD Second Worker: Jayda Gibson CNM Pt has been unchanged for 6 H @ 6cm with adequate labor and desires to proceed with . Consent given [facility] TRIAGE NOTE Chief Complaint Patient presents [...] for IP care documented in this encounter [facility] 08-13-2021 History and physi atul note 31 yo @ 40W6D with ROM H+p reviewed and no changes made documented in this encounter [facility] [...] [facility] lipid [facility] Attachments The following attachments cannot be sent through Care Everywhere. * Section: Post-op ([place]izen [place]) [facility]* Attachments The following attachments cannot be sent through Care Everywhere. * Rectal Bleeding ([place]izen [place]) * Hemorrhoids ([place]) [facility]* Attachments The following attachments cannot be sent through Care Everywhere. * Rectal Bleeding ([place]izen [place]) * Hemorrhoids ([place]) [facility] Reason for Referral Status Reason Specialty Diagnoses / Procedures Referred By Contact Referred To Contact Authorized Specialty Services Required/Patie nt's Best Interest Gastroenterology Diagnoses Diarrhea, unspecified type Elisha Ballard CNP [address] [place] [address] [place] [address] Instructions * Patient Instructions* Elisha Ballard CNP [...] The doctor may recommend that you take [id number] medicine, such as loperamide (Imodium), if you [...] Log into your personal health record on [email or web address] and enter W335 in the Education box to learn more about Diarrhea: Care Instructions. Current as of: August 10, 2018 Content Version: 11.9 0340-8364 [employer]ripl. Care instructions adapted under license by your healthcare professional. If you have questions about a medical condition or this instruction, always ask your healthcare professional. [employer] disclaims any warranty or liability for your [...] you are older than 45 and are -[place]ong[place]ian or have a father or brother who got prostatecancer when he was younger than 65. When should you call for help? Watch closely for changes in your health, and be sure to contact your doctor if you have any problems or symptoms that concern you. Where can you learn more? Log into your personal health record on [email or web address] and enter P072 in the Education box to learn more about Well Visit, Ages 18 to 50: Care Instructions. Current as of: February 12, 2018 Content Version: 11.9 6904-4349 wripl. Care instructions adapted under license by your healthcare professional. If you have questions about a medical condition or this instruction, always ask your healthcare professional. wripl disclaims any warranty or liability for your [...] breath. For a Fever Take a fever game and fish protector. If you choose to or if your fever is very high, you can take a fever game and fish protector.Acetaminophen is what is usually recommended. While ibuprofen is also a fever game and fish protector, there is some concern that it may [...] Log into your personal health record on [email or web address] and enter M375 in the Education box to learn more about Learning About Hypoxemia. Current as of: April 26, 2019 Content Version: 12.3 3464-4120 wripl. Care instructions adapted under license by your healthcare professional. If you have questions about a medical condition or this instruction, always ask your healthcare professional. wripl disclaims any warranty or liability for your use of this information. [facility] COVID-19 Post-swabbing Instructions We will do our best to update you as soon as we receive your test results, but if we had to send your test to be run at the lab, you may see the results on Pycno or receive a call from [facility] before we are able to contact you. [...] face It is not recommended by the [facility] to have another COVID-19 test done in [...] results. - If you have an active Pycno account, and your COVID-19 test is negative (not detected), then you will be notified through your Pycno account. You should call the urgent care if you have any further questions. - If your COVID-19 test is positive (detected), you will receive a phone call to discuss your results and answer any questions you might have at that time. Please make sure [facility] has your updated phone number so we can contact you. [facility] will notify the [facility] of any positive results to comply with [...] and warm water and/or alcohol based hand transit department clerk, scrubbing your hands for at least 20 [...] Other COVID Questions? CDC - https://www.cdc.gov/coronavirus/2019-ncov/index.html - https://www.cdc.gov/coronavirus/2019-ncov/yd-zxc-ndl-sick/quarantine.html [facility] - Website: https://coronavirus.[place].gov/wps/portal/gov/covid-19/home - Hotline: 069-9-OUB-ODH (950-793-3362) [employer]: https://blog.Contractor Copilot/series/xzftn-03-rnipjhscnqa-toolkit/ documented in this encounter History of Present [...] date: Pt is due at next appt [facility] Abnormal pap? no : 0 Para: 0 [...] Carla Mercer, - 11/24/2019 11:32 AM EST [facility] [address] [facility] [address] Jay Torres is here today for follow-up. [...] diarrhea she can use something like loperamide lizu-ibs-ubgdivw and we have discussed a titration and dosing of this as well Thank you very much for allowing me to participate in your patient's care and if you have any further questions please do not hesitate to call. Sincerely; Carla Merecr DO CC: No ref. provider found documented in this encounter* Jane Segovia PA-C - 10/24/2020 6:07 PM EST Patient Name: [facility] Location: Jay Torres [address] [place] [id number] Date Of : Date Of Visit: 1990 10/24/2020 MRN# Provider: [id number] Jane Segovia PA-C Chief Complaint Patient presents [...] breath. For a Fever Take a fever game and fish protector. If you choose to or if your fever is very high, you can take a fever game and fish protector.Acetaminophen is what is usually recommended. While ibuprofen is also a fever game and fish protector, there is some concern that it may [...] Log into your personal health record on [email or web address]://[email or web address] Copilot and enter M375 in the Education box to learn more about Learning About Hypoxemia. Current as of: April 26, 2019 Content Version: 12.3 9725-1870 wripl. Care instructions adapted under license by your healthcare professional. If you have questions about a medical condition or this instruction, always ask your healthcare professional. wripl disclaims any warranty or liability for your use of this information. [facility] COVID-19 Post-swabbing Instructions We will do our best to update you as soon as we receive your test results, but if we had to send your test to be run at the lab, you may see the results on Pycno or receive a call from [facility] before we are able to contact you. [...] results. - If you have an active Pycno account, and your COVID-19 test is negative (not detected), then you will be notified through your Pycno account. You should call the urgent care if you have any further questions. - If your COVID-19 test is positive (detected), you will receive a phone call to discuss your results and answer any questions you might have at that time. Please make sure [facility] has your updated phone number so we can contact you. [facility] will notify the [facility] of any positive results to comply with [...] and warm water and/or alcohol based hand transit department clerk, scrubbing your hands for at least 20 [...] Other COVID Questions? CDC - https://www.cdc.gov/coronavirus/2019-ncov/index.html - https://www.cdc.gov/coronavirus/2019-ncov/os-kgk-bkd-sick/quarantine.html [facility] - Website: https://coronavirus.[place].gov/wps/portal/gov/covid-19/home - Hotline: 618-4-ERU-ODH (709-196-4726) [facility]: https://blog.InnoCyte.LaunchKey/series/ohwrt-49-qkhyayzgdha-toolkit/ documented in this encounter* Salma Guthrie DO [...] file Gets together: Not on file Attends methodist service: Not on file Active member of [...] medications. SALMA GUTHRIE DO PGY3 Family Medicine [facility] * Wero Spicer MA - 01/16/2021 8:15 [...] Mercer, DO - 07/07/2019 10:25 AM EDT [facility] [address] [facility] [address] Jay Torres is a 29 y.o. female [...] rash. She denies trying any type of oant-yku-ldlptey medicines for her symptoms at this point. [...] file Gets together: Not on file Attends methodist service: Not on file Active member of [...] A total of 35 minutes were spent eppz-km-lcmj with the patient during this encounter and [...] GABY This dictation has been transcribed via BeVocal and has not been reviewed and may [...] FoundDocuments on File Type Date Recorded Patient Sample Box Maker Expl anation Advance Directives and Livin g Will 07/11/2019 6:18 PM Documents on File Type Date Recorded Patient Sample Box Maker Expl anation Advance Directives and Living Will Documents on File Type Date Recorded Patient Sample Box Maker Expl anation Advance Directives and Livin g Will 07/11/2019 6:18 PM Documents on File Type Date Recorded Patient Sample Box Maker Expl anation Advance Directives and Livin g [...] Everywhere. * Exposure: Blood and Body Fluids (Citizen [place]) * [place] ED BODY FLUID EXPOSURE documented [...] Gastroenterology Diagnoses Diarrhea, unspecified type Elisha Ballard, [facility] [address] [place] [address] Carla Mercer, DO [address] [place] [address] Reason Comments Body Fluid Exposure Status Reason Specialty Diagnoses / Procedures Referred By Contact Referred To Contact Pending Review Reason Comments Rupture of Membranes Specialty Diagnoses / Procedures Referred By Paolo ross Referred To Contact Diagnoses Amniotic fluid leaking Referral ID Status Reason Start Date Expiration Date Visits Re quested Visits Authorized [id number] 1 Reason Comments Annual Exam Had [...] DATE CREATED AUTHOR AUTHOR'S ORGANIZ ATION 10/25/2020 [facility] DATE CREATED AUTHOR AUTHOR'S ORGANIZ ATION 08/18/2021 [facility] DATE CREATED AUTHOR AUTHOR'S ORGANIZ ATION 04/21/2022 [facility] DATE CREATED AUTHOR AUTHOR'S ORGANIZ ATION 07/28/2022 [facility] Abdirizak Han, DO - 07/11/2019 6:02 PM EDTFawn Eddy RN - 07/11/2019 5:45 PM EDT ED Notes (unrecognized secti on and content) PCP: Elisha Ballard, PHARMACOLOGIST Chief Complaint Patient presents with Body Fluid Exposure HPI: 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 Allergies: Allergies Allergen Reactions Penicillins Rash Medications: Jay Torres Home Medication Instructions Prior to Surgery ZOE:[id number] Printed on:07/11/19 1397 Medication Information Take last dose on Take [...] If indicated, administer prior to discharge. Provide [facility] vaccine information sheet(s) (VIS) for patient for [...]
Care Teams (unrecognized sec tion and content) Systems Analyst Developer Relationship Specialty Start Date End Date Edu Olivares MD [address] [place] [address] Dr [address] [place] [id number] PCP - PATRICIO Attributed Provider - Elysian Hoopla 09/18/21 11/17/50 Lamin Freedman MD [address] [place] [address] Dr. [address] [place] [id number] PCP - General Family Medicine 04/18/22 Systems Analyst Developer Relationship Specialty Start Date End Date Edu Olivares MD [address] [place] [address] Dr [address] [place] [id number] PCP - PATRICIO Attributed Provider - [employer] 09/18/21 11/17/50 Lamin Freedman MD [address] [place] [address] Dr. [address] [place] [id number] PCP - General Family Medicine 04/18/22 FOR [...] BE BASED ON THE PRIMARY CLINICAL RECORDS. [facility]. provides no warranty or guarantee of the accuracy or completeness of information in this document.
[2024-01-04] MEDS: Ciprofloxacin 400 MG/200 ML BAG 200 MG IV (02:30)
[2024-01-04] MEDS: Bupivacaine Mpf 0.5% 30 ML VIAL (03:43)
--- NOTE | 2024-01-04 03:53 | OP.PCM_ITS ---
Report of Operation Date of Procedure: 01/04/24 Pre-Operative Diagnosis: Acute appendicitis Post-Operative Diagnosis: Same Surgery/Procedure Performed:: Laparoscopic appendectomy Description of Surgical Findings:: Inflamed/dilated appendix Surgeon: Latrice Vilchis Type of Anesthesia: General/Supplemental Anesthesiologist: Angel Haynes Special Medications: Cipro 400 mg IV x 1, Flagyl 500 mg IV x 1 for acute appendicitis Specimen's removed: Appendix Estimated Blood Loss (mL): 10 cc Description of Procedure: Indications: 33-year-old female presented to the ER with new right lower quadrant pain yesterday at 5 PM. On workup she was found to have acute appendicitis on CT and a leukocytosis of 15. Patient was started on antibiotics in the ER for acute appendicitis-Cipro 400 mg IV x 1/Flagyl 500 mg IV x 1 Description of the procedure: The patient was placed on operating table in supine position. General anesthesia was induced. A timeout was completed verifying correct patient, procedure, position and special equipment prior to beginning procedure. Abdomen was prepped and draped in usual sterile fashion. Incision was made in the natural skin line above the umbilicus with a 15 blade scalpel. The fascia was elevated and incised. Entry into the peritoneum was confirmed visually and no bowel was noted in the vicinity of the incision. The Angelo trocar was placed under direct vision. Abdomen insufflated with a pressure of 12-15 mmHg. Patient tolerated insertion well. The scope was inserted and the abdomen inspected. No injuries from initial trocar placement were noted. Minimal amount of fluid was seen in the right low er quadrant. An direct visualization 2 -5 mm trocars were placed one above the symphysis pubis and below the hairline and one in the left lower quadrant lateral to the rectus muscle. Care is taken to avoid injury to the bladder and inferior epigastric vessels. The table was placed in Trendelenburg position with the right side elevated. The omentum adherent to the appendix was grasped with atraumatic grasper and elevated. It was noted to be inflamed/dilated. Tight adhesions were carefully taken down with the help of the Enseal. A window was developed in the mesoappendix at the point between the base of the appendix and the cecum. An endoscopic 45 mm linear cutting stapler blue load was then used to divide and staple the base of the appendix. Enseal was used to divide the mesoappendix. The appendix was withdrawn into the Angelo trocar after being placed endoscopically retrieval bag. Appendix was sent to pathology. Supraumbilical incision had to be enlarged due to the size of the appendix. The appendiceal stump was then irrigated and hemostasis was assured. Fluid was suctioned no other pathology was identified. Secondary trochars were removed under direct visualization. No bleeding was noted trocar sites. The laparoscope withdrawn and the umbilical trocar removed. The abdomen was allowed to collapse. Local anesthesia of 30 mL of 0.5% Marcaine was used at the incision sites. The umbilical trocar site was closed with three ufydiw-hf-xuaxy 0 Vicryl suture. The skin was closed using sutures of 4-0 Monocryl and Steri-Strips. The patient was extubated. The patient tolerated the procedure well and was taken to the postanesthesia care unit in satisfactory condition. Complications none
--- NOTE | 2024-01-04 03:56 | DCINST_ITS ---
Discharge Instructions Diet Discharge Diet: Light diet - advance as tolerated Activity Discharge Activity: May Not Drive (while taking narcotic pain medications.) May shower in (days): 1 Lifting Restrictions: no lifting >20 lbs x 2 wks, no strenuous exercise for 4 wks Dressing / Incision Call your doctor if your incision/area has: Continuous Slow Oozing, Sudden Increased Bleeding, Increased Pain/ Swelling, Increased Redness, Foul Smelling Discharge and Swelling at the incision site Call your doctor if you observe: Fever of 101 or Higher Remove Dressing in: 2 days Cleanse incision/area with: Soap & Water Additional Dressing/Incision Instructions:: Steri-Strips will fall off in 7 to 10 days, if they do not fall off okay to remove after 10 days. Follow Up Care Please Follow Up With: Latrice Vilchis MD When: Call the office for a follow-up appointment 2 weeks; after 5 PM and on the weekends call [phone] with any concerns. Test Results: Test results from this visit will be discussed in further detail at your follow- up appointment, if applicable. Discharge Plan Admission Admit Date/Time: 01/04/24 02:00 Attending Provider: Latrice Vilchis Primary Care Provider: Giuliana Vargas Discharge Orders/Prescriptions Prescriptions: New oxycodone-acetaminophen 5-325 mg tablet 1 - 2 tab PO Q6H PRN (Reason: pain) 3 Days Qty: 14 0RF Referrals / Follow Up: Giuliana Vargas, DO [Primary Care Provider] - Disposition Disposition (needs filled in before D/C Order can be placed): Home, Self Care
[2024-01-04] MEDS: Lactated Ringers 1,000 ML 120 ML IV (04:49)
[2024-01-04] MEDS: Acetaminophen 325 MG Tablet 650 MG PO ×2 (05:48→12:57)
--- OUTSIDE RECORDS SUMMARY | 2024-01-04 05:56 | XMS RPT_ITS | CCD ---
Author Name Unknown Address [address] [place] [address] Organization [facility] Care Team Providers Care Medart Operator Name Role Phone Elisha Ballard Primary Care Provider ELISHA BALLARD Primary Care Unavailable ABDIRIZAK HAN Attending Elisha Bennett Primary Care Provider [phone] Carla Carter Primary Care Provider Elisha Ballard Unavailable JANE SEGOVIA Attending UnavailCARLA Wang Primary Care Unavailable Salma Guthrie Primary Care Provider [phone] No, Physician Primary Care Provider UnavailElisha Christie CNP Primary Care Provider KATYA EDWARDS Admitting WILLIE García Attending Unavailable ELISHA BALLARD Primary Care Unavailable KATYA EDWARDS Attending Joyce garcia [facility] GENERIC C onsulting Unavailable [...] Propensity to adverse reactions to drug 08-30-2016 [facility] (3 sources) Penicillins Propensity to adverse reactions to drug 08-30-2016 [facility] Medications Current Medications Medication Drug [...] 160 cm Lamin Freedman MD Work Phone: [facility] 04-18-2022 08:45-0400 Body mass index (BMI) [Ratio] 26.57 kg/m2 Lamin Freedman MD Work Phone: [facility] 04-18-2022 08:45-0400 Body temperature 98.4 [degF] Lamin Freedman MD Work Phone: [facility] 04-18-2022 08:45-0400 Body weight 68.04 kg Lamin Freedman MD Work Phone: [facility] 04-18-2022 08:45-0400 Diastolic blood pressure 85 mm[Hg] Lamin Freedman MD Work Phone: [facility] 04-18-2022 08:45-0400 Heart rate 83 /min Lamin Freedman MD Work Phone: [facility] 04-18-2022 08:45-0400 SaO2% (BldA) [Mass fraction] 98 % Lamin Freedman MD Work Phone: [facility] 04-18-2022 08:45-0400 Systolic blood pressure 130 mm[Hg] Lamin Freedman MD Work Phone: [facility] 08-15-2021 08:00-0400 Body temperature 98.1 [degF] Katya Edwards MD Work Phone: [facility] 08-15-2021 08:00-0400 Diastolic blood pressure 85 mm[Hg] Katya Edwards MD Work Phone: [facility] 08-15-2021 08:00-0400 Heart rate 101 /min Katya Edwards MD Work Phone: [facility] 08-15-2021 08:00-0400 Respiratory rate 16 /min Katya Edwards MD Work Phone: [facility] 08-15-2021 08:00-0400 SaO2% (BldA) [Mass fraction] 97 % Katya Edwards MD Work Phone: [facility] 08-15-2021 08:00-0400 Systolic blood pressure 135 mm[Hg] Katya Yost Work Phone: [facility] 08-12-2021 08:04-0400 Body height 160 cm Katya Edwards MD Work Phone: [facility] 08-12-2021 08:04-0400 Body mass index (BMI) [Ratio] 33.13 kg/m2 Katya Edwards MD Work Phone: [facility] 08-12-2021 08:04-0400 Body weight 84.82 kg Katya Edwards MD Work Phone: [facility] 01-16-2021 08:14-0500 BMI (Body Mass Index) 28.34 kg/m2 [facility]-16[facility]21 08:14-0500 Body Temperature 97 [degF] [facility] 01-16-2021 08:14-0500 Body weight 72.58 kg [facility] 01-16-2021 08:14-0500 BP Diastolic 79 mm[Hg] [facility] 01-16-2021 08:14-0500 BP Systolic 124 mm[Hg] [facility] 01-16-2021 08:14-0500 Height 160 cm [facility] 01-16-2021 08:14-0500 Pulse (Heart Rate) 90 /min [facility] 01-16-2021 08:14-0500 Pulse Oximetry 99 % [facility] 10-24-2020 17:48-0500 BMI (Body Mass Index) 25.69 kg/m2 [facility]2020 17:48-0500 Body Temperature 98.1 [degF] [facility] 17:48-0500 Body [facility] 65.77 [facility]-24-2020 17:48-0500 Height 160 cm [facility]2020 17:48-0500 Pulse (Heart Rate) 92 /min Jane Segovia [facility] 10-24-2020 17:48-0500 Pulse Oximetry 99 % Jane Segovia [facility] 11-24-2019 11:17-0500 BMI (Body Mass Index) 29.14 kg/m2 [facility] 11-24-2019 11:17-0500 Body weight 72.26 kg [facility] 11-24-2019 11:17-0500 BP Diastolic 83 mm[Hg] [facility] 11-24-2019 11:17-0500 BP Systolic 130 mm[Hg] [facility] 11-24-2019 11:17-0500 Pulse (Heart Rate) 87 /min [facility] 07-11-2019 18:21-0400 Body Temperature 98.4 [degF] [facility] 07-11-2019 18:21-0400 BP Diastolic 90 mm[Hg] [facility] 07-11-2019 18:21-0400 BP Systolic 131 mm[Hg] [facility] 07-11-2019 18:21-0400 Pulse (Heart Rate) 79 /min [facility] 07-11-2019 18:21-0400 Pulse Oximetry 97 % [facility] 07-11-2019 18:21-0400 Respiratory Rate 16 /min [facility] 07-07-2019 09:15-0400 BMI (Body Mass Index) 28.28 kg/m2 [facility] 07-07-2019 09:15-0400 Body weight 70.13 kg [facility] 07-07-2019 09:15-0400 BP Diastolic 85 mm[Hg] [facility] 07-07-2019 09:15-0400 BP Systolic 128 mm[Hg] [facility] 07-07-2019 09:15-0400 Pulse (Heart Rate) 83 /min [facility] 12-23-2018 13:16-0500 BMI (Body Mass Index) 28.29 kg/m2 Elisha Ballard [facility] 12-23-2018 13:16-0500 Body Temperature 97.59 [degF] Elisha Ballard [facility] 12-23-2018 13:16-0500 BP Diastolic 89 mm[Hg] Elisha Ballard [facility] 12-23-2018 13:16-0500 BP Systolic 134 mm[Hg] Elisha Ballard [facility] 12-23-2018 13:16-0500 Height 157.5 cm Elisha Ballard [facility] 12-23-2018 13:16-0500 Pulse (Heart Rate) 95 /min Elisha Ballard [facility] 12-23-2018 13:16-0500 Pulse Oximetry 99 % Elishabalbir Ballard [facility] 12-23-2018 13:16-0500 Weight 70.15 kg Elisha Elio [facility] Encounters Encounter Date Encounter Type Care Provider Facility Start: 07-25-2022 End: 07-25-2022 [facility] Start: 07-25-2022 End: 07-29-2022 [facility] Start: 04-22-2022 Patient encounter status Lamin Freedman MD Work Phone: [facility] Work Phone: Start: 04-18-2022 End: 04-22-2022 ambulatory [facility] Start: 04-18-2022 End: 04-22-2022 [facility]ulatory [facility] Start: 04-18-2022 End: 04-18-2022 Patient encounter status Lamin Freedman MD Work Phone: [facility] Start: 04-18-2022 End: 04-18-2022 Periodic preventive med est patient 18-39 yrs Lamin Freedman MD Work Phone: [facility] Procedures Date Procedure Procedure [...] Activity Detail Author Start: 12-23-2028 Tetanus vaccination [facility] Start: 04-18-2023 Depression screening using PHQ-9 (Patient Health Questionnaire 9) score Depression Screening (PHQ-2/9) [facility] Start: 04-18-2023 History and physical examination, annual for health maintenance Wellness Visit [facility] Start: 05-01-2022 Screening for malignant neoplasm of cervix PAP SMEAR [facility] Start: 01-16-2022 History and physical examination, annual for health maintenance Wellness Visit [facility] Start: 01-17-2021 End: 01-17-2021 Office Visit 01/17/2021 Office Visit Primary Care Elisha Ballard, MANAGER COUNCIL [address] [place] [address] [phone] [facility] Start: 12-15-2020 End: 12-15-2020 Immunization 12/15/2020 Immunization Primary Care Margaret John MD [address] [facility] [address] [place] [address] [phone] [facility] Start: 12-14-2020 COVID-19 Vaccine (2 of 2 - Moderna series) COVID-19 Vaccine (2 of 2 - Moderna series) [facility] Start: 12-14-2020 COVID-19 Vaccine (Moderna) (#2) COVID-19 Vaccine (Moderna) (#2) [facility] Start: 12-23-2019 History and physical examination, annual for health maintenance Wellness Visit [facility] Start: 10-06-2019 End: 10-06-2019 Office Visit 10/06/2019 Office Visit Gastroenterology Ruslan Carlasaundra Escobedo DO [address] [place] [address] [phone] [facility] Start: 07-19-2019 Influenza vaccination given SEQUENTIAL INFLUENZA VACCINE (#1) [facility] Start: 03-13-2019 Screening for malignant neoplasm of cervix PAP SMEAR [facility] Start: 07-19-2018 Influenza vaccination given SEQUENTIAL INFLUENZA VACCINE (#1) [facility] Start: 2003 Adolescent depression screening assessment Depression Screening (PHQ9) [facility] Start: 1991 Depression screening using PHQ-9 (Patient Health Questionnaire 9) score DEPRESSION SCREENING (PHQ9) [facility] Covid-19/Influenza Order Algorithm Covid-19/Influenza Order Algorithm Microbiology Routine Anosmia Contact With And (Suspected) Exposure To Other Viral Communicable Diseases Ordered: 10/24/2020 [facility] Immunizations Immunization Date Immunization Notes Care Provider Fa cility 09-18-2021 influenza virus vacc ine, unspecified formulation Lamin Freedman MD Work Phone: [facility] 09-18-2021 influenza, injectabl e, quadrivalent, preservative free Lamin Freedman MD Work Phone: [facility] 08-13-2021 varicella zoster imm une globulin Katya Edwards MD Work Phone: [facility] 08-13-2021 measles, mumps and r ubella virus vaccine Katya Edwards MD Work Phone: [facility] 08-13-2021 diphtheria, tetanus toxoids and acellular pertussis vaccine, unspecified formulation Katya Edwards MD Work Phone: [facility] 02-22-2021 Moderna SARS-CoV-2 Vaccination Rico Oes Pcp Amadou [facility] 11-16-2020 Moderna SARS-CoV-2 Vaccination Rosa Baig [facility] 09-20-2020 influenza virus vacc ine, unspecified formulation Salma Oberschmidt [facility] 12-22-2019 hepatitis A vaccine, adult dosage Kysarah Bernardo [facility] 12-22-2019 hepatitis A vaccine, unspecified [facility] 08-21-2019 influenza virus vacc ine, unspecified formulation [facility] 12-23-2018 diphtheria, tetanus toxoids and acellular pertussis vaccine, unspecified formulation Elisha [facility] 12-23-2018 tetanus toxoid, redu ramos diphtheria toxoid, and acellular pertussis vaccine, adsorbed [facility] 07-03-2016 tuberculin skin test ; purified protein derivative solution, intradermal [facility] 09-17-2015 hepatitis B vaccine, adult dosage [facility] 07-14-2015 hepatitis B vaccine, adult dosage [facility] 11-26-2014 hepatitis B vaccine, adult dosage [facility] 09-01-2014 influenza, injectabl e, quadrivalent, preservative free [facility] 03-07-2012 hepatitis A vaccine, adult dosage [facility] 03-07-2012 poliovirus vaccine, inactivated [facility] 03-07-2012 typhoid capsular polysaccharide vaccine [facility] 03-07-2012 yellow fever vaccine [facility] 02-07-2010 hepatitis B vaccine, pediatric or pediatric/adolescent dosage [facility] 10-26-2009 hepatitis B vaccine, pediatric or pediatric/adolescent dosage [facility] 07-19-2009 hepatitis B vaccine, pediatric or pediatric/adolescent dosage [facility] 07-19-2009 meningococcal polysaccharide (groups A, C, Y and W-135) diphtheria toxoid conjugate vaccine (MCV4P) [facility] 07-19-2009 tetanus toxoid, redu ramos diphtheria toxoid, and acellular pertussis vaccine, adsorbed [facility] 02-23-1998 measles, mumps and r ubella virus vaccine [facility] 09-04-1995 diphtheria, tetanus toxoids and pertussis vaccine [facility] 09-04-1995 poliovirus vaccine, unspecified formulation [facility] 08-12-1992 diphtheria, tetanus toxoids and pertussis vaccine [facility] 04-25-1992 haemophilus influenz ae type b vaccine, conjugate unspecified formulation [facility] 04-25-1992 measles, mumps and r ubella virus vaccine [facility] 1991 diphtheria, tetanus toxoids and pertussis vaccine [facility] 1991 haemophilus influenz ae type b vaccine, conjugate unspecified formulation [facility] 1991 poliovirus vaccine, unspecified formulation [facility] 1991 diphtheria, tetanus toxoids and pertussis vaccine [facility] 1991 haemophilus influenz ae type b vaccine, conjugate unspecified formulation [facility] 1991 poliovirus vaccine, unspecified formulation [facility] 1991 diphtheria, tetanus toxoids and pertussis vaccine [facility] 1991 haemophilus influenz ae type b vaccine, conjugate unspecified formulation [facility] 1991 poliovirus vaccine, unspecified formulation [facility] Payers Date Payer Category Payer Worker's Compensation [id number] 2017 Unknown CARMINA BERMAN/PREF/O/PPO xxxxxxxxxxxx 2017-Present [id number] 2017 Unknown [id number] 2017 Unknown [id number] 2017 Unknown CARMINA BERMAN/PREF/HMO/PPO [id number] 2017-Present [phone] [address] [place] [address] [id number] 1991 Unknown [id number] 902 1991 Unknown [id number] 903 1991 Unknown [id number] 902 1991 Unknown [id number] 902 1991 Unknown [id number] 902 1991 Unknown [id number] 903 1991 Unknown [id number] 900 1991 Unknown [id number] 900 Worker's Compensation WORKER'S C [employer] PENDING WORKERS COMPENSATION xxxxxxxxx Effective for all dates xxxxxxxxx [id number] Social History Date Type Detail Facility Start: 12-23-2018 End: 07-07-2019 Tobacco smoking status MAIS Never smoker [facility] Start: 1990 Sex Assigned At [facility] Start: 07-11-2019 End: 01-16-2021 Alcohol intake Current drinker of alcohol (finding) [facility] Start: 07-07-2019 End: 10-24-2020 Tobacco use and exposure Never used [facility] Exposure to SARS-CoV -2 (event) Yes [facility] Start: 01-16-2021 End: 04-18-2022 History SDOH [facility] Start: 01-16-2021 End: 04-18-2022 History SDOH Food Worry 1 [facility] Start: 01-16-2021 End: 04-18-2022 History SDOH Transport Med 2 [facility] Start: 04-02-2022 End: 04-12-2022 Exposure to SARS-CoV-2 (event) Not sure [facility] Start: 08-14-2021 End: 04-22-2022 Alcohol intake Ex-drinker (finding) [facility] Start: 08-14-2021 End: 04-22-2022 Alcohol intake [facility] Clinical Notes 08-13-2021 to 04-22-2022 Assessment & [...] UTD, due May 2022 with OBGYN STI: fdc monogamous relationship with 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 Vaccines: UTD Continued work on healthy diet and consistent aerobic exercise (minimum 150 minutes weekly) were suggested and discussed - already doing well. [facility] 04-22-2022 Miscellaneous Notes Associate d Problem(s): Encounter for well adult exam with abnormal findings Labs as ordered No current anxiety or depression (PHQ9: 0) No substance abuse concerns. Pap Smear: UTD, due May 2022 with OBGYN STI: intermediate manager monogamous relationship with 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 Vaccines: UTD [...] in separate encounter documented in this encounter [facility] 04-22-2022 Miscellaneous Notes Associate d Problem(s): Encounter for well adult exam with abnormal findings Labs as ordered No current anxiety or depression (PHQ9: 0) No substance abuse concerns. Pap Smear: UTD, due May 2022 with OBGYN STI: intermediate manager monogamous relationship with 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 Vaccines: UTD [...] in separate encounter documented in this encounter [facility] 04-22-2022 Evaluation + Plan note Associ ated Problem(s): Rectal bleeding Intermittent, every couple weeks Likely hemorrhoids in setting of recent and IBS-D Offered exam, pt respectfully declined Discussed limiting time spent on toilet, avoidance of straining, topical OTC options She would like new referral to GI as hers has left - placed order in separate encounter [facility] 04-18-2022 History of Presen t illness Narrative [...] UTD, due May 2022 with OBGYN STI: intermediate manager monogamous relationship with 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 Vaccines: UTD [...] SECTION; Surgeon: Willie Nash Jr., MD; Location: [facility] OR; Service: OBGYN WISDOM TOOTH EXTRACTION Allergies: [...] rashes or discoloration. documented in this encounter [facility] 04-18-2022 History of Presen t illness Narrative [...] UTD, due May 2022 with OBGYN STI: intermediate manager monogamous relationship with 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 Vaccines: UTD [...] SECTION; Surgeon: Willie Nash Jr., MD; Location: [facility] OB OR; Service: OBGYN WISDOM TOOTH [...] rashes or discoloration. documented in this encounter [facility] 08-15-2021 Miscellaneous Notes A guide to Caring [...] note was copied from a baby's chart. it web development consultant (LC) called to patient room [...] Apgars: 8/9 Discharge Date: TBD JAY TORRES [id number] 1990 DATE OPERATIVE REPORT SURGEON WILLIE NASH [...] condition. MD Ritika CASPER JR 08/13/2021 01:11 [id number] T 08/13/2021 05:00 CAK/MODL Section Delivery Note Diagnosis: Principal Problem: Amniotic fluid leaking Mother's Information Delivery Blood Loss 08/12/21 0200 - 08/13/21 0112 Quantitative Blood Loss - Delivery (mL) Hospital Encounter 676 mL Total 676 mL Rodo Torres [[id number]] Delivery Anesthesia Method: Epidural Operative Delivery Forceps attempted?: No Vacuum extractor attempted?: No [place] Presentation Presentation: Vertex Information date/time: 08/13/217 Gender: Female Delivery type: , Low Transverse Delivery location: OB Unit Initial disposition: Routine NB Care ?: No Details: Trial of labor?: No categorization: Primary priority: Unscheduled Indications for : Failure to Progress Skin incision type: Pfannenstiel Delivery Providers Delivering clinician: Willie Nash Jr., MD Other personnel: Provider Role Covering Attending Resident Jayda Gibson CNM Milling Machine Tender Chasity Mccarthy RN Delivery Nurse Neelima Solis RN Registered Nurse Delivery Assist Sejal Saltzmann, MANAGER COUNCIL Nurse Practitioner Cord Vessels: 3 vessels Complications: [...] (31 y.o.) Date of Service: 08/13/2021 CSN: [id number] Procedure(s): SECTION Pre-Operative Diagnoses: * Failure to Progress Post-Operative Diagnoses: * Same as Pre-Op Diagnosis Surgeon(s) and Role: * Willie Nash Jr., MD - Primary * Jayad Gibson CNM - Assisting Anesthesiologist: Martina Wright MD VP PROJECT: Kristopher Mcpherson CRNA Waiter/Waitress Room Service: Chasity Mccarthy RN Scrub Person: ST Oniel [...] continue to monitor closely and continue POC. VP PROJECT at bedside for epidural Pt ambulated from Triage 4 to L&D rm 2311 with S/O and RN. Orders for pitocin. at 40+6 presents c/o SROM around 0200. Clear fluid noted. Ctx q10 minutes. +FM. documented in this encounter [facility] 08-15-2021 Hospital course Narrative DISCHARGE SUMMARY Patient: Jay Torres Date of : 1990 Site: [facility] Provider: Elisha Ballard CNP Admit Date: [...] Physician(s) Family Provider: Elisha Ballard CNP, Address: [address] [place] [address] [address] / [facility] [address] Follow Up: No follow-up provider specified. Additional Information: Patient instructions, including activity, were given to the patient/family at discharge. Please see the After Visit Summary in the electronic medical record for details. Time spent on discharge: < 30 minutes Completed by: Katya Edwards MD on 08/15/21, 9:05 AM documented in this encounter [facility] 08-15-2021 History of Presen t illness Narrative POD#2 doing well af vss inc: c/d/i release home later today or tomorrow 31 yo POD1 LTCS. Doing well, pain controlled. Mod lochia. . AFVSS abd soft, ATTP, incision c/d/i. Postop hgb 10. Circled spots of serous appearing drainage on coverlet PHYSICAL EDUCATION DEPARTMENT CHAIR NOTE Diagnosis: primary for failure to progress Surgeon: Willie Nash MD [employer] Vice Principal: Jayda Gibson CNM Pt has been unchanged for 6 H @ 6cm with adequate labor and desires to proceed with . Consent given [facility] TRIAGE NOTE Chief Complaint Patient presents [...] for IP care documented in this encounter [facility] 08-13-2021 History and physi atul note 31 yo @ 40W6D with ROM H+p reviewed and no changes made documented in this encounter [facility] [...] for lipid disorders [facility] Attachments The following attachments cannot be sent through Care Everywhere. * Section: Post-op ([place]ruguayan) [facility]* Attachments The following attachments cannot be sent through Care Everywhere. * Rectal Bleeding ([place]ruguayan) * Hemorrhoids ([place]ruguayan) [facility]* Attachments The following attachments cannot be sent through Care Everywhere. * Rectal Bleeding ([place]ruguayan) * Hemorrhoids ([place]) [facility] Reason for Referral Status Reason Specialty Diagnoses / Procedures Referred By Contact Referred To Contact Authorized Specialty Services Required/Patie nt's Best Interest Gastroenterology Diagnoses Diarrhea, unspecified type Elisha Ballard CNP [address] [place] [address] [place] [address] Instructions * Patient Instructions* Elisha Ballard CNP [...] The doctor may recommend that you take mdqg-pkw-eovykcg medicine, such as loperamide (Imodium), if you [...] Log into your personal health record on [email or web address] and enter W335 in the Education box to learn more about Diarrhea: Care Instructions. Current as of: August 10, 2018 Content Version: 11.9 9145-0745 [employer]. Care instructions adapted under license by your healthcare professional. If you have questions about a medical condition or this instruction, always ask your healthcare professional. [employer] disclaims any warranty or liability for your [...] you are older than 45 and are -[place] or have a father or brother who got prostatecancer when he was younger than 65. When should you call for help? Watch closely for changes in your health, and be sure to contact your doctor if you have any problems or symptoms that concern you. Where can you learn more? Log into your personal health record on [email or web address] and enter P072 in the Education box to learn more about Well Visit, Ages 18 to 50: Care Instructions. Current as of: February 12, 2018 Content Version: 11.9 1244-5174 [employer]. Care instructions adapted under license by your healthcare professional. If you have questions about a medical condition or this instruction, always ask your healthcare professional. [employer] disclaims any warranty or liability for your [...] breath. For a Fever Take a fever power cleaner operator. If you choose to or if your fever is very high, you can take a fever power cleaner operator.Acetaminophen is what is usually recommended. While ibuprofen is also a fever power cleaner operator, there is some concern that it may [...] Log into your personal health record on [email or web address] and enter M375 in the Education box to learn more about Learning About Hypoxemia. Current as of: April 26, 2019 Content Version: 12.3 7912-9471 [employer]. Care instructions adapted under license by your healthcare professional. If you have questions about a medical condition or this instruction, always ask your healthcare professional. [employer] disclaims any warranty or liability for your use of this information. [facility] COVID-19 Post-swabbing Instructions We will do our best to update you as soon as we receive your test results, but if we had to send your test to be run at the lab, you may see the results on [facility] or receive a call from [facility] before we are able to contact [...] face It is not recommended by the [facility] to have another COVID-19 test done in [...] results. - If you have an active [facility] account, and your COVID-19 test is negative (not detected), then you will be notified through your [facility] account. You should call the urgent care if you have any further questions. - If your COVID-19 test is positive (detected), you will receive a phone call to discuss your results and answer any questions you might have at that time. Please make sure [facility] has your updated phone number so we can contact you. 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 CDC - https://www.cdc.gov/coronavirus/2019-ncov/index.html - https://www.cdc.gov/coronavirus/2019-ncov/md-pfy-yvu-sick/quarantine.html [facility] - Website: https://coronavirus.[place].gov/wps/portal/gov/covid-19/home - Hotline: 951-4-XWP-ODH (086-091-0998) [place]: https://blog.amcure/series/gqucw-71-grtlroebfys-toolkit/ documented in this encounter History of Present [...] date: Pt is due at next appt [employer] Abnormal pap? no : 0 Para: 0 [...] Carla Mercer, - 11/24/2019 11:32 AM EST [facility] [address] [facility] [id number] Jay Torres is here today for follow-up. [...] diarrhea she can use something like loperamide bpmo-fjf-meoaulp and we have discussed a titration and dosing of this as well Thank you very much for allowing me to participate in your patient's care and if you have any further questions please do not hesitate to call. Sincerely; Carla Mercer DO CC: No ref. provider found documented in this encounter* Jane Segovia PA-C - 10/24/2020 6:07 PM EST Patient Name: [facility] Location: Jay Torres [address] [place] [id number] Date Of : Date Of Visit: 1990 10/24/2020 MRN# Provider: [id number] Jane Segovia PA-C Chief Complaint Patient presents [...] breath. For a Fever Take a fever power cleaner operator. If you choose to or if your fever is very high, you can take a fever power cleaner operator.Acetaminophen is what is usually recommended. While ibuprofen is also a fever power cleaner operator, there is some concern that it may [...] Log into your personal health record on [email or web address].amcure and enter M375 in the Education box to learn more about Learning About Hypoxemia. Current as of: April 26, 2019 Content Version: 12.3 6645-8294 [employer]. Care instructions adapted under license by your healthcare professional. If you have questions about a medical condition or this instruction, always ask your healthcare professional. [employer] disclaims any warranty or liability for your use of this information. [facility] COVID-19 Post-swabbing Instructions We will do our best to update you as soon as we receive your test results, but if we had to send your test to be run at the lab, you may see the results on [facility] or receive a call from [facility] before we are able to contact [...] results. - If you have an active [facility] account, and your COVID-19 test is negative (not detected), then you will be notified through your [facility] account. You should call the urgent care if you have any further questions. - If your COVID-19 test is positive (detected), you will receive a phone call to discuss your results and answer any questions you might have at that time. Please make sure [facility] has your updated phone number so we can contact you. 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 CDC - https://www.cdc.gov/coronavirus/2019-ncov/index.html - https://www.cdc.gov/coronavirus/2019-ncov/xz-qzn-lcy-sick/quarantine.html [facility] - Website: https://coronavirus.[place].gov/wps/portal/gov/covid-19/home - Hotline: 569-0-LGP-ODH (487-545-1120) [facility]: https://blog.[employer].StoryBlender/series/wyvdy-51-ulbvuffoikt-toolkit/ documented in this encounter* Salma Guthrie DO [...] file Gets together: Not on file Attends samaritan service: Not on file Active member of [...] medications. SALMA GUTHRIE DO PGY3 Family Medicine [facility] * Wero Spicer MA - 01/16/2021 [...] Mercer, DO - 07/07/2019 10:25 AM EDT [facility] [address] [facility] [id number] Jay Torres is a 29 y.o. female [...] rash. She denies trying any type of eiqs-zeq-jfscyzs medicines for her symptoms at this point. [...] file Gets together: Not on file Attends samaritan service: Not on file Active member of [...] A total of 35 minutes were spent ikzb-cz-edsf with the patient during this encounter and [...] GABY This dictation has been transcribed via [employer] and has not been reviewed and may [...] FoundDocuments on File Type Date Recorded Patient Physician Locums Urgent Care Expl anation Advance Directives and Livin g Will 07/11/2019 6:18 PM Documents on File Type Date Recorded Patient Physician Locums Urgent Care Expl anation Advance Directives and Living Will Documents on File Type Date Recorded Patient Physician Locums Urgent Care Expl anation Advance Directives and Livin g Will 07/11/2019 6:18 PM Documents on File Type Date Recorded Patient Physician Locums Urgent Care Expl anation Advance Directives and Livin g [...] Everywhere. * Exposure: Blood and Body Fluids ([place]) * [place] ED BODY FLUID EXPOSURE documented [...] Gastroenterology Diagnoses Diarrhea, unspecified type Elisha Ballard, [facility] [address] [place] [address] Carla Mercer, DO [address] [place] [address] Reason Comments Body Fluid Exposure Status Reason Specialty Diagnoses / Procedures Referred By Contact Referred To Contact Pending Review Reason Comments Rupture of Membranes Specialty Diagnoses / Procedures Referred By Paolo ross Referred To Contact Diagnoses Amniotic fluid leaking Referral ID Status Reason Start Date Expiration Date Visits Re quested Visits Authorized [id number] 1 Reason Comments Annual Exam Had [...] DATE CREATED AUTHOR AUTHOR'S ORGANIZ ATION 10/25/2020 [facility] DATE CREATED AUTHOR AUTHOR'S ORGANIZ ATION 08/18/2021 [facility] DATE CREATED AUTHOR AUTHOR'S ORGANIZ ATION 04/21/2022 [facility] DATE CREATED AUTHOR AUTHOR'S ORGANIZ ATION 07/28/2022 [facility] Abdirizak Han, DO - 07/11/2019 6:02 PM EDTFawn Eddy RN - 07/11/2019 5:45 PM EDT ED Notes (unrecognized secti on and content) PCP: Elisha Ballard, [employer] Chief Complaint Patient presents with Body Fluid Exposure HPI: 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 Allergies: Allergies Allergen Reactions Penicillins Rash Medications: Jay Torres Home Medication Instructions Prior to Surgery [id number] Printed on:07/11/19 [id number] Medication Information Take last dose on Take [...] If indicated, administer prior to discharge. Provide [facility] vaccine information sheet(s) (VIS) for patient for [...]
Care Teams (unrecognized sec tion and content) Medart Operator Relationship Specialty Start Date End Date Edu Olivares MD [address] [place] [address] Dr [address] [place] [id number] PCP - PATRICIO Attributed Provider - Napanoch amprice 09/18/21 11/17/50 Lamin Freedman MD [address] [place] [address] Dr. [address] [place] [id number] PCP - General Family Medicine 04/18/22 Med[employer] Operator Relationship Specialty Start Date End Date Edu Olivares MD [address] [place] [address] Dr [address] [place] [id number] PCP - PATRICIO Attributed Provider - [employer] 09/18/21 11/17/50 Lamin Freedman MD [address] [place] [address] Dr. [address]eralta [address] [place] [id number] PCP - General Family Medicine 04/18/22 FOR [...] BE BASED ON THE PRIMARY CLINICAL RECORDS. [facility]. provides no warranty or guarantee of the accuracy or completeness of information in this document.
--- OUTSIDE RECORDS SUMMARY | 2024-01-04 05:56 | XMS RPT_ITS | CCD ---
Author Name Unknown Address [address] [place] [address] Organization [facility] Care Team Providers Care Repairer Wood Furniture Name Role Phone Elisha Ballard Primary Care Provider ELISHA BALLARD Primary Care Unavailable ABDIRIZAK HAN Attending Elisha Bennett Primary Care Provider Carla Carter Primary Care Provider Elisha Ballard Unavailable JANE SEGOVIA Attending UnavailCARLA Wang Primary Care Unavailable Salma Guthrie Primary Care Provider [phone] No, Physician Primary Care Provider UnavailElisha Christie CNP Primary Care Provider KATYA EDWARDS Admitting WILLIE García Attending Unavailable ELISHA BALLARD Primary Care Unavailable KATYA EDWARDS Attending Joyce garcia [facility] onsulting Unavailable WILLIE NASH Admitting Unavailable ELISHA BALLARD Primary Care Unavailable KATYA EDWARDS Attending KATYA Pendleton Referring SALMA Jacobs Primary Care Unavailable ELIU DIAZ Admitting Unavailable LAMIN FREEDAMN Attending Unavailable LAMIN FREEDMAN Primary Care Unavailable [...] Propensity to adverse reactions to drug 08-30-2016 [facility] (3 sources) Penicillins Propensity to adverse reactions to drug 08-30-2016 [facility] Medications Current Medications Medication Drug Class(es) [...] 160 cm Lamin Freedman MD Work Phone: [facility] 04-18-2022 08:45-0400 Body mass index (BMI) [Ratio] 26.57 kg/m2 Lamin Freedman MD Work Phone: [facility] 04-18-2022 08:45-0400 Body temperature 98.4 [degF] Lamin Freedman MD Work Phone: [facility] 04-18-2022 08:45-0400 Body weight 68.04 kg Lamin Freedman MD Work Phone: [facility] 04-18-2022 08:45-0400 Diastolic blood pressure 85 mm[Hg] Lamin Freedman MD Work Phone: [facility] 04-18-2022 08:45-0400 Heart rate 83 /min Lamin Freedman MD Work Phone: [facility] 04-18-2022 08:45-0400 SaO2% (BldA) [Mass fraction] 98 % Lamin Freedman MD Work Phone: [facility] 04-18-2022 08:45-0400 Systolic blood pressure 130 mm[Hg] Lamin Freedman MD Work Phone: [facility] 08-15-2021 08:00-0400 Body temperature 98.1 [degF] Katya Edwards MD Work Phone: [facility] 08-15-2021 08:00-0400 Diastolic blood pressure 85 mm[Hg] Katya Edwarsd MD Work Phone: [facility] 08-15-2021 08:00-0400 Heart rate 101 /min Katya Edwards MD Work Phone: [facility] 08-15-2021 08:00-0400 Respiratory rate 16 /min Katya Edwards MD Work Phone: [facility] 08-15-2021 08:00-0400 SaO2% (BldA) [Mass fraction] 97 % Katya Edwards MD Work Phone: [facility] 08-15-2021 08:00-0400 Systolic blood pressure 135 mm[Hg] Katya Yost Work Phone: [facility] 08-12-2021 08:04-0400 Body height 160 cm Katya Edwards MD Work Phone: [facility] 08-12-2021 08:04-0400 Body mass index (BMI) [Ratio] 33.13 kg/m2 Katya Edwards MD Work Phone: [facility] 08-12-2021 08:04-0400 Body weight 84.82 kg Katya Edwards MD Work Phone: [facility] 01-16-2021 08:14-0500 BMI (Body Mass Index) 28.34 kg/m2 [facility]-16-[facility]21 08:14-0500 Body Temperature 97 [degF] Penrose [...] BMI (Body Mass Index) 25.69 kg/m2 [facility]2020 17:48-0500 Body Temperature 98.1 [degF] [facility] 17:48-0500 Body [facility] 65.77 [facility] 10-24-2020 17:48-0500 Height 160 [facility]-2020 17:48-0500 Pulse (Heart Rate) 92 /min Jane Segovia [facility] 10-24-2020 17:48-0500 Pulse Oximetry 99 % Jane Segovia [facility] 11-24-2019 11:17-0500 BMI (Body Mass Index) 29.14 kg/m2 [facility] 11-24-2019 11:17-0500 Body weight 72.26 kg [facility] 11-24-2019 11:17-0500 BP Diastolic 83 mm[Hg] [facility] 11-24-2019 11:17-0500 BP Systolic 130 mm[Hg] [facility] 11-24-2019 11:17-0500 Pulse (Heart Rate) 87 /min [facility] 07-11-2019 18:21-0400 Body Temperature 98.4 [degF] [facility] 07-11-2019 18:21-0400 BP Diastolic 90 mm[Hg] [facility] 07-11-2019 18:21-0400 BP Systolic 131 mm[Hg] [facility] 07-11-2019 18:21-0400 Pulse (Heart Rate) 79 /min [facility] 07-11-2019 18:21-0400 Pulse Oximetry 97 % [facility] 07-11-2019 18:21-0400 Respiratory Rate 16 /min [facility] 07-07-2019 09:15-0400 BMI (Body Mass Index) 28.28 kg/m2 [facility] 07-07-2019 09:15-0400 Body weight 70.13 kg [facility] 07-07-2019 09:15-0400 BP Diastolic 85 mm[Hg] [facility] 07-07-2019 09:15-0400 BP Systolic 128 mm[Hg] [facility] 07-07-2019 09:15-0400 Pulse (Heart Rate) 83 /min [facility] 12-23-2018 13:16-0500 BMI (Body Mass Index) 28.29 kg/m2 Elisha Ballard [facility] 12-23-2018 13:16-0500 Body Temperature 97.59 [degF] Elisha Blalard [facility] 12-23-2018 13:16-0500 BP Diastolic 89 mm[Hg] Elisha Ballard [facility] 12-23-2018 13:16-0500 BP Systolic 134 mm[Hg] Elisha Ballard [facility] 12-23-2018 13:16-0500 Height 157.5 cm Elisha Ballard [facility] 12-23-2018 13:16-0500 Pulse (Heart Rate) 95 /min Elisha Ballard [facility] 12-23-2018 13:16-0500 Pulse Oximetry 99 % Elishabalbir Ballard [facility] 12-23-2018 13:16-0500 Weight 70.15 kg Elisha Elio [facility] Encounters Encounter Date Encounter Type Care Provider Facility Start: 07-25-2022 End: 07-25-2022 [facility] Start: 07-25-2022 End: 07-29-2022 [facility] Start: 04-22-2022 Patient encounter status Lamin Freedman MD Work Phone: [facility] Work Phone: Start: 04-18-2022 End: 04-22-2022 ambulatory LAMIN J [facility] Start: 04-18-2022 End: 04-22-2022 ambulatory [facility] Start: 04-18-2022 End: 04-18-2022 Patient encounter status Lamin Freedman MD Work Phone: [facility] Start: 04-18-2022 End: 04-18-2022 Periodic preventive med est patient 18-39 yrs Lamin Freedman MD Work Phone: [facility] Procedures Date Procedure [...] Activity Detail Author Start: 12-23-2028 Tetanus vaccination [facility] Start: 04-18-2023 Depression screening using PHQ-9 (Patient Health Questionnaire 9) score Depression Screening (PHQ-2/9) [facility] Start: 04-18-2023 History and physical examination, annual for health maintenance Wellness Visit [facility] Start: 05-01-2022 Screening for malignant neoplasm of cervix PAP SMEAR [facility] Start: 01-16-2022 History and physical examination, annual for health maintenance Wellness Visit [facility] Start: 01-17-2021 End: 01-17-2021 Office Visit 01/17/2021 Office Visit Primary Care Elisha Ballard, BRINE WELL OPERATOR [address] [place] [address] [phone] [facility] Start: 12-15-2020 End: 12-15-2020 Immunization 12/15/2020 Immunization Primary Care Margaret John MD [address] [facility] [address] [place] [address] [phone] [facility] Start: 12-14-2020 COVID-19 Vaccine (2 of 2 - Moderna series) COVID-19 Vaccine (2 of 2 - Moderna series) [facility] Start: 12-14-2020 COVID-19 Vaccine (Moderna) (#2) COVID-19 Vaccine (Moderna) (#2) [facility] Start: 12-23-2019 History and physical examination, annual for health maintenance Wellness Visit [facility] Start: 10-06-2019 End: 10-06-2019 Office Visit 10/06/2019 Office Visit Gastroenterology Ruslan Carlasaundra Escobedo DO [address] [place] [address] [phone] [facility] Start: 07-19-2019 Influenza vaccination given SEQUENTIAL INFLUENZA VACCINE (#1) [facility] Start: 03-13-2019 Screening for malignant neoplasm of cervix PAP SMEAR [facility] Start: 07-19-2018 Influenza vaccination given SEQUENTIAL INFLUENZA VACCINE (#1) [facility] Start: 2003 Adolescent depression screening assessment Depression Screening (PHQ9) [facility] Start: 1991 Depression screening using PHQ-9 (Patient Health Questionnaire 9) score DEPRESSION SCREENING (PHQ9) [facility] Covid-19/Influenza Order Algorithm Covid-19/Influenza Order Algorithm Microbiology Routine Anosmia Contact With And (Suspected) Exposure To Other Viral Communicable Diseases Ordered: 10/24/2020 [facility] Immunizations Immunization Date Immunization Notes Care Provider Fa cility 09-18-2021 influenza virus vacc ine, unspecified formulation Lamin Freedman MD Work Phone: [facility] 09-18-2021 influenza, injectabl e, quadrivalent, preservative free Lamin Freedman MD Work Phone: [facility] 08-13-2021 varicella zoster imm une globulin Katya Edwards MD Work Phone: [facility] 08-13-2021 measles, mumps and r ubella virus vaccine Katya Edwards MD Work Phone: [facility] 08-13-2021 diphtheria, tetanus toxoids and acellular pertussis vaccine, unspecified formulation Katya Edwards MD Work Phone: [facility] 02-22-2021 Moderna SARS-CoV-2 Vaccination Rico Oes Pcp Amadou [facility] 11-16-2020 Moderna SARS-CoV-2 Vaccination Rosa Baig [facility] 09-20-2020 influenza virus vacc ine, unspecified formulation Salma Oberschmidt [facility] 12-22-2019 hepatitis A vaccine, adult dosage Idsarah Bernardo [facility] 12-22-2019 hepatitis A vaccine, unspecified formulation jose miguel Bernardo [facility] 08-21-2019 influenza virus vacc ine, unspecified formulation [facility] 12-23-2018 diphtheria, tetanus toxoids and acellular pertussis vaccine, unspecified formulation Elisha [facility] 12-23-2018 tetanus toxoid, redu ramos diphtheria toxoid, and acellular pertussis vaccine, adsorbed [facility] 07-03-2016 tuberculin skin test ; purified protein derivative solution, intradermal [facility] 09-17-2015 hepatitis B vaccine, adult dosage [facility] 07-14-2015 hepatitis B vaccine, adult dosage [facility] 11-26-2014 hepatitis B vaccine, adult dosage [facility] 09-01-2014 influenza, injectabl e, quadrivalent, preservative free [facility] 03-07-2012 hepatitis A vaccine, adult dosage [facility] 03-07-2012 poliovirus vaccine, inactivated [facility] 03-07-2012 typhoid capsular polysaccharide vaccine [facility] 03-07-2012 yellow fever vaccine [facility] 02-07-2010 hepatitis B vaccine, pediatric or [...] 2017 Unknown CARMINA BERMAN/PREF/O/PPO xxxxxxxxxxxx 2017-Present [id number] 2017 Unknown [id number] 2017 Unknown [id number] 2017 Unknown CARMINA BERMAN/PREF/HMO/PPO [id number] 2017-Present [phone] [address] [place] [address] [id number] 1991 Unknown [id number]. 902 1991 Unknown [id number]. 903 1991 Unknown [id number]. 902 1991 Unknown [id number]. 902 1991 Unknown [id number] [id number]. 902 1991 Unknown [id number] [id number]. 903 1991 Unknown [id number]. 900 1991 Unknown [id number]. 900 Worker's Compensation WORKER'S C OMP PENDING WORKERS COMPENSATION xxxxxxxxx Effective for all dates xxxxxxxxx [id number] Social History Date Type Detail Facility Start: 12-23-2018 End: 07-07-2019 Tobacco smoking status KYIS Never smoker [facility] Start: 1990 Sex Assigned At Not on file [facility] Start: 07-11-2019 End: 01-16-2021 Alcohol intake Current drinker of alcohol (finding) [facility] Start: 07-07-2019 End: 10-24-2020 Tobacco use and exposure Never used [facility] Exposure to SARS-CoV -2 (event) Yes [facility] Start: 01-16-2021 End: 04-18-2022 History [facility] Start: 01-16-2021 End: 04-18-2022 History SDOH Food Worry 1 [facility] Start: 01-16-2021 End: 04-18-2022 History SDOH Transport Med 2 [facility] Start: 04-02-2022 End: 04-12-2022 Exposure to SARS-CoV-2 (event) Not sure [facility] Start: 08-14-2021 End: 04-22-2022 Alcohol intake Ex-drinker (finding) [facility] Start: 08-14-2021 End: 04-22-2022 Alcohol intake [facility] Clinical Notes 08-13-2021 to 04-22-2022 Assessment [...] UTD, due May 2022 with OBGYN STI: chcf monogamous relationship with 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 Vaccines: UTD Continued work on healthy diet and consistent aerobic exercise (minimum 150 minutes weekly) were suggested and discussed - already doing well. [facility] 04-22-2022 Miscellaneous Notes Associate d Problem(s): Encounter for well adult exam with abnormal findings Labs as ordered No current anxiety or depression (PHQ9: 0) No substance abuse concerns. 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 Vaccines: UTD [...] in separate encounter documented in this encounter [facility] 04-22-2022 Miscellaneous Notes Associate d Problem(s): Encounter for well adult exam with abnormal findings Labs as ordered No current anxiety or depression (PHQ9: 0) No substance abuse concerns. 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 Vaccines: UTD [...] SECTION; Surgeon: Willie Nash Jr., MD; Location: [facility] OR; Service: OBGYN WISDOM TOOTH EXTRACTION Allergies: [...] rashes or discoloration. 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 Vaccines: UTD [...] SECTION; Surgeon: Willie Nash Jr., MD; Location: [facility] OB OR; Service: OBGYN WISDOM TOOTH [...] rashes or discoloration. documented in this encounter [facility] 08-15-2021 Miscellaneous Notes A guide to [...] note was copied from a baby's chart. bus info consultant (LC) called to patient room to [...] Apgars: 8/9 Discharge Date: TBD JAY TORRES [id number] 1990 DATE OPERATIVE REPORT SURGEON WILLIE NASH [...] condition. MD Ritika CASPER JR 08/13/2021 01:11 [id number] T 08/13/2021 05:00 CAK/MODL Section Delivery Note Diagnosis: Principal Problem: Amniotic fluid leaking Mother's Information Delivery Blood Loss 08/12/21 0200 - 08/13/21 0112 Quantitative Blood Loss - Delivery (mL) Hospital Encounter 676 mL Total 676 mL Rodo Torres [[id number]] Delivery Anesthesia Method: Epidural Operative Delivery Forceps attempted?: No Vacuum extractor attempted?: No Alexis Presentation Presentation: Vertex Information date/time: 08/13/217 Gender: Female Delivery type: , Low Transverse Delivery location: OB Unit Initial disposition: Routine NB Care ?: No Details: Trial of labor?: No categorization: Primary priority: Unscheduled Indications for : Failure to Progress Skin incision type: Pfannenstiel Delivery Providers Delivering clinician: Willie Nash Jr., MD Other personnel: Provider Role Covering Attending Resident Jayda Gibson CNM Master Cosmetologist Chasity Mccarthy RN Delivery Nurse Neelima Solis RN Registered Nurse Delivery Assist Sejal Saltzmann, BRINE WELL OPERATOR Nurse Practitioner Cord Vessels: 3 vessels Complications: [...] (31 y.o.) Date of Service: 08/13/2021 CSN: [id number] Procedure(s): SECTION Pre-Operative Diagnoses: * Failure to Progress Post-Operative Diagnoses: * Same as Pre-Op Diagnosis Surgeon(s) and Role: * Willie Nash Jr., MD - Primary * Jayda Gibson CNM - Assisting Anesthesiologist: Martina Wright MD SOCIAL WORKER: Kristopher Mcpherson CRNA Digital Commentator: Chasity Mccarthy RN Scrub Person: ST Oniel [...] continue to monitor closely and continue POC. SOCIAL WORKER at bedside for epidural Pt ambulated from Triage 4 to L&D rm 2311 with S/O and RN. Orders for pitocin. at 40+6 presents c/o SROM around 0200. Clear fluid noted. Ctx q10 minutes. +FM. documented in this encounter [facility] 08-15-2021 Hospital course Narrative DISCHARGE SUMMARY Patient: Jay Torres Date of : 1990 Site: [facility] Provider: Elisha Ballard CNP Admit Date: [...] Physician(s) Family Provider: Elisha Ballard CNP, Address: [address] [place] [address] Dr [address] / [facility] [address] Follow Up: No follow-up provider specified. Additional Information: Patient instructions, including activity, were given to the patient/family at discharge. Please see the After Visit Summary in the electronic medical record for details. Time spent on discharge: < 30 minutes Completed by: Katya Edwards MD on 08/15/21, 9:05 AM documented in this encounter [facility] 08-15-2021 History of Presen t illness Narrative POD#2 doing well af vss inc: c/d/i release home later today or tomorrow 31 yo POD1 LTCS. Doing well, pain controlled. Mod lochia. . AFVSS abd soft, ATTP, incision c/d/i. Postop hgb 10. Circled spots of serous appearing drainage on coverlet HEAD PASTRY CHEF NOTE Diagnosis: primary for failure to progress Surgeon: Willie Nash MD Decay Control Operator: Jayda Gibson CNM Pt has been unchanged for 6 H @ 6cm with adequate labor and desires to proceed with . Consent given [facility] TRIAGE NOTE Chief Complaint Patient presents [...] for IP care documented in this encounter [facility] 08-13-2021 History and physi atul note 31 yo @ 40W6D with ROM H+p reviewed and no changes made documented in this encounter [facility] [...] for lipid disorders [facility]* Attachments The following attachments cannot be sent through Care Everywhere. * Section: Post-op (Chadian) [facility]* Attachments The following attachments cannot be sent through Care Everywhere. * Rectal Bleeding (Chadian) * Hemorrhoids (Chadian) [facility]* Attachments The following attachments cannot be sent through Care Everywhere. * Rectal Bleeding (Chadian) * Hemorrhoids (Chadian) [facility] Reason for Referral Status Reason Specialty Diagnoses / Procedures Referred By Contact Referred To Contact Authorized Specialty Services Required/Patie nt's Best Interest Gastroenterology Diagnoses Diarrhea, unspecified type Elisha Ballard CNP [address] [place] [address] [place] [address] Instructions * Patient Instructions* Elisha Ballard CNP [...] The doctor may recommend that you take nmwp-hgl-jzuzsye medicine, such as loperamide (Imodium), if you [...] Log into your personal health record on [email or web address] and enter W335 in the Education box to learn more about Diarrhea: Care Instructions. Current as of: August 10, 2018 Content Version: 11.9 1156-7842 [employer]. Care instructions adapted under license by your healthcare professional. If you have questions about a medical condition or this instruction, always ask your healthcare professional. [employer] disclaims any warranty or liability for your [...] you are older than 45 and are -L[place] or have a father or brother who got prostatecancer when he was younger than 65. When should you call for help? Watch closely for changes in your health, and be sure to contact your doctor if you have any problems or symptoms that concern you. Where can you learn more? Log into your personal health record on [email or web address] and enter P072 in the Education box to learn more about Well Visit, Ages 18 to 50: Care Instructions. Current as of: February 12, 2018 Content Version: 11.9 3822-1447 [employer]. Care instructions adapted under license by your healthcare professional. If you have questions about a medical condition or this instruction, always ask your healthcare professional. [employer] disclaims any warranty or liability for your [...] breath. For a Fever Take a fever hand bunch maker. If you choose to or if your fever is very high, you can take a fever hand bunch maker.Acetaminophen is what is usually recommended. While ibuprofen is also a fever hand bunch maker, there is some concern that it may [...] Log into your personal health record on [email or web address] and enter M375 in the Education box to learn more about Learning About Hypoxemia. Current as of: April 26, 2019 Content Version: 12.3 1235-9593 [employer]. Care instructions adapted under license by your healthcare professional. If you have questions about a medical condition or this instruction, always ask your healthcare professional. [employer] disclaims any warranty or liability for your use of this information. [facility] COVID-19 Post-swabbing Instructions We will do our best to update you as soon as we receive your test results, but if we had to send your test to be run at the lab, you may see the results on PassportParking or receive a call from [facility] before we are able to contact you. [...] face It is not recommended by the [facility] to have another COVID-19 test done [...] results. - If you have an active [employer] account, and your COVID-19 test is negative (not detected), then you will be notified through your PassportPark[employer] account. You should call the urgent care if you have any further questions. - If your COVID-19 test is positive (detected), you will receive a phone call to discuss your results and answer any questions you might have at that time. Please make sure [facility] has your updated phone number so we can contact you. [facility] will notify the [facility] of any positive results to comply with [...] and warm water and/or alcohol based hand decorating machine tender, scrubbing your hands for at least 20 [...] Other COVID Questions? 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 no : 0 Para: 0 [...] Carla Mercer, - 11/24/2019 11:32 AM EST [facility] ICU [address] [facility] [id number] Jay Torres is here today for follow-up. [...] diarrhea she can use something like loperamide vjny-tfm-ykxfavy and we have discussed a titration and dosing of this as well Thank you very much for allowing me to participate in your patient's care and if you have any further questions please do not hesitate to call. Sincerely; Carla Mercer DO CC: No ref. provider found documented in this encounter* Jane Segovia PA-C - 10/24/2020 6:07 PM EST Patient Name: [facility] Location: [place] [address] [place] [id number] Date Of : Date Of Visit: 1990 10/24/2020 MRN# Provider: [id number] Jane Segovia PA-C Chief Complaint Patient presents [...] breath. For a Fever Take a fever hand bunch maker. If you choose to or if your fever is very high, you can take a fever hand bunch maker.Acetaminophen is what is usually recommended. While ibuprofen is also a fever hand bunch maker, there is some concern that it may [...] Log into your personal health record on [email or web address] and enter M375 in the Education box to learn more about Learning About Hypoxemia. Current as of: April 26, 2019 Content Version: 12.3 2814-8844 [employer]. Care instructions adapted under license by your healthcare professional. If you have questions about a medical condition or this instruction, always ask your healthcare professional. [employer] disclaims any warranty or liability for your use of this information. [facility] COVID-19 Post-swabbing Instructions We will do our best to update you as soon as we receive your test results, but if we had to send your test to be run at the lab, you may see the results on [employer]portParking or receive a call from [facility] before we are able to contact you. [...] results. - If you have an active [employer] account, and your COVID-19 test is negative (not detected), then you will be notified through your [employer]Park[employer] account. You should call the urgent care if you have any further questions. - If your COVID-19 test is positive (detected), you will receive a phone call to discuss your results and answer any questions you might have at that time. Please make sure [facility] [facility] has your updated phone number so we can contact you. [facility] will notify the [facility] of any positive results to comply with [...] and warm water and/or alcohol based hand decorating machine tender, scrubbing your hands for at least 20 [...] Other COVID Questions? CDC - https://www.cdc.gov/coronavirus/2019-ncov/index.html - https://www.cdc.gov/coronavirus/2019-ncov/wa-iwx-ado-sick/quarantine.html [facility] - Website: https://coronavirus.[place].gov/wps/portal/gov/covid-19/home - Hotline: 939-4-PSS-ODH (603-047-5520) [facility]: https://blog.[employer]/series/wpdzh-02-xiazuhjspmh-toolkit/ documented in this encounter* Salma Guthrie DO [...] file Gets together: Not on file Attends orthodox service: Not on file Active member of [...] medications. SALMA GUTHRIE DO PGY3 Family Medicine [facility] * Wero Spicer MA - 01/16/2021 8:15 [...] Mercer, DO - 07/07/2019 10:25 AM EDT [facility] [address] [facility] [id number] Jay Torres is a 29 y.o. female [...] rash. She denies trying any type of aslx-vum-cseamau medicines for her symptoms at this point. [...] file Gets together: Not on file Attends orthodox service: Not on file Active member of [...] A total of 35 minutes were spent [id number] with the patient during this encounter and [...] GABY This dictation has been transcribed via [employer] and has not been reviewed and may [...] FoundDocuments on File Type Date Recorded Patient Ore Fielder Expl anation Advance Directives and Livin g Will 07/11/2019 6:18 PM Documents on File Type Date Recorded Patient Ore Fielder Expl anation Advance Directives and Living Will Documents on File Type Date Recorded Patient Ore Fielder Expl anation Advance Directives and Livin g Will 07/11/2019 6:18 PM Documents on File Type Date Recorded Patient Ore Fielder Expl anation Advance Directives and Livin g [...] Everywhere. * Exposure: Blood and Body Fluids ([place]) * [place] [facility] BODY FLUID EXPOSURE documented [...] Gastroenterology Diagnoses Diarrhea, unspecified type Elisha Ballard, [facility] [address] [place] [address] Carla Mercer, DO [address] [place] [address] Reason Comments Body Fluid Exposure Status Reason Specialty Diagnoses / Procedures Referred By Contact Referred To Contact Pending Review Reason Comments Rupture of Membranes Specialty Diagnoses / Procedures Referred By Paolo ross Referred To Contact Diagnoses Amniotic fluid leaking Referral ID Status Reason Start Date Expiration Date Visits Re quested Visits Authorized [id number] 1 Reason Comments Annual Exam Had [...] DATE CREATED AUTHOR AUTHOR'S ORGANIZ ATION 10/25/2020 [facility] DATE CREATED AUTHOR AUTHOR'S ORGANIZ ATION 08/18/2021 [facility] DATE CREATED AUTHOR AUTHOR'S ORGANIZ ATION 04/21/2022 [facility] latory DATE CREATED AUTHOR AUTHOR'S ORGANIZ ATION 07/28/2022 [facility] Abdirizak Han, DO - 07/11/2019 6:02 PM EDTFawn Eddy RN - 07/11/2019 5:45 PM EDT ED Notes (unrecognized secti on and content) PCP: Elisha Ballard, [employer] Chief Complaint Patient presents with Body Fluid Exposure HPI: 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 Allergies: Allergies Allergen Reactions Penicillins Rash Medications: [place] Torres Home Medication Instructions Prior to Surgery [id number] Printed on:07/11/19 0799 Medication Information Take last dose on Take [...] If indicated, administer prior to discharge. Provide [facility] vaccine information sheet(s) (VIS) for patient [...]
Care Teams (unrecognized sec tion and content) [employer] Relationship Specialty Start Date End Date Edu Olivares MD [address] [place] [address] Dr [address] [place] [id number] PCP - PATRICIO Attributed Provider - [facility] 09/18/21 11/17/50 Lamin Freedman MD [address] [place] [address] Dr. [address] [place] [id number] PCP - General Family Medicine 04/18/22 [employer] Relationship Specialty Start Date End Date Edu Olivares MD [address] [place] [address] Dr [address] [place] [id number] PCP - PATRICIO Attributed Provider - [facility] 09/18/21 11/17/50 Lamin Freedman MD [address] [place] [address] Dr. [address] [place] [id number] PCP - General Family Medicine 04/18/22 FOR [...] BE BASED ON THE PRIMARY CLINICAL RECORDS. [facility]. provides no warranty or guarantee of the accuracy or completeness of information in this document.
== END 2024-01-04 16:00 | disposition home or self-care (01) ==
LOC: ED 01-04 01:30 → MS3 01-04 03:58 → AC 01-04 05:54 → MS3 01-04 05:54
PROVIDERS: Admitting Provider Surgery; Emergency Provider Emergency Medicine; PCP Family Medicine; Visit Provider Surgery
PROC: 0DTJ4ZZ Resection of Appendix, Percutaneous Endoscopic Approach (ICD-10-PCS; CPT 44970; principal; 2024-01-04 02:00)
DX: K35.80 Unspecified acute appendicitis (principal)
CPT/HCPCS: 44970; 00840; 74177; 80048; 81001; 84703; 85025; 88304; 96361; 96374; 96375; 96376; 99284; J7030; J7120; C1760; J0330; J0744; J2405

== ENCOUNTER 2024-01-10 20:52 | Emergency (ER) | payer OTHER, SELFPAY ==
[2024-01-10 20:53] VITALS: BP 137/82; PULSE 149; RESP 28; TEMP 36.2; O2SAT 95; BMI 28.3
--- NOTE | 2024-01-10 21:01 | CT_ITS ---
STUDY: CTA CHEST REASON FOR EXAM: Female, 33 years old. PE RADIATION DOSAGE (If Supplied By Facility): CTDIvol = ( 4.92 ) mGy, DLP = ( 171.31 ) mGycm TECHNIQUE: The examination was performed with the intravenous administration of IV 100mL Isovue-370. Post-processing of the angiographic images was performed, with multiplanar reformation and 3D reconstruction. Individualized dose optimization techniques were used for this CT. COMPARISON: None. FINDINGS: Normal enhancement of the main pulmonary artery and right and left pulmonary arteries. Normal enhancement of the bilateral peripheral pulmonary arteries. There is no demonstrated pulmonary embolism. Normal thoracic aorta and visualized great vessels. There is no demonstrated aortic dissection. Normal heart and pericardium. Normal mediastinum. Normal hilar regions. Normal visualized trachea and bronchi. The lungs are well expanded. Left lower lobe consolidation compatible with pneumonia. Remainder of the lung marte are clear. Normal pleura. Normal chest wall structures. There are degenerative changes of thoracic spine. There is a left liver lobe low attenuation structure measuring 2.3 cm most compatible with a liver cyst. Remainder of the visualized upper abdominal structures unremarkable. CT/CTA Chest W/WO Contrast IMPRESSION: Negative CTA chest examination, without a demonstrated pulmonary embolism or arterial dissection. Left lower lobe pneumonia. No pleural effusion or pneumothorax. Electronically Signed: Irma Montes MD at 22:18 EST ,
--- NOTE | 2024-01-10 21:02 | EKG12_ITS ---
Test Reason : DYSRHYTHMIA Blood Pressure : / mmHG Vent. Rate : 133 BPM Atrial Rate : 133 BPM P-R Int : 126 ms QRS Dur : 058 ms QT Int : 280 ms P-R-T Axes : 025 -06 002 degrees QTc Int : 416 ms Sinus tachycardia with occasional Premature ventricular complexes Otherwise normal ECG Confirmed by MIRELLA SANTILLAN, JADEN ([id number]), business editor JL MONTES DE OCA ([id number]) on 01/13/2024 9:44:37 AM Referred By: Confirmed By:JADEN VU MD
[2024-01-10] MEDS: Morphine 4 MG/ML Syringe IV (21:06)
[2024-01-10] MEDS: Ondansetron 4 MG/2 ML Vial IV (21:07)
--- OUTSIDE RECORDS SUMMARY | 2024-01-10 21:17 | XMS RPT_ITS | CCD ---
Author Name Unknown Address [address] [place] [address] Organization [facility] Care Team Providers Care Veterinary Surgery Technologist Name Role Phone Elisha Ballard Primary Care Provider [phone] ELISHA BALLARD Primary Care Unavailable ABDIRIZAK HAN Attending Elisha Bennett Primary Care Provider Carla Carter Primary Care Provider [phone] Elisha Ballard Unavailable JANE SEGOVIA Attending UnavailCARLA Wang Primary Care Unavailable Salma Guthrie Primary Care Provider [phone] No, Physician Primary Care Provider UnavailElisha Christie CNP Primary Care Provider KATYA EDWARDS Admitting WILLIE García Attending Unavailable ELISHA BALLARD Primary Care Unavailable KATYA EDWARDS Attending Joyce garcia [facility] onsulting Unavailable WILLIE NASH Admitting Unavailable ELISHA BALLARD Primary Care Unavailable KATYA EDWARDS Attending KATYA Pendleton Referring SALMA Jacobs Primary Care Unavailable ELIU DIAZ Admitting Unavailable LAMIN FREEDMAN Attending Unavailable LAMIN FREEDMAN Primary Care Unavailable Edu Olivares MD Unavailable [phone] Lamin Freedman MD Primary Care Provider LAMIN FREEDMAN Primary Care Unavailable JUAN DANIEL BURROWS Primary Care Unavailable MARGARET JOHN Admitting Unavail JUAN DANIEL Dvaidson Primary Care Unavailable MARGARET JOHN Attending Unavail able Allergies Allergy Classification Reported Allergen(s) Allergy Type Date of Onset Reaction(s) Facility (15 sources) Penicillins; Translations: [Unknown] Propensity to adverse reactions to drug 08-30-2016 [facility] (3 sources) Penicillins Propensity to adverse reactions to drug 08-30-2016 [facility] Medications Current Medications Medication Drug Class(es) [...] 160 cm Lamin Freedman MD Work Phone: [facility] 04-18-2022 08:45-0400 Body mass index (BMI) [Ratio] 26.57 kg/m2 Lamin Freedman MD Work Phone: [facility] 04-18-2022 08:45-0400 Body temperature 98.4 [degF] Lamin Freedman MD Work Phone: [facility] 04-18-2022 08:45-0400 Body weight 68.04 kg Lamin Freedman MD Work Phone: [facility] 04-18-2022 08:45-0400 Diastolic blood pressure 85 mm[Hg] Lamin Freedman MD Work Phone: [facility] 04-18-2022 08:45-0400 Heart rate 83 /min Lamin Freedman MD Work Phone: [facility] 04-18-2022 08:45-0400 SaO2% (BldA) [Mass fraction] 98 % Lamin Freedman MD Work Phone: [facility] 04-18-2022 08:45-0400 Systolic blood pressure 130 mm[Hg] Lamin Freedman MD Work Phone: [facility] 08-15-2021 08:00-0400 Body temperature 98.1 [degF] Katya Edwards MD Work Phone: [facility] 08-15-2021 08:00-0400 Diastolic blood pressure 85 mm[Hg] Katya Edwards MD Work Phone: [facility] 08-15-2021 08:00-0400 Heart rate 101 /min Katya Edwards MD Work Phone: [facility] 08-15-2021 08:00-0400 Respiratory rate 16 /min Katya Edwards MD Work Phone: [facility] 08-15-2021 08:00-0400 SaO2% (BldA) [Mass fraction] 97 % Katya Edwards MD Work Phone: [facility] 08-15-2021 08:00-0400 Systolic blood pressure 135 mm[Hg] Katya Yost Work Phone: [facility] 08-12-2021 08:04-0400 Body height 160 cm Katya Edwards MD Work Phone: [facility] 08-12-2021 08:04-0400 Body mass index (BMI) [Ratio] 33.13 kg/m2 Katya Edwards MD Work Phone: [facility] 08-12-2021 08:04-0400 Body weight 84.82 kg Katya Edwards MD Work Phone: [facility] 01-16-2021 08:14-0500 BMI (Body Mass Index) 28.34 kg/m2 [facility] 01-16-2021 08:14-0500 Body Temperature 97 [degF] [facility] 01-16-2021 08:14-0500 Body weight 72.[address] [facility] 01-16-2021 08:14-0500 BP Diastolic 79 mm[Hg] [facility] 01-16-2021 08:14-0500 BP Systolic 124 mm[Hg] [facility] 01-16-2021 08:14-[address] [facility] 01-16-2021 08:14-0500 Pulse (Heart Rate) 90 /min [facility] 01-16-2021 08:14-0500 Pulse Oximetry 99 % [facility] 10-24-2020 17:48-0500 BMI (Body Mass Index) 25.69 kg/m2 [facility] 17:48-0500 Body Temperature 98.1 [degF] [facility] 17:48-0500 Body [facility] 65.77 [facility] 10-24-2020 17:48-0500 Height 160 cm [facility]-24-2020 17:48-0500 Pulse (Heart Rate) 92 /min Jane Segovia [facility] 10-24-2020 17:48-0500 Pulse Oximetry 99 % Jane Segovia [facility] 11-24-2019 11:17-0500 BMI (Body Mass Index) 29.14 kg/m2 [facility] 11-24-2019 11:17-0500 Body weight 72.26 kg [facility] 11-24-2019 11:17-0500 BP Diastolic 83 mm[Hg] [facility] 11-24-2019 11:17-0500 BP Systolic 130 mm[Hg] [facility] 11-24-2019 11:17-0500 Pulse (Heart Rate) 87 /min [facility] 07-11-2019 18:21-0400 Body Temperature 98.4 [degF] [...] 09:15-0400 BMI (Body Mass Index) 28.28 kg/m2 [facility] 07-07-2019 09:15-0400 Body weight 70.13 kg [facility] 07-07-2019 09:15-0400 BP Diastolic 85 mm[Hg] [facility] 07-07-2019 09:15-0400 BP Systolic 128 mm[Hg] [facility] 07-07-2019 09:15-0400 Pulse (Heart Rate) 83 /min [facility] 12-23-2018 13:16-0500 BMI (Body Mass Index) 28.29 kg/m2 Elisha Ballard [facility] 12-23-2018 13:16-0500 Body Temperature 97.59 [degF] Elisha Ballard [facility] 12-23-2018 13:16-0500 BP Diastolic 89 mm[Hg] Elisha Ballard [facility] 12-23-2018 13:16-0500 BP Systolic 134 mm[Hg] Elisha Ballard [facility] 12-23-2018 13:16-0500 Height 157.5 cm Elisha Ballard [facility] 12-23-2018 13:16-0500 Pulse (Heart Rate) 95 /min Elisha Ballard [facility] 12-23-2018 13:16-0500 Pulse Oximetry 99 % Elishabalbir Ballard [facility] 12-23-2018 13:16-0500 Weight 70.15 kg Elisha Elio [facility] Encounters Encounter Date Encounter Type Care Provider Facility Start: 07-25-2022 End: 07-25-2022 [facility] Start: 07-25-2022 End: 07-29-2022 [facility] Start: 04-22-2022 Patient encounter status Lamin Freedman MD Work Phone: [facility] Work Phone: Start: 04-18-2022 End: 04-22-2022 ambulatory LAMIN J [facility] Start: 04-18-2022 End: 04-22-2022 [facility] Start: 04-18-2022 End: 04-18-2022 Patient encounter status Lamin Freedman MD Work Phone: [facility] Start: 04-18-2022 End: 04-18-2022 Periodic preventive med est patient 18-39 yrs Lamin Freedman MD Work Phone: [facility] Procedures Date Procedure [...] Activity Detail Author Start: 12-23-2028 Tetanus vaccination [facility] Start: 04-18-2023 Depression screening using PHQ-9 (Patient Health Questionnaire 9) score Depression Screening (PHQ-2/9) [facility] Start: 04-18-2023 History and physical examination, annual for health maintenance Wellness Visit [facility] Start: 05-01-2022 Screening for malignant neoplasm of cervix PAP SMEAR [facility] Start: 01-16-2022 History and physical examination, annual for health maintenance Wellness Visit [facility] Start: 01-17-2021 End: 01-17-2021 Office Visit 01/17/2021 Office Visit Primary Care Elisha Ballard, CONVERTER SUPERVISOR [address] [place] [address] [phone] [facility] Start: 12-15-2020 End: 12-15-2020 Immunization 12/15/2020 Immunization Primary Care Margaret John MD [address] [facility] [address] [place] [address] [phone] [facility] Start: 12-14-2020 COVID-19 Vaccine (2 of 2 - Moderna series) COVID-19 Vaccine (2 of 2 - Moderna series) [facility] Start: 12-14-2020 COVID-19 Vaccine (Moderna) (#2) COVID-19 Vaccine (Moderna) (#2) [facility] Start: 12-23-2019 History and physical examination, annual for health maintenance Wellness Visit [facility] Start: 10-06-2019 End: 10-06-2019 Office Visit 10/06/2019 Office Visit Gastroenterology Ruslan Carlasaundra Escobedo DO [address] [place] [address] [phone] [facility] Start: 07-19-2019 Influenza vaccination given SEQUENTIAL INFLUENZA VACCINE (#1) [facility] Start: 03-13-2019 Screening for malignant neoplasm of cervix PAP SMEAR [facility] Start: 07-19-2018 Influenza vaccination given SEQUENTIAL INFLUENZA VACCINE (#1) [facility] Start: 2003 Adolescent depression screening assessment Depression Screening (PHQ9) [facility] Start: 1991 Depression screening using PHQ-9 (Patient Health Questionnaire 9) score DEPRESSION SCREENING (PHQ9) [facility] Covid-19/Influenza Order Algorithm Covid-19/Influenza Order Algorithm Microbiology Routine Anosmia Contact With And (Suspected) Exposure To Other Viral Communicable Diseases Ordered: 10/24/2020 [facility] Immunizations Immunization Date Immunization Notes Care Provider Fa cility 09-18-2021 influenza virus vacc ine, unspecified formulation Lamin Freedman MD Work Phone: [facility] 09-18-2021 influenza, injectabl e, quadrivalent, preservative free Lamin Freedman MD Work Phone: [facility] 08-13-2021 varicella zoster imm une globulin Katya Edwards MD Work Phone: [facility] 08-13-2021 measles, mumps and r ubella virus vaccine Katya Edwards MD Work Phone: [facility] 08-13-2021 diphtheria, tetanus toxoids and acellular pertussis vaccine, unspecified formulation Katya Edwards MD Work Phone: [facility] 02-22-2021 Moderna SARS-CoV-2 Vaccination Rico Oes Pcp Amadou [facility] 11-16-2020 Moderna SARS-CoV-2 Vaccination Rosa Baig [facility] 09-20-2020 influenza virus vacc ine, unspecified formulation Salma Oberschmidt [facility] 12-22-2019 hepatitis A vaccine, adult dosage Ncsarah Bernardo [facility] 12-22-2019 hepatitis [facility], [facility] 08-21-2019 influenza virus vacc ine, unspecified formulation [facility] 12-23-2018 diphtheria, tetanus toxoids and acellular pertussis vaccine, unspecified formulation Elisha [facility] 12-23-2018 tetanus toxoid, redu ramos diphtheria toxoid, and acellular pertussis vaccine, adsorbed [facility] 07-03-2016 tuberculin skin test ; purified protein derivative solution, intradermal [facility] 09-17-2015 hepatitis B vaccine, adult dosage [facility] 07-14-2015 hepatitis B vaccine, adult dosage [facility] 11-26-2014 hepatitis B vaccine, adult dosage [facility] 09-01-2014 influenza, injectabl e, quadrivalent, preservative free [facility] 03-07-2012 hepatitis A vaccine, adult dosage [facility] 03-07-[address], [address] [facility] 03-07-[address] vaccine [facility] 03-07-2012 yellow fever vaccine [facility] 02-07-2010 hepatitis B vaccine, pediatric or pediatric/adolescent dosage [facility] 10-26-2009 hepatitis B vaccine, pediatric or pediatric/adolescent dosage [facility] 07-19-2009 hepatitis B vaccine, pediatric or pediatric/adolescent dosage [facility] 07-19-2009 meningococcal polysaccharide (groups A, C, Y and W-135) diphtheria toxoid conjugate vaccine (MCV4P) [facility] 07-19-2009 tetanus toxoid, redu ramos diphtheria toxoid, and acellular pertussis vaccine, adsorbed [facility] 02-23-1998 measles, mumps and r ubella virus vaccine [facility] 09-04-1995 diphtheria, tetanus toxoids and pertussis vaccine [facility] 09-04-1995 poliovirus vaccine, unspecified formulation [facility] 08-12-1992 diphtheria, tetanus toxoids and pertussis vaccine [facility] 04-25-1992 haemophilus influenz ae type b vaccine, conjugate unspecified formulation [facility] 04-25-1992 measles, mumps and r ubella virus vaccine [facility] 1991 diphtheria, tetanus toxoids and pertussis vaccine [facility] 1991 haemophilus influenz ae type b vaccine, conjugate unspecified formulation [facility] 1991 poliovirus vaccine, unspecified formulation [facility] 1991 diphtheria, tetanus toxoids and pertussis vaccine [facility] 1991 haemophilus influenz ae type b vaccine, conjugate unspecified formulation [facility] 1991 poliovirus vaccine, unspecified formulation [facility] 1991 diphtheria, tetanus toxoids and pertussis vaccine [facility] 1991 haemophilus influenz ae type b vaccine, conjugate unspecified formulation [facility] 1991 poliovirus vaccine, unspecified formulation [facility] Payers Date Payer Category Payer Worker's Compensation [id number] 2017 Unknown CARMINA BERMAN/PREF/O/PPO xxxxxxxxxxxx 2017-Present [id number] 2017 Unknown [id number] 2017 Unknown [id number] 2017 Unknown CARMINA BERMAN/PREF/HMO/PPO [id number] 2017-Present [phone] [address] [place] [address] [id number] 1991 Unknown [id number] 902 1991 Unknown [id number] 903 1991 Unknown [id number] 902 1991 Unknown [id number] 902 1991 Unknown [id number] 902 1991 Unknown [id number]. 903 1991 Unknown [id number] 900 1991 Unknown [id number] 900 Worker's Compensation WORKER'S C [employer] PENDING WORKERS COMPENSATION xxxxxxxxx Effective for all dates xxxxxxxxx [id number] Social History Date Type Detail Facility Start: 12-23-2018 End: 07-07-2019 Tobacco smoking status TXIS Never smoker [facility] Start: 1990 Sex Assigned At [facility] file [facility] Start: 07-11-2019 End: 01-16-2021 Alcohol intake Current drinker of alcohol (finding) [facility] Start: 07-07-2019 End: 10-24-2020 Tobacco use and exposure Never used [facility] Exposure to SARS-CoV -2 (event) Yes [facility] Start: 01-16-2021 End: 04-18-2022 History SDOH Financial 5 [facility] Start: 01-16-2021 End: 04-18-2022 History SDOH Food Worry 1 [facility] Start: 01-16-2021 End: 04-18-2022 History SDOH Transport Med 2 [facility] Start: 04-02-2022 End: 04-12-2022 Exposure to SARS-CoV-2 (event) Not sure [facility] Start: 08-14-2021 End: 04-22-2022 Alcohol intake Ex-drinker (finding) [facility] Start: 08-14-2021 End: 04-22-2022 Alcohol intake [facility] Clinical Notes 08-13-2021 to 04-22-2022 Assessment [...] due May 2022 with OBGYN STI: intermediate monogamous relationship with 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 Vaccines: UTD Continued work on healthy diet and consistent aerobic exercise (minimum 150 minutes weekly) were suggested and discussed - already doing well. [facility] 04-22-2022 Miscellaneous Notes Associate d Problem(s): Encounter for well adult exam with abnormal findings Labs as ordered No current anxiety or depression (PHQ9: 0) No substance abuse concerns. 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 Vaccines: UTD [...] in separate encounter documented in this encounter [facility] 04-22-2022 Miscellaneous Notes Associate d Problem(s): Encounter for well adult exam with abnormal findings Labs as ordered No current anxiety or depression (PHQ9: 0) No substance abuse concerns. 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 Vaccines: UTD [...] SECTION; Surgeon: Willie Nash Jr., MD; Location: [facility] OR; Service: OBGYN WISDOM TOOTH EXTRACTION [...] rashes or discoloration. 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 Vaccines: UTD [...] SECTION; Surgeon: Willie Nash Jr., MD; Location: [facility] OB OR; Service: OBGYN WISDOM TOOTH [...] rashes or discoloration. documented in this encounter [facility] 08-15-2021 Miscellaneous Notes A guide to [...] support/appointment as needed. Ongoing support offered per APRVIZ. Anesthesia Post-op Follow-up Note 2 Days Post-Op [...] note was copied from a baby's chart. independent crop consultant (LC) called to patient room to [...] Apgars: 8/9 Discharge Date: TBD JAY TORRES [id number] 1990 DATE OPERATIVE REPORT SURGEON WILLIE NASH [...] condition. MD Ritika CASPER JR 08/13/2021 01:11 [id number] T 08/13/2021 05:00 CAK/MODL Section Delivery Note Diagnosis: Principal Problem: Amniotic fluid leaking Mother's Information Delivery Blood Loss 08/12/21 0200 - 08/13/21 0112 Quantitative Blood Loss - Delivery (mL) Hospital Encounter 676 mL Total 676 mL Rodo Torres [[id number]] Delivery Anesthesia Method: Epidural Operative Delivery Forceps attempted?: No Vacuum extractor attempted?: No [place] Presentation Presentation: Vertex Information date/time: 08/13/217 Gender: Female Delivery type: , Low Transverse Delivery location: OB Unit Initial disposition: Routine NB Care ?: No Details: Trial of labor?: No categorization: Primary priority: Unscheduled Indications for : Failure to Progress Skin incision type: Pfannenstiel Delivery Providers Delivering clinician: Willie Nash Jr., MD Other personnel: Provider Role Covering Attending Resident Jayda Gibson CNM Office Admin Chasity Mccarthy RN Delivery Nurse Neelima Solis RN Registered Nurse Delivery Assist Sejal Saltzmann, CONVERTER SUPERVISOR Nurse Practitioner Cord Vessels: 3 vessels Complications: [...] (31 y.o.) Date of Service: 08/13/2021 CSN: [id number] Procedure(s): SECTION Pre-Operative Diagnoses: * Failure to Progress Post-Operative Diagnoses: * Same as Pre-Op Diagnosis Surgeon(s) and Role: * Willie Nash Jr., MD - Primary * Jayda Gibson CNM - Assisting Anesthesiologist: Martina Wright MD FROZEN FOOD SELECTOR: Kristopher Mcpherson CRNA Intermission Coordinator: Chasity Mccarthy RN Scrub Person: ST Oniel [...] continue to monitor closely and continue POC. FROZEN FOOD SELECTOR at bedside for epidural Pt ambulated from Triage 4 to L&D rm 2311 with S/O and RN. Orders for pitocin. at 40+6 presents c/o SROM around 0200. Clear fluid noted. Ctx q10 minutes. +FM. documented in this encounter [facility] 08-15-2021 Hospital course Narrative DISCHARGE SUMMARY Patient: Jay Torres Date of : 1990 Site: [facility] Provider: Elisha Ballard CNP Admit [...] Physician(s) Family Provider: Elisha Ballard CNP, Address: [address] [place] [address] [address] / [facility] [address] Follow Up: No follow-up provider specified. Additional Information: Patient instructions, including activity, were given to the patient/family at discharge. Please see the After Visit Summary in the electronic medical record for details. Time spent on discharge: < 30 minutes Completed by: Katya Edwards MD on 08/15/21, 9:05 AM documented in this encounter [facility] 08-15-2021 History of Presen t illness Narrative POD#2 doing well af vss inc: c/d/i release home later today or tomorrow 31 yo POD1 LTCS. Doing well, pain controlled. Mod lochia. . AFVSS abd soft, ATTP, incision c/d/i. Postop hgb 10. Circled spots of serous appearing drainage on coverlet [employer] SPECIAL EVENT ASSOCIATE NOTE Diagnosis: primary for failure to progress Surgeon: Willie Nash MD Mechatronics Technician: Jayda Gibson CNM Pt has been unchanged for 6 H @ 6cm with adequate labor and desires to proceed with . Consent given [facility] TRIAGE NOTE Chief Complaint Patient presents [...] for IP care documented in this encounter [facility] 08-13-2021 History and physi atul note 31 yo @ 40W6D with ROM H+p reviewed and no changes made documented in this encounter [facility] [...] for lipid disorders [facility] Attachments The following attachments cannot be sent through Care Everywhere. * Section: Post-op (Spanish) [facility]* Attachments The following attachments cannot be sent through Care Everywhere. * Rectal Bleeding (Spanish) * Hemorrhoids (Spanish) [facility]* Attachments The following attachments cannot be sent through Care Everywhere. * Rectal Bleeding (Spanish) * Hemorrhoids (Spanish) [facility] Reason for Referral Status Reason Specialty Diagnoses / Procedures Referred By Contact Referred To Contact Authorized Specialty Services Required/Patie nt's Best Interest Gastroenterology Diagnoses Diarrhea, unspecified type Elisha Ballard CNP [address] [place] [address] [place] [address] Instructions * Patient Instructions* Elisha Ballard CNP [...] The doctor may recommend that you take melj-oxm-xnamvtk medicine, such as loperamide (Imodium), if you [...] Log into your personal health record on [email or web address]://[email or web address] [email or web address] and enter W335 in the Education box to learn more about Diarrhea: Care Instructions. Current as of: August 10, 2018 Content Version: 11.9 0707-9056 [employer]. Care instructions adapted under license by your healthcare professional. If you have questions about a medical condition or this instruction, always ask your healthcare professional. [employer] disclaims any warranty or liability for your [...] you are older than 45 and are -Danish or have a father or brother who got prostatecancer when he was younger than 65. When should you call for help? Watch closely for changes in your health, and be sure to contact your doctor if you have any problems or symptoms that concern you. Where can you learn more? Log into your personal health record on [email or web address] and enter P072 in the Education box to learn more about Well Visit, Ages 18 to 50: Care Instructions. Current as of: February 12, 2018 Content Version: 11.9 2626-9351 [employer]. Care instructions adapted under license by your healthcare professional. If you have questions about a medical condition or this instruction, always ask your healthcare professional. [employer] disclaims any warranty or liability for your [...] breath. For a Fever Take a fever proof clerk. If you choose to or if your fever is very high, you can take a fever proof clerk.Acetaminophen is what is usually recommended. While ibuprofen is also a fever proof clerk, there is some concern that it may [...] Log into your personal health record on [email or web address] and enter M375 in the Education box to learn more about Learning About Hypoxemia. Current as of: April 26, 2019 Content Version: 12.3 4289-6608 [employer]. Care instructions adapted under license by your healthcare professional. If you have questions about a medical condition or this instruction, always ask your healthcare professional. [employer] disclaims any warranty or liability for your use of this information. [facility] COVID-19 Post-swabbing Instructions We will do our best to update you as soon as we receive your test results, but if we had to send your test to be run at the lab, you may see the results on fundfindr or receive a call from [facility] before we are able to contact you. [...] face It is not recommended by the [facility] to have another COVID-19 test done in [...] results. - If you have an active fundfindr account, and your COVID-19 test is negative (not detected), then you will be notified through your fundfindr account. You should call the urgent care if you have any further questions. - If your COVID-19 test is positive (detected), you will receive a phone call to discuss your results and answer any questions you might have at that time. Please make sure [facility] has your updated phone number so we can contact you. 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 no : 0 Para: 0 [...] Carla Mercer, - 11/24/2019 11:32 AM EST [facility] ICU [address] [id number] Jay Torres is here today for follow-up. [...] diarrhea she can use something like loperamide [id number] and we have discussed a titration and dosing of this as well Thank you very much for allowing me to participate in your patient's care and if you have any further questions please do not hesitate to call. Sincerely; Carla Mercer DO CC: No ref. provider found documented in this encounter* Jane Segovia PA-C - 10/24/2020 6:07 PM EST Patient Name: [facility] Location: Jay Torres [address] [place] [id number] Date Of : Date Of Visit: 1990 10/24/2020 MRN# Provider: [id number] Jane Segovia PA-C Chief Complaint Patient presents [...] breath. For a Fever Take a fever proof clerk. If you choose to or if your fever is very high, you can take a fever proof clerk.Acetaminophen is what is usually recommended. While ibuprofen is also a fever proof clerk, there is some concern that it may [...] Log into your personal health record on https://fundfindr.[employer] and enter M375 in the Education box to learn more about Learning About Hypoxemia. Current as of: April 26, 2019 Content Version: 12.3 8204-8421 [employer]. Care instructions adapted under license by your healthcare professional. If you have questions about a medical condition or this instruction, always ask your healthcare professional. [employer] disclaims any warranty or liability for your use of this information. [facility] COVID-19 Post-swabbing Instructions We will do our best to update you as soon as we receive your test results, but if we had to send your test to be run at the lab, you may see the results on fundfindr or receive a call from [facility] before we are able to contact you. [...] results. - If you have an active fundfindr account, and your COVID-19 test is negative (not detected), then you will be notified through your fundfindr account. You should call the urgent care if you have any further questions. - If your COVID-19 test is positive (detected), you will receive a phone call to discuss your results and answer any questions you might have at that time. Please make sure [facility] has your updated phone number so we can contact you. 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 CDC - https://www.cdc.gov/coronavirus/2019-ncov/index.html - https://www.cdc.gov/coronavirus/2019-ncov/cq-vxy-fjo-sick/quarantine.html [facility] - Website: https://coronavirus.[place].gov/wps/portal/gov/covid-19/home - Hotline: 935-6-UGH-ODH (378-707-3711) [facility]: https://blog.[employer]/series/sxrdv-62-ocjpjronwuh-toolkit/ documented in this encounter* Salma Guthrie DO [...] file Gets together: Not on file Attends amish service: Not on file Active member of [...] medications. SALMA GUTHRIE DO PGY3 Family Medicine [facility] * Wero Spicer MA - 01/16/2021 [...] Mercer, DO - 07/07/2019 10:25 AM EDT [facility] [address] [id number] Jay Torres is a 29 y.o. female here today for evaluation of Diarrhea HPI: Jay Torres is a 29 y.o. female being evaluated for diarrhea. Jya reports that her symptoms havebeen ongoing now [...] rash. She denies trying any type of zofl-tdq-efwfjux medicines for her symptoms at this point. [...] file Gets together: Not on file Attends amish service: Not on file Active member of [...] A total of 35 minutes were spent [id number] with the patient during this encounter and [...] GABY This dictation has been transcribed via [employer] and has not been reviewed and may [...] FoundDocuments on File Type Date Recorded Patient Gem Carver Expl anation Advance Directives and Livin g Will 07/11/2019 6:18 PM Documents on File Type Date Recorded Patient Gem Carver Expl anation Advance Directives and Living Will Documents on File Type Date Recorded Patient Gem Carver Expl anation Advance Directives and Livin g Will 07/11/2019 6:18 PM Documents on File Type Date Recorded Patient Gem Carver Expl anation Advance Directives and Livin g [...] Everywhere. * Exposure: Blood and Body Fluids (Spanish) * [place] ED BODY FLUID EXPOSURE documented [...] Gastroenterology Diagnoses Diarrhea, unspecified type Elisha Ballard, [facility] [address] [place] [address] Carla Mercer, DO [address] [place] [address] Reason Comments Body Fluid Exposure Status Reason Specialty Diagnoses / Procedures Referred By Contact Referred To Contact Pending Review Reason Comments Rupture of Membranes Specialty Diagnoses / Procedures Referred By Paolo ross Referred To Contact Diagnoses Amniotic fluid leaking Referral ID Status Reason Start Date Expiration Date Visits Re quested Visits Authorized [id number] 1 1 Reason Comments Annual Exam Had [...] DATE CREATED AUTHOR AUTHOR'S ORGANIZ ATION 10/25/2020 [facility] DATE CREATED AUTHOR AUTHOR'S ORGANIZ ATION 08/18/2021 [facility] DATE CREATED AUTHOR AUTHOR'S ORGANIZ ATION 04/21/2022 [facility] latory DATE CREATED AUTHOR AUTHOR'S ORGANIZ ATION 07/28/2022 [facility] Abdirizak Han, DO - 07/11/2019 6:02 PM EDTFawn Eddy RN - 07/11/2019 5:45 PM EDT ED Notes (unrecognized secti on and content) PCP: Elisha Ballard, CONVERTER SUPERVISOR Chief Complaint Patient presents with Body Fluid Exposure HPI: 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 Allergies: Allergies Allergen Reactions Penicillins Rash Medications: Jay Torres Home Medication Instructions Prior to Surgery [id number] Printed on:07/11/19 3468 Medication Information Take last dose on Take [...] Provider: Yadira Varma RN)2041 (Given - Provider: Suasn Ernst, MARIBELL) 0838 (Given - Provider: Ritu [...] If indicated, administer prior to discharge. Provide [facility] vaccine information sheet(s) (VIS) for patient for [...]
Care Teams (unrecognized sec tion and content) Veterinary Surgery Technologist Relationship Specialty Start Date End Date Edu Olivares MD [address] [place] [address] Dr [address] [place] [id number] PCP - PATRICIO Attributed Provider - [employer] 09/18/21 11/17/50 Lamin Freedman MD [address] [place] [address] Dr. [address] [place] [id number] PCP - General Family Medicine 04/18/22 Veterinary Surgery Technologist Relationship Specialty Start Date End Date Edu Olivares MD [address] [place] [address] Dr [address] [place] [phone] PCP - PATRICIO Attributed Provider - [employer] 09/18/21 11/17/50 Lamin Freedman MD [address] [place] [address] Dr. [address]ta [address] [place] [id number] PCP - General Family Medicine 04/18/22 FOR [...] BE BASED ON THE PRIMARY CLINICAL RECORDS. [facility]. provides no warranty or guarantee of the accuracy or completeness of information in this document.
[2024-01-10 21:26] LABS: Absolute Lymphocyte Count 2.11 X10^3/uL (0.83-4.51); Absolute Neutrophil Count 13.8 X10^3/uL (2.0-7.7); Basophil# 0.04 X10^3/uL; Basophil% 0.2 % (0-1); Eosinophil# 0.26 X10^3/uL; Eosinophils% 1.5 % (0-5); Hematocrit 42.9 % (37-47); Hemoglobin 13.8 g/dL (12.0-15.0); Lymphocyte # 2.11 X10^3/ul (0.83-4.51); Lymphocyte % 12.5 % (19-41); Mean Corp Hgb Conc 32.2 g/dL (32-36); Mean Corpuscular Hgb 28.2 pg (27.0-32.0); Mean Corpuscular Volume 87.6 fL (81-99); Mean Platelet Vol. 9.9 fl (6.2-12.0); Monocyte# 0.57 X10^3/uL; Monocyte% 3.4 % (0-10); NRBC Flagged by Analyzer 0 % (0-5); Neutrophil # 13.77 X10^3/uL (2.7-7.7); Neutrophil % 81.9 % (47-70); Platelet Count 364 K/mm3 (150-450); RBC Distribution Width CV 12.8 % (11.6-14.6); RBC Distribution Width SD 40.9 fl (35.1-43.9); White Blood Count 16.8 K/mm3 (4.4-11.0)
[2024-01-10 21:27] LABS: POSITIVE COUNT NO; POSITIVE DIFFERENTIAL NO; POSITIVE MORPHOLOGY NO
[2024-01-10 21:30] LABS: Anion Gap 6 (5-15); BUN 10 mg/dL (7-18); BUN/Creat Ratio 11.4 RATIO (10-20); Calcium,Total 9.5 mg/dL (8.5-10.1); Chloride 106 mmol/L (98-107); Creatinine, Serum 0.88 mg/dL (0.55-1.02); EST Glomerular Filtration Rate 79 mL/min (>60); Est Glom Filt Rate - Afr Amer 95 mL/min (>60); Estimated Creatinine Clearance 87.61 ml/min; Glucose 103 mg/dL (74-106); Potassium 3.5 mmol/L (3.5-5.1); Sodium Level 140 mmol/L (136-145)
[2024-01-10] MEDS: 0.9% Normal Saline (1000mL) 1,000 ML 150 ML IV (21:57)
[2024-01-10 21:58] VITALS: BP 132/77; PULSE 115; RESP 17; O2SAT 98
[2024-01-10 22:00] VITALS: BP 126/77; PULSE 115; RESP 18; O2SAT 98
[2024-01-10] MEDS: Ketorolac 30 MG/ML Syringe IV (22:35)
[2024-01-10] MEDS: levoFLOXacin 750 MG Tablet PO (22:36)
[2024-01-10 23:00] VITALS: BP 114/64; PULSE 116; RESP 17; O2SAT 95
--- NOTE | 2024-01-10 23:44 | EDS_ITS ---
HPI History of Present Illness Chief Complaint: Chest Pain Informant: patient Onset/Context/Timing Onset: Today Narrative Narrative: Patient presents with rather abrupt onset chest and left back pain along with shortness of breath. Patient was admitted to the hospital last week for appendicitis. She states has been doing well and is back to work. She has had a slight cough this week but tonight had abrupt onset of pain and shortness of breath. [facility] Medical History (Updated 01/11/24 @ 00:[address] Jane Orta MD) Contraceptive management Home Medications oxycodone-acetaminophen 5 mg-325 mg tablet 1 - 2 tab PO Q6H PRN pain 3 days #14 tabs 01/04/24 [Rx Last Taken Unknown] [id number]-[id number] 29 mg-folic acid 1 mg-om3 430 mg tablet-capsule,del.rel 1 ea PO DAILY supplement 01/04/24 [History Last Taken Unknown] levofloxacin 750 mg tablet 750 mg PO DAILY #4 tabs 01/11/24 [Rx Last Taken Unknown] Allergy/AdvReac Type Severity Reaction Status Date / Time Penicillins AdvReac Mild Rash Verified 01/10/24 21:26 Family History Father Non-Hodgkin lymphoma of extranodal and solid organ sites Grandmother Breast cancer Grandfather FH: prostate cancer Surgical History (Updated 01/10/24 @ 23:[address] Jane Orta MD) History of appendectomy History of delivery Social History Smoking Status: Never smoker alcohol intake: never substance use type: does not use what type of physical activity do you participate in: bicycling and yoga frequency: 3-4 times per week ROS ROS ED Constitutional Constitutional ED: Denies chills or fever(s) Eyes Eyes: Denies blurry vision or change in vision ENT ENT ED: Denies rhinorrhea or sore throat Cardiovascular Cardiovascular: Reports chest pain and racing heartbeat Respiratory/Chest Respiratory/Chest: Reports cough and dyspnea Gastrointestinal Gastrointestinal: Denies vomiting Genitourinary Genitourinary ED: Denies dysuria Musculoskeletal Musculoskeletal: Reports back pain Integumentary Denies rash Neurologic Neurologic: Denies headache(s) Allergic/Immunologic Allergic/Immunologic ED: Denies mouth swelling or tongue swelling EXAM Physical Exam Narrative Exam Narrative: Patient sitting upright in the bed with her back extended. She is tachycardic, tachypneic, diaphoretic. Const Vital Signs: 01/10/24 20:53 01/10/24 21:24 01/10/24 21:58 Temperature 97.2 F L Temperature Source Temporal Pulse Rate 149 H 115 H Respiratory Rate 28 H 17 Respiratory Effort Short of Breath Accessory Muscle Use Blood Pressure 137/82 H 132/77 H Blood Pressure Mean 100 95 Pulse Ox 95 98 Oxygen Delivery Method Room Air Positive well nourished and well developed General Appearance ED: well developed HEENT Reports moist mucous membranes Eyes EOMs intact bilaterally Chest Wall inspection of chest normal and palpation of chest normal Resp Resp Narrative: Tachypnea with bilateral breath sounds noted. Good air movement bilaterally. Cardio Rate: tachycardic GI non-tender Palpation: soft Back/Spine Back/Spine Narrative: Tenderness to palpation on the left posterior lower ribs. Extremity normal to inspection Neuro oriented x3 and no sensory deficits noted Motor Exam: strength 5/5 throughout Psych Mood & Affect: anxious Skin no rashes or lesions noted MDM MDM MDM Narrative Medical decision making narrative: Patient placed on registered nurse cardiac telemetry. EKG obtained to evaluate for cardiac arrhythmia/ischemia. IV line initiated. Patient given morphine and Zofran for pain control. Patient immediately sent to CT for CTA of the chest due to concern for pulmonary embolism. Labwork obtained to evaluate for leukocytosis, anemia, and electrolyte derangement. Urinalysis obtained to evaluate for infection/hematuria. History & Record Review Discussion w/independent historian: Patient and Family Additional record(s) reviewed:: Prior inpatient record, Prior ED visit and Prior labs Lab Data Attestation: I reviewed the patient's lab results. Labs: Laboratory Results - last 24 hr 01/10/24 01/10/24 21:05 23:44 WBC 16.8 H RBC 4.90 Hgb 13.8 Hct 42.9 MCV 87.6 MCH 28.2 MCHC 32.2 RDW Std Deviation 40.9 RDW Coeff of Jana 12.8 Plt Count 364 MPV 9.9 Immature Gran % (Auto) 0.500 Neut % (Auto) 81.9 H Lymph % (Auto) 12.5 L [place] % (Auto) 3.4 Eos % (Auto) 1.5 Baso % (Auto) 0.2 Absolute Neuts (auto) 13.8 H Absolute Lymphs (auto) 2.11 Nucleated RBC % 0 Sodium 140 Potassium 3.5 Chloride 106 Carbon Dioxide 28.0 Anion Gap 6 BUN 10 Creatinine 0.88 Estim Creat Clear Calc 87.61 Est GFR (MDRD) Af Amer 95 Est GFR (MDRD) Non-Af 79 BUN/Creatinine Ratio 11.4 Glucose 103 Calcium 9.5 Urine Color Yellow Urine Clarity Clear Urine pH 7.0 Ur Specific Joshua 1.010 Urine Protein 15 H Urine Glucose (UA) Normal Urine Ketones Negative Urine Occult Blood 250 H Urine Nitrite Negative Urine Bilirubin Negative Urine Urobilinogen Normal Ur Leukocyte Esterase Negative Urine RBC 0 SEEN Urine WBC 0 SEEN Ur Squamous Epith Cells 0-5 SEEN Urine Bacteria 0 SEEN Urine Mucus 0 SEEN Radiography Diagnostic Testing: Clinical Impression(s) from Imaging Studies Chest CTA 01/10/24 21:01 IMPRESSION: Negative CTA chest examination, without a demonstrated pulmonary embolism or arterial dissection. Left lower lobe pneumonia. No pleural effusion or pneumothorax. Electronically Signed: Irma Montes MD at 22:18 EST , EKG Initial EKG: Attestation: I personally reviewed and interpreted this EKG as follows: Interpretation: Sinus Tachycardia (Sinus tachycardia at 133. No acute ischemia.) Treatment and Re-Evaluation :: CBC was white count of 16.8 with 82% neutrophils. Hemoglobin is normal at 13.8. Chemistry studies unremarkable with normal renal function. Glucose is 103. CTA of the chest reveals no pulmonary embolism or dissection. Left lower lobe pneumonia is noted. No pleural effusion or pneumothorax. On repeat evaluation patient breathing more comfortably and heart rate is around 115. She states is only she does not move much or take a deep breath she is comfortable. She is given p.o. Levaquin and a dose of Toradol. Urinalysis reveals 0 bacteria and 0 RBCs. Patient has pain medication at home that she can take. She will be written for 4 additional days of Levaquin. She was instructed that if her pain is severe again night tonight and not controlled with her pain medication she can come back for repeat evaluation. She is comfortable with the plan. Discharge Plan Triage Chief Complaint: Chest Pain ED Provider: Jane Orta Dx/Rx/DC Orders Clinical Impression: Back pain, Pneumonia Instructions: ED Back Pain (Acute or Chronic), ED Pneumonia (Adult) Prescriptions: New levofloxacin 750 mg tablet 750 mg PO DAILY Qty: 4 0RF No Action oxycodone-acetaminophen 5-325 mg tablet 1 - 2 tab PO Q6H PRN (Reason: pain) 3 Days Qty: 14 0RF vit 02-dvca-ssqwq-om3 29-1-430 mg combo pack,tablet and cap,DR 1 ea PO DAILY Primary Care Provider: Giuliana Vargas Referrals: Giuliana Vargas, DO [Primary Care Provider] - 5-7 Days Disposition Disposition: Home, Self Care
[2024-01-10 23:48] LABS: Bacteria 0 SEEN /hpf (None Seen); Mucous, Urine 0 SEEN /hpf (<or=2+); Red Blood Cells-Urine 0 SEEN /hpf (0-5); White Blood Cells 0 SEEN /hpf (0-5)
[2024-01-10 23:52] LABS: Color, Urine Yellow (Yellow); Glucose, Dipstick Normal (Normal); Ketone-Dipstick Negative (Negative); Leukocyte Esterase-Dipstick Negative /ul (Negative); Nitrite-Dipstick Negative (Negative); Occult Blood-Urine 250 /ul (Negative); Protein-Dipstick 15 mg/dl (Negative); Urine Bilirubin Dipstick Negative (Negative); Urine Clarity Clear (Clear); Urine Urobilinogen Normal (Normal)
[2024-01-11] VITALS: BP 109/64; PULSE 108; RESP 22; O2SAT 95
[2024-01-11 00:20] LABS: Squamous Epithelial Cells - UA 0-5 SEEN /hpf (5-10)
[2024-01-11 00:46] VITALS: BP 101/62; PULSE 104; RESP 21; TEMP 36.3; O2SAT 94
[2024-01-11] MEDS: Morphine 4 MG/ML Syringe IV (00:49)
== END 2024-01-11 01:00 | disposition home or self-care (01) ==
PROVIDERS: Emergency Provider Emergency Medicine; PCP Family Medicine; Visit Provider Emergency Medicine
DX: J18.9 Pneumonia, unspecified organism (principal); M54.9 Dorsalgia, unspecified; Z90.49 Acquired absence of other specified parts of digestive tract
CPT/HCPCS: 71275; 80048; 81001; 85025; 93005; 96361; 96374; 96375; 99284; J7030; Q9967; A4216; J2405

== ENCOUNTER → 2024-04-07 | Outpatient (CLI) | payer OTHER, SELFPAY ==
[2024-04-10 06:09] LABS: Chlamydia By Nucleic Acid AMP Negative (Negative); Gonococcus By Nucleic Acid AMP Negative (Negative)
== END | disposition home or self-care (01) ==
LOC: LABSPEC 13:43
PROVIDERS: Referring Provider Obstetrics & Gynecology; Visit Provider Obstetrics & Gynecology
DX: O09.90 Supervision of high risk pregnancy, unspecified, unspecified trimester (principal); Z3A.00 Weeks of gestation of pregnancy not specified
CPT/HCPCS: 87086; 87491; 87591

== ENCOUNTER → 2024-04-21 | Outpatient (CLI) | payer OTHER, SELFPAY ==
[2024-04-21 10:25] LABS: Absolute Lymphocyte Count 1.69 X10^3/uL (0.83-4.51); Absolute Neutrophil Count 7.4 X10^3/uL (2.0-7.7); Basophil# 0.02 X10^3/uL; Basophil% 0.2 % (0-1); Eosinophil# 0.07 X10^3/uL; Eosinophils% 0.7 % (0-5); Hematocrit 40.9 % (37-47); Hemoglobin 13.4 g/dL (12.0-15.0); Lymphocyte # 1.69 X10^3/ul (0.83-4.51); Lymphocyte % 17.4 % (19-41); Mean Corp Hgb Conc 32.8 g/dL (32-36); Mean Corpuscular Hgb 28.6 pg (27.0-32.0); Mean Corpuscular Volume 87.4 fL (81-99); Mean Platelet Vol. 10.6 fl (6.2-12.0); Monocyte# 0.52 X10^3/uL; Monocyte% 5.3 % (0-10); NRBC Flagged by Analyzer 0 % (0-5); Neutrophil # 7.39 X10^3/uL (2.7-7.7); Platelet Count 242 K/mm3 (150-450); RBC Distribution Width CV 13.3 % (11.6-14.6); RBC Distribution Width SD 42.7 fl (35.1-43.9); Red Blood Count 4.68 M/mm3 (4.2-5.4); White Blood Count 9.7 K/mm3 (4.4-11.0)
[2024-04-21 11:28] LABS: HIV - WCH Non-Reactive (Nonreactive); Hepatitis B Surface Antigen Non-Reactive (Nonreactive); Hepatitis C Antibody Non-Reactive (Nonreactive); Rubella IgG Reactive (Nonreactive); Syphilis Antibodies Non-reactive
== END | disposition home or self-care (01) ==
LOC: PAVLAB 09:53
PROVIDERS: PCP Family Medicine; Referring Provider Obstetrics & Gynecology; Visit Provider Obstetrics & Gynecology
DX: Z34.90 Encounter for supervision of normal pregnancy, unspecified, unspecified trimester (principal)
CPT/HCPCS: 36415; 85025; 86703; 86762; 86780; 86803; 86850; 86900; 86901; 87340

== ENCOUNTER → 2024-08-19 | Outpatient (CLI) | payer OTHER, SELFPAY ==
[2024-08-19 10:21] LABS: Absolute Lymphocyte Count 1.39 X10^3/uL (0.83-4.51); Absolute Neutrophil Count 10.7 X10^3/uL (2.0-7.7); Basophil# 0.03 X10^3/uL; Basophil% 0.2 % (0-1); Eosinophil# 0.06 X10^3/uL; Eosinophils% 0.5 % (0-5); Hematocrit 38.1 % (37-47); Hemoglobin 12.2 g/dL (12.0-15.0); Lymphocyte # 1.39 X10^3/ul (0.83-4.51); Lymphocyte % 10.8 % (19-41); Mean Corpuscular Hgb 28.8 pg (27.0-32.0); Mean Corpuscular Volume 90.1 fL (81-99); Mean Platelet Vol. 11.1 fl (6.2-12.0); Monocyte# 0.55 X10^3/uL; Monocyte% 4.3 % (0-10); NRBC Flagged by Analyzer 0 % (0-5); Neutrophil # 10.73 X10^3/uL (2.7-7.7); Neutrophil % 83.3 % (47-70); Platelet Count 223 K/mm3 (150-450); RBC Distribution Width CV 13.8 % (11.6-14.6); RBC Distribution Width SD 45.1 fl (35.1-43.9); Red Blood Count 4.23 M/mm3 (4.2-5.4); White Blood Count 12.9 K/mm3 (4.4-11.0)
[2024-08-19 10:25] LABS: Glucose Challenge Gest 1H 50g 160 mg/dL (70-140)
[2024-08-19 11:01] LABS: HIV - WCH Non-Reactive (Nonreactive); Syphilis Antibodies Non-reactive
== END | disposition home or self-care (01) ==
LOC: MTLAB 07:04
PROVIDERS: Obstetrics & Gynecology; PCP Family Medicine; Referring Provider Obstetrics & Gynecology; Visit Provider Obstetrics & Gynecology
DX: Z13.1 Encounter for screening for diabetes mellitus (principal); O09.92 Supervision of high risk pregnancy, unspecified, second trimester; Z3A.00 Weeks of gestation of pregnancy not specified
CPT/HCPCS: 36415; 82950; 85025; 86703; 86780

== ENCOUNTER → 2024-09-14 | Outpatient (CLI) | payer OTHER, SELFPAY ==
--- OUTSIDE RECORDS SUMMARY | 2024-09-14 07:00 | XMS RPT_ITS | CCD ---
Author Organization [facility] Care Team Providers Care Architecture Consultant Name Role Phone Elisha Ballard Primary Care Provider ELISHA BALLARD Primary Care Unavailable ABDIRIZAK HAN Attending UnavailElisha Christie Primary Care Provider [phone] Carla Carter Primary Care Provider Elisha Ballard Unavailable JANE SEGOVIA Attending UnavailCARLA Wang Primary Care Unavailable Salma Guthrie Primary Care Provider No, Physician Primary Care Provider UnavailElisha Christie CNP Primary Care Provider KATYA EDWARDS Admitting WILLIE García Attending Unavailable ELISHA BALLARD Primary Care Unavailable KATYA EDWARDS Attending Joyce garcia [facility] onsulting Unavailable WILLIE NASH Admitting Unavailable ELISHA BALLARD Primary Care Unavailable KATYA EDWARDS Attending KATYA Pendleton Referring Unavaadriana labSALMA Awan Primary Care Unavailable ELIU DIAZ Admitting Unavailable LAMIN FREEDMAN Attending Unavailable LAMIN FREEDMAN Primary Care Unavailable Edu Olivares MD Unavailable Lamin Freedman MD Primary Care Provider LAMIN FREEDMAN Primary Care Unavailable JUAN DANIEL BURROWS Primary Care Unavailable MARGARET JOHN Admitting Unavail able JARVIS BURROWSYNNA D Primary Care Unavailable MARGARET JOHN Attending Unavail able AB PRIMARY CAREMD Primary Care Unavailable ESTER MUSTAFA Referring Unavailable ESTER MUSTAFA Attending Unavailable Allergies Allergy Classification Reported Allergen(s) Allergy Type Date of Onset Reaction(s) Facility (15 sources) Penicillins; Translations: [Unknown] Propensity to adverse reactions to drug 08-30-2016 [facility] (3 sources) Penicillins Propensity to adverse reactions to drug 08-30-2016 [facility] Medications Current Medications Medication Drug Class(es) Dates Sig (Normalized) Sig (Original) acetaminophen 325 mg oral tablet (3 sources) Start: 08-15-2021 End: 08-25-2021 take 2 tablets by mouth every four hours as needed acetaminophen (TYLENOL) 325 MG tablet Take 2 (two) tablets (650 mg total) by mouth every 4 (four) hours as needed . 30 tablet 0 08/15/2021 08/25/2021 Active Start: 08-13-2021 End: 08-15-2021 take 1 tablet by mouth every four hours as needed for pain 650 mg, Oral, Every 4 hours PRN, mild pain, Starting on 08/13/21 at 0432, docusate sodium 100 mg oral capsule (3 sources) Start: 08-13-2021 End: 08-25-2021 take 1 capsule by mouth twice daily as needed for constipation docusate sodium (COLACE) 100 MG capsule Take 1 (one) capsule (100 mg total) by mouth 2 (two) times a day as needed for constipation . 10 capsule 0 08/15/2021 08/25/2021 Active ibuprofen 600 mg oral tablet (3 sources) Nonsteroidal Anti-inflammatory Drug Start: 08-14-2021 End: 09-14-2021 take 1 tablet by mouth every six hours as needed ibuprofen (ADVIL,MOTRIN) 600 MG tablet Take 1 (one) tablet (600 mg total) by mouth every 6 (six) hours as needed . 30 tablet 0 08/15/2021 09/14/2021 Active oxyCODONE hydrochloride 5 mg oral tablet (3 sources) Opioid Agonist Start: 08-15-2021 End: 08-20-2021 oxyCODONE (ROXICODONE) 5 MG immediate release tablet Indications: H/O: section Take 1 (one) tablet (5 mg total) by mouth every 6 (six) hours as needed (Days supply per fill: 7) . 15 tablet 0 08/15/2021 08/20/2021 Active Start: 08-13-2021 End: 08-15-2021 take 5-10 mg by mouth every four hours as needed 5-10 mg, Oral, Every 4 hours PRN, moderate to severe pain, Starting on 08/13/21 at 0432, [] Initiate with 5 mg oral every [...] or patient requires dose reduction, call physician. vitamin with Ca-Iron-FA 27-1 mg Tab (4 sources) take 1 tablet by thiago th once daily vitamin with Ca-Iron-FA 27-1 mg Tab Take 1 tablet by mouth daily . 0 Active take 1 tablet by mouth once christal y vitamin with Ca-Iron-FA 27-1 mg Tab Take 1 tablet by mouth daily . 0 Completed/Discontinued Medications Medication Drug Class(es) Dates Sig [...] if patient is afebrile and tolerating orals. Start: 08-12-2021 End: 08-13-2021 lactated Ringers infusion Start: 08-12-2021 End: 08-12-2021 lactated Ringers infusion - ADS Override Pull ceFAZolin 2000 mg injection (1 source) Cephalosporin Antibacterial Start: 08-13-2021 End: 08-13-2021 ceFAZolin (ANCEF) IVPB 2 g (premix) Start: 08-13-2021 End: 08-13-2021 ceFAZolin (ANCEF) IVPB 2 g ( premix) citric acid 66.8 mg/ml / sodium citrate 100 mg/ml oral solution (1 source) Calculi Dissolution Agent, Anti-coagulant Start: 08-13-2021 End: 08-13-2021 citric acid-sodium citrate (BICITRA) solution 30 mL Start: 08-13-2021 End: 08-13-2021 citric acid-sodium citrate ( BICITRA) solution 30 mL diphenhydrAMINE (1 source) Histamine-1 Receptor Antagonist Start: 08-13-2021 End: 08-15-2021 take 1 tablet by mouth every six hours as needed diphenhydrAMINE (BENADRYL) tablet 25 mg drospirenone / Ethinyl Estradiol (10 sources) Progestin, Estrogen Start: 11-09-2020 End: 01-16-2021 Gimaria l, 28, 3-0.02 mg per tablet Start: 06-19-2015 End: 01-16-2021 drospirenone-ethinyl estradi ol (OCELLA) 3-0.03 mg per tablet Start: 06-19-2015 drospirenone-e thinyl estradiol (OCELLA) 3-0.03 mg per tablet naloxone (NARCAN) injection 0.1 mg (1 source) Start: 08-13-2021 End: 08-15-2021 naloxone (NARCAN) injection 0.1 mg ondansetron 8 mg disintegrating oral tablet (2 sources) Serotonin-3 Receptor Antagonist Start: 08-13-2021 End: 08-13-2021 ondansetron (ZOFRAN-ODT) disintegrating tablet 8 mg Start: 08-12-2021 End: 08-13-2021 take 4 mg intravenously every six hours as needed for nausea and vomiting ondansetron (ZOFRAN) injection 4 mg ondansetron (ZOFRAN-ODT) disintegrating tablet 4 mg (1 source) Start: 08-13-2021 End: 08-15-2021 take 1 tablet by mouth every six hours as needed ondansetron (ZOFRAN-ODT) disintegrating tablet 4 mg oxytocin in lactated ringers (PITOCIN) 20 unit/1,000 mL infusion (2 sources) Start: 08-13-2021 End: 08-14-2021 Intravenous, at 124.8 mL/hr, Continuous, Starting on 08/13/21 at 0530, For 24 hours, L&D Post-Delivery Discontinue infusion after 3.5 hours AND when bleeding scant and fundus firm. The n begin LR infusion at 125 ml/hr CATEGORY B HAZARDOUS DRUG use safe handling precautions. Use reference link to view PPE guidelines. Safe handling precautions only required when in the third trimester. EMERGENC Y Haz Drug use professional judgement when deviating from standard handling precautions. Initial Rate (asad-units/min): 41.6 asad-units/min Start: 08-12-2021 End: 08-13-2021 oxytocin in lactated ringers (PITOCIN) 20 unit/1,000 mL infusion oxytocin in lactated ringers (PITOCIN) 20 unit/1,000 mL infusion - ADS Override Pull (1 source) Start: 08-12-2021 End: 08-12-2021 oxytocin in lactated ringers (PITOCIN) 20 unit/1,000 mL infusion - ADS Override Pull rho(d) immune globulin (RHOPHYLAC) injection 300 mcg (1 source) Start: 08-13-2021 End: 08-15-2021 inject 300 ug by intramuscular injection every twenty-four hours as needed rho(d) immune globulin (RHOPHYLAC) injection 300 mcg simethicone 80 mg chewable tablet (1 source) Start: 08-13-2021 End: 08-15-2021 take 80 mg by mouth after mealtime as needed 80 mg, Oral, After meals as needed, flatulence, Starting on 08/13/21 at 0432, 1000 ml sodium chloride 9 mg/ml injection (1 source) Start: 08-13-2021 End: 08-15-2021 0-150 mL/hr, Intravenous, As needed, To flush line after IV infusions when no maintenance IV ordered or a compatibility issue. Infuse 20ml at the same rate as the secondary infusion, Starting on 08/13/21 at 0432, L&D Post-Delivery Run as Primary IV. NOT intended for KVO. zolpidem tartrate 5 mg oral tablet (1 source) gamma-Aminobu tyric Acid-ergic Agonist Start: 08-13-2021 End: 08-15-2021 take 5 mg by mouth once daily as needed for sleep 5 mg, Oral, Nightly PRN, sleep, Starting on 08/13/21 at 0432, Do not substitute. Problems Active Problems Problem Classification Problem Date [...] Results Test Name Value Interpretation Reference Range Facility Comprehensive metabolic 2000 panelon 04-18-2022 Albumin [Mass/Vol] 4.6 g/dL 3.2 - 5.2 g/[facility] ALP [Catalytic activity/Vol] 94 U/L 40 - 140 U/L [facility] ALT [Catalytic activity/Vol] 14 U/L 0 - 40 U/L [facility] Anion gap [Moles/Vol] 18 mmol/L 10 - 20 mmol/L [facility] AST [Catalytic activity/Vol] 12 U/L 0 - 45 U/L [facility] Bilirubin [Mass/Vol] mg/dL 0 - 1.3 mg/dL O [facility] Calcium [Mass/Vol] 9.5 mg/dL 8.4 - 10. 2 mg/dL [facility] Chloride [Moles/Vol] 105 mmol/L 98 - 10 8 mmol/L [facility] Creatinine [Mass/Vol] 0.58 mg/dL 0.40 - 1.10 mg/dL [facility] GFR/1.73 sq M.predicted CKD-EPI (S/P/Bld) [Vol rate/Area] 123 - PINF [facility] Glucose [Mass/Vol] 83 mg/dL 65 - 99 mg/dL [facility] HCO3 [Moles/Vol] 25 mmol/L 21 - 32 mmol/L [facility] Interpretation and review of laboratory results Normal [facility] Potassium [Moles/Vol] 4.6 mmol/L 3.5 - 5.1 mmol/L [facility] Protein [Mass/Vol] 7.0 g/dL 6 - 8 g/dL [facility] alth Sodium [Moles/Vol] 143 mmol/L 135 - 145 mmol/L [facility] Urea nitrogen [Mass/Vol] 8 mg/dL 8 - 25 mg/dL [facility] Urea nitrogen/Creatinine [Mass ratio] 13.8 mg/mg 10 - 20 [facility] The eGFR should be used for monitoring renal function only and not for medication dosing. [facility] Lipid 1996 panelon 2 Cholesterol [Mass/Vol] 163 mg/dL 100 - 199 mg/dL [facility] Cholesterol in HDL [Mass/Vol] 65 mg/dL 40 - 59 mg/dL [facility] Cholesterol in LDL [Mass/Vol] 89 mg/dL 10 - 130 mg/dL [facility] Comment on above: National Cholesterol Education Program Guidelines: LDL Cholesterol Optimal: <100 mg/dL Near Optimal/above Optimal: 100-129 mg/dL Borderline High: 130-159 mg/dL High: 160-189 mg/dL Very High: greater than or equal to 190 mg/dL Cholesterol non HDL [Mass/Vol] 98 mg/dL [facility] Comment on above: National Cholesterol Education Program Guidelines: NON HDL Cholesterol Desirable: <130 mg/dL Borderline High: 130-159 mg/dL High: 160-189 mg/dL Very High: > or = 190 mg/dL Cholesterol.total/Chol esterol in HDL [Mass ratio] 2.5 {ratio} ratio [facility] Comment on above: Female Cholesterol/H DL Ratio: Average risk: 4.4 1/2 average risk: 3.3 2 x average risk: 7.1 Triglyceride [Mass/Vol] 44 mg/dL 30 - 150 mg/dL [facility] No Panel Informationon 04-18 [facility] CBC panel Auto (Bld)on 08-14 Erythrocyte distribution width (RBC) [Entitic vol] 14.4 % 11.6 - 14.8 % [facility] Hematocrit (Bld) [Volume fraction] 32.2 % Low 36.0 - 46.0 % [facility] Hemoglobin (Bld) [Mass/Vol] 10.4 g/dL Low 12.0 - 16.0 g/dL [facility] Interpretation and review of laboratory results Abnormal [facility] MCH (RBC) [Entitic mass] 28.9 pg 26.0 - 34.0 pg [facility] MCHC (RBC) [Mass/Vol] 32.3 g/dL 31.0 - 37.0 g/dL [facility] MCV (RBC) [Entitic vol] 89.4 fL 80.0 - 100.0 fL [facility] Nucleated RBC (Bld) [#/Vol] 0.00 10*3/uL [facility] Nucleated RBC/100 WBC (Bld) [Ratio] 0.0 % [facility] Platelet mean volume (Bld) [Entitic vol] 11.2 fL 9.4 - 12.4 fL [facility] Platelets (Bld) [#/Vol] 251 10*3/uL [facility] RBC (Bld) [#/Vol] 3.60 10*6/uL Low [facility] ealt WBC (Bld) [#/Vol] 21.07 10*3/uL High [facility] APTTon 08-12-2021 aPTT Coag (Bld) [Time] 27 s [facility] Blood type and Indirect anti body screen panel (Bld)on 08-12-2021 ABO and Rh group Nom (Bld) Blood group O Rh(D) positive [facility] Blood group antibody screen Ql Negative [facility] Specimen Expires 08/15/2021 23:59 EST [facility] CBC WITH AUTO DIFFERENTIALon 08-12-2021 Basophils (Bld) [#/Vol] 0.04 10*3/uL [facility] Basophils/100 WBC (Bld) 0.2 % [facility] Eosinophils (Bld) [#/Vol] 0.06 10*3/uL [facility] Eosinophils/100 WBC (Bld) 0.3 % [facility] Erythrocyte distribution width (RBC) [Entitic vol] 14.3 % 11.6 - 14.8 % [facility] Hematocrit (Bld) [Volume fraction] 38.9 % 36.0 - 46.0 % [facility] Hemoglobin (Bld) [Mass/Vol] 12.8 g/dL 12.0 - 16.0 g/dL [facility] Immature granulocytes (Bld) [#/Vol] 0.10 10*3/uL [facility] Immature granulocytes/100 WBC (Bld) 0.60 % [facility] Comment on above: The IG parameter is the percentage of metamyelocytes, myelocytes and promyelocytes. An immature granulocyte count (IG) of 1% or more suggests the possibility of infection, an IG count of 3% is very likely related to an infection. Interpretation and review of laboratory results Abnormal [facility] Lymphocytes (Bld) [#/Vol] 2.18 10*3/uL [facility] Lymphocytes/100 WBC (Bld) 12.3 % [facility] MCH (RBC) [Entitic mass] 28.6 pg 26.0 - 34.0 pg [facility] MCHC (RBC) [Mass/Vol] 32.9 g/dL 31.0 - 37.0 g/dL [facility] MCV (RBC) [Entitic vol] 86.8 fL 80.0 - 100.0 fL [facility] Monocytes (Bld) [#/Vol] 0.87 10*3/uL [facility] Monocytes/100 WBC (Bld) 4.9 % [facility] Neutrophils (Bld) [#/Vol] 14.41 10*3/uL High [facility] Neutrophils/100 WBC (Bld) 81.7 % [facility] Nucleated RBC (Bld) [#/Vol] 0.00 10*3/uL [facility] Nucleated RBC/100 WBC (Bld) [Ratio] 0.0 % [facility] Platelet mean volume (Bld) [Entitic vol] 11.9 fL 9.4 - 12.4 fL [facility] Platelets (Bld) [#/Vol] 264 10*3/uL [facility] RBC (Bld) [#/Vol] 4.48 10*6/uL [facility] ealth WBC (Bld) [#/Vol] 17.66 10*3/uL [facility] Comprehensive metabolic 2000 panelon 08-12-2021 Albumin [Mass/Vol] 3.7 g/dL 3.2 - 5.2 g/dL [facility] ALP [Catalytic activity/Vol] 163 U/L High 40 - 140 U/L [facility] ALT [Catalytic activity/Vol] 19 U/L 0 - 40 U/L [facility] Anion gap [Moles/Vol] 17 mmol/L 10 - 20 mmol/L [facility] AST [Catalytic activity/Vol] 20 U/L 0 - 45 U/L [facility] Bilirubin [Mass/Vol] mg/dL 0.0 - 1 .3 mg/dL [facility] Calcium [Mass/Vol] 8.9 mg/dL 8.4 - 10. 2 mg/dL [facility] Chloride [Moles/Vol] 102 mmol/L 98 - 10 8 mmol/L [facility] Creatinine [Mass/Vol] 0.53 mg/dL 0.40 - 1.10 [facility] GFR/1.73 sq M.predicted CKD-EPI (S/P/Bld) [Vol rate/Area] 128 >=60 mL/min/1.73 m2 [facility] Glucose [Mass/Vol] 107 mg/dL High 65 - 99 mg/dL [facility] HCO3 [Moles/Vol] 20 mmol/L Low 21 - 32 mmol/L [facility] Interpretation and review of laboratory results Abnormal [facility] Potassium [Moles/Vol] 3.8 mmol/L 3.5 - 5.1 mmol/L [facility] Protein [Mass/Vol] 6.5 g/dL 6.0 - 8.0 g/dL [facility] Sodium [Moles/Vol] 135 mmol/L 135 - 145 mmol/L [facility] Urea nitrogen [Mass/Vol] 8 mg/dL 8 - 25 mg/dL [facility] Urea nitrogen/Creatinine [Mass ratio] 15.1 mg/mg [facility] The eGFR should be used for monitoring renal function only and not for medication dosing. [facility] FibrinogenOrdered By: Michelle Mckeon on 08-12-2021 Fibrinogen Coag (PPP) [Mass/Vol] 510 mg/dL High 224 - 483 mg/dL [facility] Fibrinogen Coag (PPP) [Mass/ Vol]Ordered By: Michelle Mckeon on 08-12-2021 Interpretation and review of laboratory results Abnormal [facility] INR Coag (PPP) [Relative scottie e]on 08-12-2021 PT Coag (PPP) [Time] 12.5 s [facility] During the induction phase of oral anticoagulation, the INR may not reflect the anticoagulation status of the patient. Therapeutic ranges for INR's are: Most clinical situations: INR 2.0-3.0 Mechanical Prosthetic Valve: INR 2.5-3.5 Critical: INR >5.0 [facility] LDHon 08-12-2021 LDH Lactate to pyruvate reaction [Catalytic activity/Vol] 239 U/L 100 - 250 U/L [facility] LDH Lactate to pyruvate reac tion [Catalytic activity/Vol]on 08-12-2021 Interpretation and review of laboratory results Normal [facility] No Panel Informationon 08-12 [facility] Interpretation and review of laboratory results Normal [facility] PT/INRon 08-12-2021 INR Coag (PPP) [Relative time] 1.0 {INR} [facility] T. pallidum IgG Ql (S)on Interpretation and review of laboratory results Normal [facility] T. pallidum Ab Ql (S) Negative Negative [facility] Urate [Mass/Vol]on Interpretation and review of laboratory results Normal [facility] Uric Acidon 08-12-2021 Urate [Mass/Vol] 4.5 mg/dL 2.4 - 7.0 mg/dL [facility] aPTT Coag (Bld) [Time]on Therapeutic range for APTT's is 68 - 104 seconds [facility] COVID-19, MOLECULARon 2019 INTERNAL CONTROL (ABBOT ID) Pass Normal [facility] SARS-COV-2 (DAVIS ID) Detected Abnormal Not Detected [facility] COVID-19, Molecularon 2019 Internal Control Pass [facility] Interpretation and review of laboratory results Abnormal [facility] SARS-CoV-2 Detected Abnormal Not Detected [facility] CBCon 07-07-2019 Erythrocyte distribution width (RBC) [Entitic vol] 13.1 % 11.6 - 14.8 % [facility] Hematocrit (Bld) [Volume fraction] 43.5 % 36 - 46 % [facility] Hemoglobin (Bld) [Mass/Vol] 14.2 g/dL 12 - 16 g/dL [facility] MCH (RBC) [Entitic mass] 28.9 pg 26 - 34 pg [facility] MCHC (RBC) [Mass/Vol] 32.6 g/dL 31 - 37 g/dL [facility] MCV (RBC) [Entitic vol] 88.6 fL 80 - 100 fL [facility] Nucleated RBC (Bld) [#/Vol] 0.00 10*3/uL [facility] Nucleated RBC/100 WBC (Bld) [Ratio] 0.0 % [facility] Platelet mean volume (Bld) [Entitic vol] 11.3 fL 9 - 15.5 fL [facility] Platelets (Bld) [#/Vol] 207 10*3/uL [facility] RBC (Bld) [#/Vol] 4.91 10*6/uL [facility] ealt WBC (Bld) [#/Vol] 6.34 10*3/uL [facility] CRP, Inflammationon 07-07-20 19 CRP [Mass/Vol] 10.8 mg/L High 0 - 10 mg/L [facility] Interpretation and review of laboratory results Abnormal [facility] Comprehensive Metabolic Pane moe 07-07-2019 Albumin [Mass/Vol] 4.4 g/dL 3.2 - 5.2 g/dL [facility] ALP [Catalytic activity/Vol] 57 U/L 40 - 140 U/L [facility] ALT [Catalytic activity/Vol] 14 U/L 0 - 40 U/L [facility] Anion gap [Moles/Vol] 15 mmol/L 10 - 20 mmol/L [facility] AST [Catalytic activity/Vol] 14 U/L 0 - 45 U/L [facility] Bilirubin [Mass/Vol] 0.3 mg/dL 0 - 1.3 mg/dL [facility] Calcium [Mass/Vol] 9.5 mg/dL 8.4 - 10. 2 mg/dL [facility] Chloride [Moles/Vol] 104 mmol/L 98 - 10 8 mmol/L [facility] Creatinine [Mass/Vol] 0.69 mg/dL 0.4 - 1.1 mg/dL [facility] GFR/1.73 sq M predicted among non-blacks MDRD (S/P/Bld) [Vol rate/Area] The eGFR should be used for monitoring renal function only and not for medication dosing. [facility] GFR/1.73 sq M.predicted CKD-EPI (S/P/Bld) [Vol rate/Area] 119 >=60 mL/min/1.73 m2 [facility] Glucose [Mass/Vol] 87 mg/dL 65 - 99 mg/dL [facility] HCO3 [Moles/Vol] 24 mmol/L 21 - 32 mmol/L [facility] Potassium [Moles/Vol] 4.4 mmol/L 3.5 - 5.1 mmol/L [facility] Protein [Mass/Vol] 6.8 g/dL 6 - 8 g/dL [facility] alth Sodium [Moles/Vol] 139 mmol/L 135 - 145 mmol/L [facility] Urea nitrogen [Mass/Vol] 10 mg/dL 8 - 25 mg/dL [facility] Urea nitrogen/Creatinine [Mass ratio] 14.5 mg/mg [facility] Otheron 07-07-2019 Interpretation and review of laboratory results Normal [facility] TSHon 07-07-2019 TSH Qn 2.10 m[IU]/L [facility] Vital Signs Date Time Vital Sign Value Performing Clinician Nadeen bethea 04-18-2022 08:45-0400 Body height 160 cm Lamin Freedman MD Work Phone: [facility] 04-18-2022 08:45-0400 Body mass index (BMI) [Ratio] 26.57 kg/m2 Lamin Freedman MD Work Phone: [facility] 04-18-2022 08:45-0400 Body temperature 98.4 [degF] Lamin Freedman MD Work Phone: [facility] 04-18-2022 08:45-0400 Body weight 68.04 kg Lamin Freedman MD Work Phone: [facility] 04-18-2022 08:45-0400 Diastolic blood pressure 85 mm[Hg] Lamin Freedman MD Work Phone: [facility] 04-18-2022 08:45-0400 Heart rate 83 /min Lamin Freedman MD Work Phone: [facility] 04-18-2022 08:45-0400 SaO2% (BldA) [Mass fraction] 98 % Lamin Freedman MD Work Phone: [facility] 04-18-2022 08:45-0400 Systolic blood pressure 130 mm[Hg] Lamin Freedman MD Work Phone: [facility] 08-15-2021 08:00-0400 Body temperature 98.1 [degF] Katya Edwards MD Work Phone: [facility] 08-15-2021 08:00-0400 Diastolic blood pressure 85 mm[Hg] Katya Edwards MD Work Phone: [facility] 08-15-2021 08:00-0400 Heart rate 101 /min Katya Edwards MD Work Phone: [facility] 08-15-2021 08:00-0400 Respiratory rate 16 /min Katya Edwards MD Work Phone: [facility] 08-15-2021 08:00-0400 SaO2% (BldA) [Mass fraction] 97 % Katya Edwards MD Work Phone: [facility] 08-15-2021 08:00-0400 Systolic blood pressure 135 mm[Hg] Katya Yost Work Phone: [facility] 08-12-2021 08:04-0400 Body height 160 cm Katya Edwards MD Work Phone: [facility] 08-12-2021 08:04-0400 Body mass index (BMI) [Ratio] 33.13 kg/m2 Katya Edwards MD Work Phone: [facility] 08-12-2021 08:04-0400 Body weight 84.82 kg Katya Edwards MD Work Phone: [facility] 01-16-2021 08:14-0500 BMI (Body Mass Index) 28.34 kg/m2 Salma Guthrie [facility] 01-16-2021 08:14-0500 Body Temperature 97 [degF] [facility] 01-16-2021 08:14-0500 Body weight 72.58 kg [facility] 01-16-2021 08:14-0500 BP Diastolic 79 mm[Hg] [facility] 01-16-2021 08:14-0500 BP Systolic 124 mm[Hg] [facility] 01-16-2021 08:14-0500 Height 160 cm [facility] 01-16-2021 08:14-0500 Pulse (Heart Rate) 90 /min [facility]16[facility]21 08:14-0500 Pulse Oximetry 99 % [facility] 10-24-2020 17:48-0500 BMI (Body Mass Index) 25.69 kg/m2 Jane Segov[facility] 10-24-2020 17:48-0500 Body Temperature 98.1 [degF] Jane Segovia [facility] 10-24-2020 17:48-0500 Body [facility] 65.77 [facility] 17:48-0500 Height 160 [facility]2020 17:48-0500 Pulse (Heart Rate) 92 /min Jane Segovia [facility] 10-24-2020 17:48-0500 Pulse Oximetry 99 % [facility] 11-24-2019 11:17-0500 BMI (Body Mass Index) 29.14 kg/m2 [facility] 11-24-2019 11:17-0500 Body weight 72.26 kg [facility] 11-24-2019 11:17-0500 BP Diastolic 83 mm[Hg] [facility] 11-24-2019 11:17-0500 BP Systolic 130 mm[Hg] [facility] 11-24-2019 11:17-0500 Pulse (Heart Rate) 87 /min [facility] 07-11-2019 18:21-0400 Body Temperature 98.4 [degF] Abdirizak [facility] 07-11-2019 18:21-0400 BP Diastolic 90 mm[Hg] [facility] 07-11-2019 18:21-0400 BP Systolic 131 mm[Hg] [facility] 07-11-2019 18:21-0400 Pulse (Heart Rate) 79 /min [facility] 07-11-2019 18:21-0400 Pulse Oximetry 97 % [facility] 07-11-2019 18:21-0400 Respiratory Rate 16 /min [facility] 07-07-2019 09:15-0400 BMI (Body Mass Index) 28.28 kg/m2 [facility] 07-07-2019 09:15-0400 Body weight 70.13 kg [facility] 07-07-2019 09:15-0400 BP Diastolic 85 mm[Hg] [facility] 07-07-2019 09:15-0400 BP Systolic 128 mm[Hg] [facility] 07-07-2019 09:15-0400 Pulse (Heart Rate) 83 /min Carla Mercer [facility] 12-23-2018 13:16-0500 BMI (Body Mass Index) 28.29 kg/m2 Elisha Ballard [facility] 12-23-2018 13:16-0500 Body Temperature 97.59 [degF] Elisha Ballard [facility] 12-23-2018 13:16-0500 BP Diastolic 89 mm[Hg] Elisha Ballard [facility] 12-23-2018 13:16-0500 BP Systolic 134 mm[Hg] Elisha Elio [facility] 12-23-2018 13:16-0500 Height 157.5 cm Elisha Elio [facility] 12-23-2018 13:16-0500 Pulse (Heart Rate) 95 /min Elisha [facility] 12-23-2018 13:16-0500 Pulse Oximetry 99 % Elisha Elio [facility] 12-23-2018 13:16-0500 Weight 70.15 kg Elisha [facility] Encounters Encounter Date Encounter Type Care Provider Facility Start: 06-22-2024 End: 06-22-2024 ambulatory MD [facility] Start: 07-25-2022 End: 07-25-2022 ambulatory [facility] Start: 07-25-2022 End: 07-29-2022 [facility] Start: 04-22-2022 Patient encounter status Lamin Freedman MD Work Phone: [facility] Work Phone: Start: 04-18-2022 End: 04-22-2022 ambulatory LAMIN FREEDMAN [facility] Start: 04-18-2022 End: 04-22-2022 ambulatory LAMIN FREEDMAN [facility] Start: 04-18-2022 End: 04-18-2022 Patient encounter status Lamin Freedman MD Work Phone: [facility] Start: 04-18-2022 End: 04-18-2022 Periodic preventive med est patient 18-39 yrs Lamin Freedman MD Work Phone: [facility] Comment on above: Encounter for well a dult exam with abnormal findings (Primary Dx); Rectal bleeding Encounter for well a dult exam with abnormal findings (Primary Dx); Rectal bleeding; Screening for cardiovascular condition; Screening for lipid disorders Start: 08-12-2021 End: 08-15-2021 Evaluation and management of inpatient [facility] Start: 08-12-2021 End: 08-15-2021 Evaluation and management of inpatient Katya Edwards MD Work Phone: [facility] Start: 08-11-2021 End: 08-12-2021 ambulatory [facility] Start: 08-11-2021 End: 08-11-2021 ambulatory [facility] Start: 02-22-2021 End: 02-22-2021 Patient encounter procedure Moderna 2nd Dose Oes Pcp Amadou [facility] Start: 01-16-2021 Patient encounter status Katya Edwards MD Work Phone: [facility] Work Phone: Start: 01-16-2021 End: 01-16-2021 Periodic preventive med est patient 18-39 yrs Salma EscobarTyrone Guthrie Work Phone: [facility] Comment on above: Encounter for screen ing and preventative care (Primary Dx) Start: 11-16-2020 End: 11-16-2020 Patient encounter procedure Rosa Baig [facility] Start: 10-24-2020 End: 10-24-2020 Patient encounter procedure JANE SEGOVIA [facility] Start: 10-24-2020 End: 10-24-2020 Office outpatient visit 15 minutes Jane Segovia Work Phone: [facility] Comment on above: Anosmia (Primary Dx) ; Contact with and (suspected) exposure to other viral communicable diseases Start: 12-22-2019 End: 12-22-2019 Clinical Support Preet Bernardo [facility] Primary C are Physicians Comment on above: Immunization due (Pr imary Dx) Start: 11-24-2019 End: 11-24-2019 Office outpatient visit 25 minutes Carla Mercer Work Phone: [facility] Gastroenterology [facility] Comment on above: Irritable bowel synd corey with diarrhea (Primary Dx) Start: 07-13-2019 End: 07-13-2019 Documentation procedure Jody Cook [facility] Prima [facility] Comment on above: ED Follow-up Start: 07-11-2019 End: 07-11-2019 Emergency department patient visit ELISHADIANA PALACIO [facility] Start: 07-11-2019 End: 07-11-2019 Emergency department patient visit Abdirizak Szymanskitte Work Phone: [facility] Emergency Department Comment on above: Needlestick injury o f finger, initial encounter (Primary Dx) Start: 07-07-2019 End: 07-07-2019 Office consultation new/estab patient 60 min Elisha Palacio Elio Work Phone: [facility] Gastroenterology [facility] Comment on above: Irritable bowel synd corey with diarrhea (Primary Dx); Diarrhea, unspecified type Start: 12-23-2018 End: 01-16-2021 Patient encounter status Katya Ewdards MD Work Phone: [facility] Start: 12-23-2018 End: 12-23-2018 Periodic preventive med est patient 18-39 yrs Elisha Ballard Work Phone: [facility] Comment on above: Diarrhea, unspecifie d type (Primary Dx); Preventative health care Procedures Date Procedure Procedure Detail Performing Clinician Start: 04-18-2022 Adult depression screening assessment Lamin Freedman MD Work Phone: Start: 08-14-2021 Blood count complete automated Willie Nash MD Work Phone: Start: 08-12-2021 Blood typing serologic abo Willie Nash MD Work Phone: Start: 08-12-2021 Comprehensive metabolic panel Antionette MERCADO Work Phone: Start: 10-24-2020 COVID-19, MOLECULAR Janeeliud Fernández Jose Work Phone: Start: 05-01-2019 Microscopic observation [Identifier] in Cervix by Cyto stain Carla Mercer Start: 03-13-2016 Microscopic observation [Identifier] in Cervix by Cyto stain Elisha Ballard section Willie figueroa MD Work Phone: H/O: section H/O: secti on Katya Tyson Edwards MD Work Phone: Plan of Treatment Date Care Activity Detail Author Start: 12-23-2028 Tetanus vaccination [facility] Start: 04-18-2023 Depression screening using PHQ-9 (Patient Health Questionnaire 9) score Depression Screening (PHQ-2/9) [facility] Start: 04-18-2023 History and physical examination, annual for health maintenance Wellness Visit [facility] Start: 05-01-2022 Screening for malignant neoplasm of cervix PAP SMEAR [facility] Start: 01-16-2022 History and physical examination, annual for health maintenance Wellness Visit [facility] Start: 01-17-2021 End: 01-17-2021 Office Visit 01/17/2021 Office Visit Primary Care Elisha Ballard, [employer] [address] [place] [address] [phone] [facility] Start: 12-15-2020 End: 12-15-2020 Immunization 12/15/2020 Immunization Primary Care Margaret John MD [address] [place] [address] [phone] [facility] Start: 12-14-2020 COVID-19 Vaccine (2 of 2 - Moderna series) COVID-19 Vaccine (2 of 2 - Moderna series) [facility] Start: 12-14-2020 COVID-19 Vaccine (Moderna) (#2) COVID-19 Vaccine (Moderna) (#2) [facility] Start: 12-23-2019 History and physical examination, annual for health maintenance Wellness Visit [facility] Start: 10-06-2019 End: 10-06-2019 Office Visit 10/06/2019 Office Visit Gastroenterology Carla Mercer, DO [address] [place] [address] [phone] [facility] Start: 07-19-2019 Influenza vaccination given SEQUENTIAL INFLUENZA VACCINE (#1) [facility] Start: 03-13-2019 Screening for malignant neoplasm of cervix PAP SMEAR [facility] Start: 07-19-2018 Influenza vaccination given SEQUENTIAL INFLUENZA VACCINE (#1) [facility] Start: 2003 Adolescent depression screening assessment Depression Screening (PHQ9) [facility] Start: 1991 Depression screening using PHQ-9 (Patient Health Questionnaire 9) score DEPRESSION SCREENING (PHQ9) [facility] Covid-19/Influenza O rder Algorithm Covid-19/Influenza Order Algorithm Microbiology Routine Anosmia Contact With And (Suspected) Exposure To Other Viral Communicable Diseases Ordered: 10/24/2020 [facility] Comment on above: Ordered: 10/24/2020 End: 07-07-2020 Quantitative measurement of calprotectin in stool specimen Calprotectin Lab Routine Irritable bowel syndrome with diarrhea 1 Occurrences starting 07/07/2019 until 07/07/2020 [facility] Comment on above: 1 Occurrences starting 07/07/2019 until 07/07/2020 End: 07-07-2020 Tissue transglutaminase IgG measurement Tissue Transglutaminase, IgG Lab Routine Irritable bowel syndrome with diarrhea 1 Occurrences starting 07/07/2019 until 07/07/2020 [facility] Comment on above: 1 Occurrences starting 07/07/2019 until 07/07/2020 Tissue transglutamin ase IgG measurement Tissue Transglutaminase, IgG Lab Routine Irritable bowel syndrome with diarrhea 07/07/2019 10:33 AM EDT [facility] Immunizations Immunization Date Immunization Notes Care Provider Fa cility 09-18-2021 influenza virus vacc ine, unspecified formulation Lamin Freedman MD Work Phone: [facility] 09-18-2021 influenza, injectabl e, quadrivalent, preservative free Lamin Freedman MD Work Phone: [facility] 08-13-2021 varicella zoster imm une globulin Katya Edwards MD Work Phone: [facility] 08-13-2021 measles, mumps and r ubella virus vaccine Katya Edwards MD Work Phone: [facility] 08-13-2021 diphtheria, tetanus toxoids and acellular pertussis vaccine, unspecified formulation Katya Edwards MD Work Phone: [facility] 02-22-2021 Moderna SARS-CoV-2 Vaccination Rico Basil Pcp Amadou [facility] 11-16-2020 Moderna SARS-CoV-2 Vaccination Rosa Baig [facility] 09-20-2020 influenza virus vacc ine, unspecified formulation Salma Oberschmidt [facility] 12-22-2019 hepatitis A vaccine, adult dosage Preet Bernardo [facility] 12-22-2019 hepatitis A vaccine, unspecified formulation Preet Bernardo [facility] 08-21-2019 influenza virus vacc ine, unspecified formulation Salma Oberschmidt [facility] 12-23-2018 diphtheria, tetanus toxoids and acellular pertussis vaccine, unspecified formulation Elisha Ballard [facility] 12-23-2018 tetanus toxoid, redu ramos diphtheria toxoid, and acellular pertussis vaccine, adsorbed Elisha [facility] 07-03-2016 tuberculin skin test ; purified protein derivative solution, intradermal Elisha Ballard [facility] 09-17-2015 hepatitis B vaccine, adult dosage Salma Oberschmidt [facility] 07-14-2015 hepatitis B vaccine, adult dosage Salma Oberschmidt [facility] 11-26-2014 hepatitis B vaccine, adult dosage Salma Oberschmidt [facility] 09-01-2014 influenza, injectabl e, quadrivalent, preservative free Salma Oberschmidt [facility] 03-07-2012 hepatitis A vaccine, adult dosage Salma Oberschmidt [facility] 03-07-2012 poliovirus vaccine, inactivated Salma Oberschmidt [facility] 03-07-2012 typhoid capsular polysaccharide vaccine Salma Oberschmidt [facility] 03-07-2012 yellow fever vaccine Salma Oberschmid t [facility] 02-07-2010 hepatitis B vaccine, pediatric or pediatric/adolescent dosage Salma Oberschmidt [facility] 10-26-2009 hepatitis B vaccine, pediatric or pediatric/adolescent dosage Salma Oberschmidt [facility] 07-19-2009 hepatitis B vaccine, pediatric or pediatric/adolescent dosage [facility] 07-19-2009 meningococcal polysaccharide (groups A, C, Y and W-135) diphtheria toxoid conjugate vaccine (MCV4P) [facility] 07-19-2009 tetanus toxoid, redu ramos diphtheria toxoid, and acellular pertussis vaccine, adsorbed [facility] 02-23-1998 measles, mumps and r ubella virus vaccine [facility] 09-04-1995 diphtheria, tetanus toxoids and pertussis vaccine [facility] 09-04-1995 poliovirus vaccine, unspecified formulation [facility] 08-12-1992 diphtheria, tetanus toxoids and pertussis vaccine [facility] 04-25-1992 haemophilus influenz ae type b vaccine, conjugate unspecified formulation [facility] 04-25-1992 measles, mumps and r ubella virus vaccine [facility] 1991 diphtheria, tetanus toxoids and pertussis vaccine [facility] 1991 haemophilus influenz ae type b vaccine, conjugate unspecified formulation [facility] 1991 poliovirus vaccine, unspecified formulation [facility] 1991 diphtheria, tetanus toxoids and pertussis vaccine [facility] 1991 haemophilus influenz ae type b vaccine, conjugate unspecified formulation [facility] 1991 poliovirus vaccine, unspecified formulation [facility] 1991 diphtheria, tetanus toxoids and pertussis vaccine [facility] 1991 haemophilus influenz ae type b vaccine, conjugate unspecified formulation [facility] 1991 poliovirus vaccine, unspecified formulation [facility] Payers Date Payer Category Payer Worker's Compensation [id number] 2017 Unknown CARMINA BERMAN/BARBARA/HMO/PPO xxxxxxxxxxxx 2017-Present xxxxxxxxxxxx [id number] 2017 Unknown [id number] 2017 Unknown [id number] 2017 Unknown CARMINA CARMINA BERMAN/PREF/HMO/PPO [id number] 2017-Present [phone] [address] [place] [address] [id number] 1991 Unknown [id number]. 902 1991 Unknown [id number]. 903 1991 Unknown [id number]. 902 1991 Unknown [id number]. 902 1991 Unknown [id number]. 902 1991 Unknown [id number]. 903 1991 Unknown [id number] [id number]. 900 1991 Unknown [id number]. 900 1991 Unknown [id number]. 479 Unknown [id number] Worker's Compensation WORKER'S [employer]END[employer] WORK[employer] COMPENSATION xxxxxxxxx Effective for all dates xxxxxxxxx [id number] Social History Date Type Detail Facility Start: 12-23-2018 End: 07-07-2019 Tobacco smoking status NHIS Never smoker [facility] Start: 1990 Sex Assigned At [facility] Start: 07-11-2019 End: 01-16-2021 Alcohol intake Current drinker of alcohol (finding) [facility] Start: 07-07-2019 End: 10-24-2020 Tobacco use and exposure Never used [facility] Exposure to SARS-CoV -2 (event) Yes [facility] Start: 01-16-2021 End: 04-18-2022 History SDOH Financial 5 [facility] Start: 01-16-2021 End: 04-18-2022 History SDOH Food Worry 1 [facility] Start: 01-16-2021 End: 04-18-2022 History SDOH Transport Med 2 [facility] Start: 04-02-2022 End: 04-12-2022 Exposure to SARS-CoV-2 (event) Not sure [facility] Start: 08-14-2021 End: 04-22-2022 Alcohol intake Ex-drinker (finding) [facility] Start: 08-14-2021 End: 04-22-2022 Alcohol intake [facility] Clinical Notes 08-13-2021 to 04-22-2022 Assessment [...] 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 Vaccines: UTD Continued work on healthy diet and consistent aerobic exercise (minimum 150 minutes weekly) were suggested and discussed - already doing well. [facility] 06-05-2022 Miscellaneous Notes Associate d Problem(s): Encounter for well adult exam with abnormal findings Labs as ordered No current anxiety or depression (PHQ9: 0) No substance abuse concerns. Pap Smear: UTD, due May 2022 with OBGYN STI: group home monogamous relationship with 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 Vaccines: UTD [...] in separate encounter documented in this encounter [facility] 04-22-2022 Miscellaneous Notes Associate d Problem(s): Encounter for well adult exam with abnormal findings Labs as ordered No current anxiety or depression (PHQ9: 0) No substance abuse concerns. 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 Vaccines: UTD [...] SECTION; Surgeon: Willie Nash Jr., MD; Location: [facility] OB OR; Service: OBGYN WISDOM TOOTH [...] rashes or discoloration. documented in this encounter [facility] 04-18-2022 History of Presen t illness [...] UTD, due May 2022 with OBGYN STI: group home monogamous relationship with 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 Vaccines: UTD [...] SECTION; Surgeon: Willie Nash Jr., MD; Location: [facility] OB OR; Service: OBGYN WISDOM TOOTH [...] Encounters: 04/18/22 5' 3 08/12/21 5' 3 09/24/21 5' 3 Body mass index is 26.57 [...] rashes or discoloration. documented in this encounter [facility] 08-15-2021 Miscellaneous Notes A guide to [...] this time; mom reports recent feeding; no infant hunger cues noted at this time. Family [...] feeding or with cluster feeding this evening. Infant currently skin to skin with mother; she states infant continues to feed well and her nipples are comfortable. Reviewed increased milk supply, signs/symptoms/treatment of engorgement, signs/symptoms/treatment of mastitis, pumping/storage with return to work. Mother has two pumps including a hands free pump to use at work. Encouraged to continue asking for assistance and did encourage outpatient support/appointment as needed. Ongoing support offered per . Anesthesia Post-op Follow-up Note 2 Days Post-Op [...] note was copied from a baby's chart. [employer] consultant (LC) called to patient room to assist with . Infant is latched to the right breast when LC enters and infant displays a productive suck rhythm with frequent swallows (see flowsheet). Mother pumped x1 earlier this morning and collected 25ML of colostrum. Mother cup fed 10ML at the previous feeding. took 6ML this feeding by cup and syringe feeding. Reviewed feeding plan with mother: breastfeed infant every 3-hours, if poor feeding, follow with [...] for mother, who has carpal tunnel syndrome. Infant latched on the L breast with moderately deep latch, active suck/swallow that began to slow down after 10 minutes. She was still latched with LC exit. Reinforced feeds at least every 3 hours, reviewed breast shaping/compression, continued hand expression. Ongoing support offered per LC. This note was copied from a baby's chart. update: Mother states has been sleepy all day. She did [...] weight: 3.212 kg Gestational age:41w0d Delivery date/time: 004 Apgars: 8/9 Discharge Date: TBD JAY TORRES [id number] 1990 DATE OPERATIVE REPORT SURGEON WILLIE ANSH JR, MD PREOPERATIVE DIAGNOSIS Failure to progress. [...] returned to recovery room in good condition. WILLIE NASH JR, MD D 08/13/2021 01:11 [id number] 08/13/2021 05:00 CAK/MODL Section Delivery Note Diagnosis: Principal Problem: Amniotic fluid leaking Mother's Information Delivery Blood Loss 08/12/21 0200 - 08/13/21 0112 Quantitative Blood Loss - Delivery (mL) Hospital Encounter 676 mL Total 676 mL Rodo Torres [[id number]] Delivery Anesthesia Method: Epidural Operative Delivery Forceps attempted?: No Vacuum extractor attempted?: No [place] Presentation Presentation: Vertex Information date/time: 08/13/2146 Gender: Female Delivery type: , Low Transverse Delivery location: OB Unit Initial disposition: Routine NB Care ?: No Details: Trial of labor?: No categorization: Primary priority: Unscheduled Indications for : Failure to Progress Skin incision type: Pfannenstiel Delivery Providers Delivering clinician: Willie Nash Jr., MD Other personnel: Provider Role Covering Attending Resident Jayda Gibson CNM Distribution Center Associate Chasity Mccarthy RN Delivery Nurse Neelima Solis RN Registered Nurse Delivery Assist Sejal Sanders CNP Nurse Practitioner Cord Vessels: 3 vessels Complications: None Delayed cord clamping?: Yes Cord clamped date/time: 08/13/202147 Cord blood obtained?: No Cord segment obtained?: Yes Gases sent?: Yes Stem cell collection (by Provider)?: No Placenta Date/time: 08/13/202148 Removal: Manual removal Appearance: Intact Disposition: Refrigerator [place] Apgars Living status: Living Scoring Paige: 0 [...] 20 Minute: Apgars assigned by: SEJAL MOREAU [place] Measurements Weight: 7 lb 1.3 oz (3212 g) Length: 20 Head Circumference: 14 Lacerations No data filed Other Procedures Procedures: None Brief Post Operative Note Patient Name: Jay Torres : 1990 (31 y.o.) Date of Service: 08/13/2021 [facility]: [id number] Procedure(s): SECTION Pre-Operative Diagnoses: * Failure to Progress Post-Operative Diagnoses: * Same as Pre-Op Diagnosis Surgeon(s) and Role: * Willie Nash Jr., MD - Primary * Jayda Gibson CNM - Assisting Anesthesiologist: Martina Wright MD GENERAL PARTNER: Kristopher Mcpherson CRNA Offal Roller: Chasity Mccarthy RN Scrub Person: ST Oniel [...] continue to monitor closely and continue POC. GENERAL PARTNER at bedside for epidural Pt ambulated from Triage 4 to L&D rm 2311 with S/O and RN. Orders for pitocin. at 40+6 presents c/o SROM around 0200. Clear fluid noted. Ctx q10 minutes. +FM. documented in this encounter [facility] 08-15-2021 Hospital course Narrative DISCHARGE SUMMARY Patient: Jay Torres Date of : 1990 Site: [facility] Family Provider: Elisha Ballard CNP Admit Date: 08/12/2021 [...] Physician(s) Family Provider: Elisha Ballard CNP, Address: [address] [place] [address] Dr Gong / [facility] [id number] Follow Up: No follow-up provider specified. Additional Information: Patient instructions, including activity, were given to the patient/family at discharge. Please see the After Visit Summary in the electronic medical record for details. Time spent on discharge: < 30 minutes Completed by: Katya Edwards MD on 08/15/21, 9:05 AM documented in this encounter [facility] 08-15-2021 History of Presen t illness Narrative POD#2 doing well af vss inc: c/d/i release home later today or tomorrow 31 yo POD1 LTCS. Doing well, pain controlled. Mod lochia. . AFVSS abd soft, ATTP, incision c/d/i. Postop hgb 10. 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 Consent given [facility] TRIAGE NOTE Chief Complaint Patient presents [...] for IP care documented in this encounter [facility] 08-13-2021 History and physi atul note 31 yo @ 40W6D with ROM H+p reviewed and no changes made documented in this encounter [facility] Evaluation note Diagnosis Amniotic fluid leaking- Primary H/O: section Other postprocedural status [facility] Diagnosis Encounter for well adult exam with abnormal findings- Primary Rectal bleeding Hemorrhage of rectum and anus [facility] Diagnosis Encounter for well adult exam with abnormal findings- Primary Rectal bleeding Hemorrhage of rectum and anus Screening for cardiovascular condition Screening for other and unspecified cardiovascular conditions Screening for lipid disorders [facility]* Attachments The following attachments cannot be sent through Care Everywhere. * Section: Post-op (Bermudian) [facility]* Attachments The following attachments cannot be sent through Care Everywhere. * Rectal Bleeding (Bermudian) * Hemorrhoids (Bermudian) [facility]* Attachments The following attachments cannot be sent through Care Everywhere. * Rectal Bleeding (Bermudian) * Hemorrhoids (Bermudian) [facility] Reason for Referral Status Reason Specialty Diagnoses / Procedures Referred By Contact Referred To Contact Authorized Specialty Services Required/Patie nt's Best Interest Gastroenterology Diagnoses Diarrhea, unspecified type Elisha Ballard CNP [address] [place] [address] Instructions * Patient Instructions* Elisha Ballard, GABY - 12/23/2018 2:00 PM EST Diarrhea: Care [...] The doctor may recommend that you take kzwf-ipy-hfzfvlu medicine, such as loperamide (Imodium), if you [...] Log into your personal health record on [email or web address]://Keystone Technologiest.Aircraft Logs and enter W335 in the Education box to learn more about Diarrhea: Care Instructions. Current as of: August 10, 2018 Content Version: 11.9 0808-8686 [employer]. Care instructions adapted under license by your healthcare professional. If you have questions about a medical condition or this instruction, always ask your healthcare professional. [employer] disclaims any warranty or liability for your [...] you are older than 45 and are -Czech or have a father or brother who got prostatecancer when he was younger than 65. When should you call for help? Watch closely for changes in your health, and be sure to contact your doctor if you have any problems or symptoms that concern you. Where can you learn more? Log into your personal health record on https://Keystone Techn[employer].Aircraft Logs and enter P072 in the Education box to learn more about Well Visit, Ages 18 to 50: Care Instructions. Current as of: February 12, 2018 Content Version: 11.9 3739-8825 [employer], [employer]. Care instructions adapted under license by your healthcare professional. If you have questions about a medical condition or this instruction, always ask your healthcare professional. [employer] disclaims any warranty or liability for your [...] breath. For a Fever Take a fever cdc associate. If you choose to or if your fever is very high, you can take a fever cdc associate.Acetaminophen is what is usually recommended. While ibuprofen is also a fever cdc associate, there is some concern that it may [...] Log into your personal health record on [email or web address]://Zealify.Aircraft [email or web address] and enter M375 in the Education box to learn more about Learning About Hypoxemia. Current as of: April 26, 2019 Content Version: 12.3 5899-1043 [employer]. Care instructions adapted under license by your healthcare professional. If you have questions about a medical condition or this instruction, always ask your healthcare professional. [employer] disclaims any warranty or liability for your use of this information. [facility] COVID-19 Post-swabbing Instructions We will do our best to update you as soon as we receive your test results, but if we had to send your test to be run at the lab, you may see the results on Zealify or receive a call from [facility] before we are able to contact you. [...] results. - If you have an active Zeal[employer] account, and your COVID-19 test is negative (not detected), then you will be notified through your Zealify account. You should call the urgent care if you have any further questions. - If your COVID-19 test is positive (detected), you will receive a phone call to discuss your results and answer any questions you might have at that time. Please make sure [facility] has your updated phone number so we can contact you. [facility] will notify the [facility] of any positive results to [...] and warm water and/or alcohol based hand tissue technologist, scrubbing your hands for at least 20 [...] Other COVID Questions? 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 no : 0 Para: 0 [...] Work Health. documented in this encounter* Carla Mercer DO - 11/24/2019 11:32 AM EST [facility] [address] [id number] Jay Torres is here today for follow-up. [...] diarrhea she can use something like loperamide hrnk-nod-ytmrvvo and we have discussed a titration and dosing of this as well Thank you very much for allowing me to participate in your patient's care and if you have any further questions please do not hesitate to call. Sincerely; Carla Mercer DO CC: No ref. provider found documented in this encounter* Jane Segovia PA-C - 10/24/2020 6:07 PM EST Patient Name: [facility] Location: Jay Torres [address] [place] [address] [address] [place] [address] Date Of : Date Of Visit: 1990 10/24/2020 MRN# Provider: [id number] Jane Segovia PA-C Chief Complaint Patient presents [...] breath. For a Fever Take a fever cdc associate. If you choose to or if your fever is very high, you can take a fever cdc associate.Acetaminophen is what is usually recommended. While ibuprofen is also a fever cdc associate, there is some concern that it may [...] Log into your personal health record on https://Keystone Techn[employer]iest.Aircraft Logs and enter M375 in the Education box to learn more about Learning About Hypoxemia. Current as of: April 26, 2019 Content Version: 12.3 7793-8556 [employer]. Care instructions adapted under license by your healthcare professional. If you have questions about a medical condition or this instruction, always ask your healthcare professional. [employer] disclaims any warranty or liability for your use of this information. [facility] COVID-19 Post-swabbing Instructions We will do our best to update you as soon as we receive your test results, but if we had to send your test to be run at the lab, you may see the results on [email or web address] or receive a call from [facility] before we are able to contact you. [...] results. - If you have an active Ze[employer]ify account, and your COVID-19 test is negative (not detected), then you will be notified through your Zealify account. You should call the urgent care if you have any further questions. - If your COVID-19 test is positive (detected), you will receive a phone call to discuss your results and answer any questions you might have at that time. Please make sure [facility] has your updated phone number so we can contact you. [facility] will notify the [place] [facility] of any positive results to [...] and warm water and/or alcohol based hand tissue technologist, scrubbing your hands for at least 20 [...] Other COVID Questions? CDC - https://www.cdc.gov/coronavirus/2019-ncov/index.html - https://www.cdc.gov/coronavirus/2019-ncov/yf-tnd-ssl-sick/quarantine.html [facility] - Website: https://coronavirus.[place].gov/wps/portal/gov/covid-19/home - Hotline: 827-0-VZU-ODH (966-689-6417) [facility]: https://blog.Aircraft Logs/series/xqqbo-66-pluavgihuqw-toolkit/ documented in this encounter* Salma Guthrie, - 01/16/2021 8:19 AM EST Assessment/Plan Problem [...] care. 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 Lives at home with . Good [...] file Gets together: Not on file Attends congregational service: Not on file Active member of [...] 1:32 PM documented in this encounter* Carla Mercer DO - 07/07/2019 10:25 AM EDT [facility] [address] [id number] Jay Torres is a 29 y.o. female [...] rash. She denies trying any type of ktsu-rga-ozaiebz medicines for her symptoms at this point. [...] Start Date End Date Taking? Authorizing Provider drospirenone-ethinyl estradiol (OCELLA) 3-0.03 mg per tablet 06/19/15 [...] file Gets together: Not on file Attends congregational service: Not on file Active member of [...] A total of 35 minutes were spent dram-sk-srti with the patient during this encounter and [...] Sincerely; Carla Mercer DO CC: Elisha Ballard, SAXOPHONE ASSEMBLER This dictation has been transcribed via [email or web address].com and has not been reviewed and may [...] FoundDocuments on File Type Date Recorded Patient Dental Chairside Assistant Expl anation Advance Directives and Livin g Will 07/11/2019 6:18 PM Documents on File Type Date Recorded Patient Dental Chairside Assistant Expl anation Advance Directives and Living Will Documents on File Type Date Recorded Patient Dental Chairside Assistant Expl anation Advance Directives and Livin g Will 07/11/2019 6:18 PM Documents on File Type Date Recorded Patient Dental Chairside Assistant Expl anation Advance Directives and Livin g [...] Everywhere. * Exposure: Blood and Body Fluids ([place]ian) * [place] ED BODY FLUID EXPOSURE documented in this encounter Additional Source Comments Reason for Visit (unrecogniz ed section and content) Reason Comments Annual Exam Yearly physical Reason Comments ED Follow-up Reason Comments Irritable Bowel Syndrome Diarrhea Reason Comments Injections hep a Reason Comments Covid-19 Screening x4days, lost of tast e and smell, cough, congestion Reason Comments Annual Exam Reason Comments Diarrhea Status Reason Specialty Diagnoses / Procedures Referred By Contact Referred To Contact Closed Specialty Services Required/Patien t's Best Interest Gastroenterology Diagnoses Diarrhea, unspecified type Elisha Ballard CNP [address] [place] [address] Carla Mercer, [address] [place] [address] Reason Comments Body Fluid Exposure Status Reason Specialty Diagnoses / Procedures Referred By Contact Referred To Contact Pending Review Reason Comments Rupture of Membranes Specialty Diagnoses / Procedures Referred By Contac t Referred To Contact Diagnoses Amniotic fluid leaking Referral ID Status Reason Start Date Expiration Date Visits Re quested Visits Authorized [id number] 1 1 Reason Comments Annual Exam Had [...] ized section and content) DATE CREATED AUTHOR 07/15/[address] [facility] DATE CREATED AUTHOR AUTHOR'S ORGANIZ ATION 10/25/2020 [facility] DATE CREATED AUTHOR AUTHOR'S ORGANIZ ATION 08/18/2021 [facility] DATE CREATED AUTHOR AUTHOR'S ORGANIZ ATION 04/21/2022 [facility] DATE CREATED AUTHOR AUTHOR'S ORGANIZ ATION 07/28/[address] [facility] DATE CREATED AUTHOR AUTHOR'S ORGANIZ ATION 06/24/2024 [facility] Abdirizak Han DO - 07/11/2019 6:02 PM Fawn Helm RN - 07/11/2019 5:45 PM EDT ED Notes (unrecognized secti on and content) PCP: Elisha Ballard, GABY Chief Complaint Patient presents with Body Fluid Exposure HPI: 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 Allergies: Allergies Allergen Reactions Penicillins Rash Medications: Jay Torres [place] Medication Instructions Prior to Surgery [id number] Printed on:07/11/19 1759 Medication Information Take last dose on Take [...] Administ ered Medications (unrecognized section and content) Medication Order 08/13/2021 08/14/2021 08/15/2021 azithromycin (ZITHROMAX) 500 mg in sodium chloride (NS) 0.9% 250 mL (vialmate) (COMPLETED) 500 mg, Intravenous, Administer over 60 Minutes, Once, On 08/13/21 at 0045, For 1 dose, Labor & Delivery, Administer within 1 hour before incision., Indication: Other (specify), Indication: Pre Section 0019 (New Bag - Provider: Chasity Mccarthy RN) ceFAZolin (ANCEF) IVPB 2 g (premix) (COMPLETED) 2,000 mg, Intravenous, at 100 mL/hr, Once, On 08/13/21 at 0045, For 1 dose, Labor & Delivery, Administer within 1 hour prior to incision., Indication: Other (specify), Indication: Pre Section 0006 (New Bag - Provider: Chasity Mccarthy RN) citric acid-sodium citrate (BICITRA) solution 30 mL (COMPLETED) 30 mL, Oral, Once, On 08/13/21 at 0045, For 1 dose, Labor & Delivery, One hour prior to surgery. 0009 (Given - Provider: Chasity Mccarthy RN) ibuprofen (ADVIL,MOTRIN) tablet 400 mg (CANCELED) 400 mg, Oral, Every 6 hours, First dose on 08/13/21 at 0530, For 48 hours, , Administer Ketorolac if patient is NPO or not tolerating oral intake Do Not Crush or Chew if administering orally due to bitter taste. May be crushed if given via tube. 0658 (See Alternative - Provider: Elisha Miranda RN)1326 (See Alternative - Provider: Lamin Baeza, RN)194 (Given - Provider: Geno Goins RN) 020 (Given - Provider: Geno Goins RN)0936 (Given - Provider: Yadira Varma, MARIBELL) ketorolac (TORADOL) injection 30 mg (CANCELED) 30 mg, Intravenous, Every 6 hours, First dose on 08/13/21 at 0530, For 48 hours, , Administer Ketorolac if patient is NPO or not tolerating oral intake. Ketorolac (TORADOL) has an automatic stop date of 48 hours. 58 (Given - Provider: Elisha Miranda RN)132 (Given - Provider: Lamin Baeza RN)194 (See Alternative - Provider: Geno Goins RN) 020 (See Alternative - Provider: Geno Goins RN)0936 (See Alternative - Provider: Yadira Varma, MARIBELL) ondansetron (ZOFRAN-ODT) disintegrating tablet 8 mg (COMPLETED) 8 mg, Oral, Once, On 08/13/21 at 0045, For 1 dose, Labor & Delivery, Orally disintegrating tablet: Open blister pack and place tablet on the tongue; tablet is formulated to dissolve on the tongue without water; do not split tablet. Formulation requires tablet remain in sealed package until immediately prior to dose being administered. 0009 (Given - Provider: Chasity Mccarthy RN) Continuous Medication Order 08/13/2021 08/14/2021 08/15/2021 lactated [...] asad-units/min 0515 (New Bag - Provider: Elisha Miranda, RN) PRN Medication Order 08/13/2021 08/14/2021 08/15/2021 acetaminophen (TYLENOL) tablet 650 mg 650 mg, Oral, Every 4 hours PRN, mild pain, Starting on 08/13/21 at 0432, 0936 (Given - Provider: Yadira Varma, MARIBELL)1335 (Given - Provider: Yadira Varma, MARIBELL)1741 (Given - Provider: Yadira Varma, MARIBELL)2208 (Given - Provider: Susan Ernst, MARIBELL) 0542 [...] If indicated, administer prior to discharge. Provide [facility] vaccine information sheet(s) (VIS) for patient for [...] RN)2041 (Given - Provider: Susan Ernst RN) 0838 (Given - Provider: Ritu Wiggins, MARIBELL) [...] Ernst RN) 0256 (Given - Provider: Susan Ernst RN)0838 (Given - Provider: Ritu Wiggins, MARIBELL)1546 (Given [...] If indicated, administer prior to discharge. Provide [facility] vaccine information sheet(s) (VIS) for patient for [...]
Care Teams (unrecognized sec tion and content) Architecture Consultant Relationship Specialty Start Date End Date Elisha Ballard, SAXOPHONE ASSEMBLER [address] [place] [address] PCP - General Nurse Practitioner 08/11/21 Architecture Consultant Relationship Specialty Start Date End Date Edu Olivares MD [address] [place] [address] Dr [address] [place] [id number] PCP - PATRICIO Attributed Provider - [place] [employer] 09/18/21 11/17/50 Lamin Freedman MD [address] [place] [address] Dr. [address] [place] [id number] PCP - General Family Medicine 04/18/22 Architecture Consultant Relationship Specialty Start Date End Date Edu Olivares MD [address] [place] [address] Dr [address] [place] [address] PCP - PATRICIO Attributed Provider - [place] [employer] 09/18/21 11/17/50 Lamin Freedman MD [address] [place] [address] Dr[address] [place] [id number] PCP - General Family Medicine 04/18/22 FOR [...] BE BASED ON THE PRIMARY CLINICAL RECORDS. [employer] [facility]. provides no warranty or guarantee of the accuracy or completeness of information in this document.
[2024-09-14 07:25] LABS: Glucose GTT-Gestation. Fasting 97 mg/dL (<105)
[2024-09-14 09:12] LABS: Glucose GTT-Gestational 1 Hr 151 mg/dL (<190)
[2024-09-14 09:15] LABS: Glucose GTT-Gestational 2 Hr 131 mg/dL (<165)
[2024-09-14 10:48] LABS: Glucose GTT-Gestational 3 Hr 112 L (<145)
== END | disposition home or self-care (01) ==
LOC: LAB 06:40
PROVIDERS: PCP Family Medicine; Referring Provider Obstetrics & Gynecology; Visit Provider Obstetrics & Gynecology
DX: Z13.1 Encounter for screening for diabetes mellitus (principal); O99.810 Abnormal glucose complicating pregnancy; Z3A.00 Weeks of gestation of pregnancy not specified
CPT/HCPCS: 36415; 82951; 82952

== ENCOUNTER → 2024-10-26 | Outpatient (CLI) | payer OTHER, SELFPAY | END | disposition home or self-care (01) | LOC: LABSPEC 10:44 | PROVIDERS: PCP Family Medicine; Referring Provider Obstetrics & Gynecology; Visit Provider Obstetrics & Gynecology | DX: O09.92 Supervision of high risk pregnancy, unspecified, second trimester (principal); Z3A.00 Weeks of gestation of pregnancy not specified | CPT/HCPCS: 87081 ==

== ENCOUNTER 2024-11-02 11:15 | Inpatient (IN) | payer OTHER, SELFPAY ==
[2024-11-02] VITALS (15 sets, daily range): BP systolic 102–126; BP diastolic 60–101; PULSE 81–106; RESP 14–20; TEMP 36.1–36.4; O2SAT 95–99; BMI 33.9
[2024-11-02] MEDS: Lactated Ringers 1,000 ML 999 ML IV (12:30)
[2024-11-02 12:46] LABS: Absolute Lymphocyte Count 1.97 X10^3/uL (0.83-4.51); Absolute Neutrophil Count 11.6 X10^3/uL (2.0-7.7); Basophil# 0.03 X10^3/uL; Basophil% 0.2 % (0-1); Eosinophil# 0.05 X10^3/uL; Eosinophils% 0.3 % (0-5); Hematocrit 36.2 % (37-47); Hemoglobin 12.1 g/dL (12.0-15.0); Lymphocyte # 1.97 X10^3/ul (0.83-4.51); Lymphocyte % 13.7 % (19-41); Mean Corp Hgb Conc 33.4 g/dL (32-36); Mean Corpuscular Hgb 28.5 pg (27.0-32.0); Mean Corpuscular Volume 85.4 fL (81-99); Mean Platelet Vol. 10.7 fl (6.2-12.0); Monocyte# 0.64 X10^3/uL; Monocyte% 4.4 % (0-10); NRBC Flagged by Analyzer 0 % (0-5); Neutrophil # 11.62 X10^3/uL (2.7-7.7); Neutrophil % 80.7 % (47-70); Platelet Count 237 K/mm3 (150-450); RBC Distribution Width CV 13.5 % (11.6-14.6); RBC Distribution Width SD 41.7 fl (35.1-43.9); Red Blood Count 4.24 M/mm3 (4.2-5.4); White Blood Count 14.4 K/mm3 (4.4-11.0)
--- NOTE | 2024-11-02 14:35 | HP.PCM_ITS ---
History and Physical Date of Admission: 11/02/24 Intake Vital Signs 07/06/2414:46 10/26/2410:04 11/02/2410:14 Height 5 ft 3 in 5 ft 3 in 5 ft 3 in Weight: 194 lb BMI 34.3 BP 114/74 Intake Visit Reasons: 38 WK OB *DOC ONLY* Cdl Driver Required: No Is patient in pain?: No Feel stressed/tense/nervous/anxious/difficulty sleeping: not at all Allergies Penicillins Adverse Reaction (Mild, Verified 11/02/24 12:03) Rash Medications ?Medication ?Instructions ?Recorded ?Confirmed ?Type [id number] 29 mg-folic acid 1 1 ea PO DAILY supplement 01/04/24 11/02/24 History mg-om3 430 mg tablet-capsule,del.rel Last Menstrual Period: 02/11/24 Zika: Zika virus screening: Negative : Yes Have you fallen in the past year?: No PFSH PFSH Medical History Chlamydia Surgical History S/P appendectomy [place] teeth extracted History of delivery Family History FatherNon-Hodgkin lymphoma of extranodal and solid organ sites Cancer, Onset Age: 64 ProstateGrandmother Breast cancerGrandfather FH: prostate cancer Cancer, Onset Age: 87 Paternal Lung Social History adopted: No household members: spouse and children number of children: 1 current occupational status: employed current occupation: [employer] pets and animals: Yes pets and animals: dog(s) history of recent travel: No sexually active: Yes Smoking Status: Never smoker alcohol intake: never substance use type: does not use well-balanced diet: daily or most days caffeine: Yes Type: coffee Number of servings: 1 eating out: rarely or never during the past year weight has: remained stable what type of physical activity do you participate in: walking and weight training frequency: 5-6 times per week duration: 30-45 minutes/day nate/alevism: Amish seatbelt use: always do you feel safe at home: Yes additional social history: Thomas- RN- Starting Parent Trainer History 2 Elective abortions Hx Para 1 Spontaneous abortions Hx # Term Pregnancies 1 Ectopic pregnancies Hx # Pregnancies Multiple births # of living children 1 Past Pregnancies Del. Date Name GA/Weeks Outcome Route Bth Weight Gen Labor Lgth Anesthesia Del Locatn Provider FOB 08/13/21 raffi 41 live - full term 7#1o z Female ? epidural Giovanna Jewish, Kell ? Thomas Delivery Date: 08/13/21 Last Updated by: Dianne Moise failure to progress HPI 38 WK OB *DOC ONLY* Details: JAY LOU is a 34 year old who presents for routine OB visit. OB Visit JASON Calculator ? Estimated Delivery Date Method Current WG Current Estimate 11/17/24 LMP (Certain) 37w 6d Other Estimates 11/19/24 Ultrasound #1 37w 4d Expected Delivery Route/Plan plan RLTCS 39 weeks with SM 11/12 Specific Issue/Plans Covid status: [] Flu vaccine: [] Tdap vaccine: given Rhogam: na LARC form signed: declined movement and labor precautions reviewed. Problem list reviewed and updated with the most current plan of care details and appropriate orders placed. Relevant counseling for the gestational age provided. Continue routine care and follow up unless otherwise noted in visit notes/problem list details Initial Weight: Not Recorded Date -?-?-?-?-?-?-?-?-?-?-?-?- EGA Weight BP Urine Prot -?-?-?-?-?-?-?-?-?-?-?-?- Glucose FHR FuHt Pres Dilation -?-?-?-?-?-?-?-?-?-?-?-?- Effaced St Visit Note 04/07/24-?-?-?-?-?-?-?-?-?-?-?-?- 8w 0d 169 lb 115/76 -?-?-?-?-?-?- ?-?-?-?-?-?- 141 ? ? -?-?-?-?-?-?-?-?-?-?-?-?- ? JV- CR L consistent with LMP. desires NIPT. wants rpt cs 05/12/24-?-?-?-?-?-?-?-?-?-?-?-?- 13w 0d 175 lb 8 oz 120/74 Negative -?-? -?-?-?-?-?-?-?-?-?-?- Negative 163 ? ? -?-?-?-?-?-?-?-?-?-?-?-?- ? MH-No VB. Nausea improved. Brief US confirm live IUP 06/08/24-?-?-?-?-?-?-?-?-?-?-?-?- 16w 6d 179 lb 125/76 Negative -?-? -?-?-?-?-?-?-?-?-?-?- Negative 150 ? ? -?-?-?-?-?-?-?-?-?-?-?-?- ? SM- no vb crmaping plan RLTCS 39 weeks 07/06/24-?-?-?-?-?-?-?-?-?-?-?-?- 20w 6d 180 lb 136/82 Negative -?-? -?-?-?-?-?-?-?-?-?-?- Negative 140 ? ? -?-?-?-?-?-?-?-?-?-?-?-?- ? Sm- no vb lof good fm no regular ctx 08/03/24-?-?-?-?-?-?-?-?-?-?-?-?- 24w 6d 184 lb 8 oz 113/71 Negative -?-? -?-?-?-?-?-?-?-?-?-?- Negative 125 25 ? -?-?-?-?-?-?-?-?-?-?-?- ?- ? JV- no lof, vaginal bleeding, or dec fm. recommend go to health dept for RSV after 28 weeks if desires vaccine. glucola given. plan to do next visit. tdap after 28 weeks discussed. 08/31/24-?-?-?-?-?-?-?-?-?-?-?-?- 28w 6d 187 lb 136/84 -?-?-?-?-?-?- ?-?-?-?-?-?- 135 28 ? -?-?-?-?-?-?-?-?-?-?-?- ?- ? SM- no vb lof good fm no regular ctx tdap done 3 hour gtt ordered 09/14/24-?-?-?-?-?-?-?-?-?-?-?-?- 30w 6d 191 lb 133/75 Negative -?-? -?-?-?-?-?-?-?-?-?-?- Negative 130 30 ? -?-?-?-?-?-?-?-?-?-?-?- ?- ? SM- no vb lof good fm no regular ctx.passed 3 hour 09/28/24-?-?-?-?-?-?-?-?-?-?-?-?- 32w 6d 192 lb 131/85 Negative -?-? -?-?-?-?-?-?-?-?-?-?- Negative 129 31 ? -?-?-?-?-?-?-?-?-?-?-?- ?- ? JV- no lof, vaginal bleeding, or dec fm. has appt for rsv vaccine next week at [facility] 10/12/24-?-?-?-?-?-?-?-?-?-?-?-?- 34w 6d 191 lb 6 oz 117/76 Negative -?-? -?-?-?-?-?-?-?-?-?-?- Negative 130 34 Cephalic -?-?-?-?-?-?-?-? -?-?-?-?- ? SM- no vb lof good fm n oreular ctx 10/19/24-?-?-?-?-?-?-?-?-?-?-?-?- 35w 6d 192 lb 129/83 Negative -?-? -?-?-?-?-?-?-?-?-?-?- Negative 140 35 Cephalic -?-?-?-?-?-?-?-? -?-?-?-?- ? SM- no vb lof good fm no rgular ctx 10/26/24-?-?-?-?-?-?-?-?-?-?-?-?- 36w 6d 191 lb 8 oz 109/73 Negative -?-? -?-?-?-?-?-?-?-?-?-?- Negative 130 36 Cephalic -?-?-?-?-?-?-?-? -?-?-?-?- ? SM- no vb lof good fm nor egular ctx gbs done 11/02/24-?-?-?-?-?-?-?-?-?-?-?-?- 37w 6d 194 lb 114/74 Negative -?-? -?-?-?-?-?-?-?-?-?-?- Negative 120 35 CephalicBreech -?-?-?-?-? -?-?-?-?-?-?-?- ? SM- no vb lof good fm no reuglar ctx FH measuring lowSM- no vb lof good fm no reuglar ctx FH measuring low. bedside magdaleno breech and magdaleno 5 ACOG First Trimester First Trimester: Second Trimester Second Trimester: Signs and Symptoms of Labor, Selecting a care provider, Reproductive Life Planning & Contreception, Care Planning, Tobacco Cessation, Depression/Anxiety and Intimate Partner Violence Third Trimester Third Trimester: Pain Management Plans, Labor support person(s), Immediate Larc, Movement Monitoring and Feeding Yes ; Discussed Trial of Labor after Counseling and Discussed Circumcision preference ROS Const Reports system reviewed and no additional complaints, except as documented Card Reports system reviewed and no additional complaints, except as documented Resp Reports system reviewed and no additional complaints, except as documented GI Reports system reviewed and no additional complaints, except as documented and Reports nausea Reports system reviewed and no additional complaints, except as documented Musc Reports system reviewed and no additional complaints, except as documented Exam Const General: cooperative, healthy appearing, comfortable and anxious [facility] Head: normal to inspection Nose: external nose normal Face and sinus: normal facial exam Neck Neck: normal visual inspection, full ROM and no lymphadenopathy Thyroid: thyroid normal Chest Chest palpation & inspection: normal inspection of the chest Resp Effort & Inspection: normal respiratory effort GI Inspection: normal to inspection Palpation: soft and other (gravid uterus) Other: Cervical Exam: Extrem General: pedal edema Results POC Urinalysis 2 Dip (Clinic) Office Urine Glucose Negative ? Last Edit by Kim Acosta on 11/02/24 10:22 Office Urine Protein Negative ? Last Edit by Kim Acosta on 11/02/24 10:22 Coding Level of Care Code OB Routine Diagnoses Abnormal glucose affecting O99.810 Supervision of high risk in second trimester O09.92 Trimester: second trimester Family history of anesthesia complication Z84.89 History of section Z98.891 37 weeks gestation of Z3A.37 Weeks of gestation: 37 weeks Assessment and Plan Assessment and Plan (1) Abnormal glucose affecting : Status: Acute Comment: abnormal 1 hr. 3 hour ordered (2) Supervision of high-risk : Status: Acute Qualifiers: Trimester: second trimester Qualified Code(s): O09.92 - Supervision of high risk , unspecified, second trimester Comment: PRR , JASON 11/17/24, Alvino East, Thomas (3) Family history of anesthesia complication: Status: Acute Comment: cardiac arrest during napwwdoadgqh75/2023. (4) History of section: Status: Acute Comment: failure to progress; probably plans repeat CS, scheduled for 11/12 @ 7:15 with SM (5) : Status: Acute Qualifiers: Weeks of gestation: 37 weeks Qualified Code(s): Z3A.37 - 37 weeks gestation of Comment: declines carrier and afp. NIPT LR, nl anatomy Orders: Orders POC Urinalysis 2 Dip (Clinic) Today After discussing the patient's diagnosis and treatment plan options, patient wishes to proceed with surgical management. I have discussed with the patient the risks, benefits, and alternatives of the procedure which include but are not limited to risks of anesthesia, bleeding, infection, possible damage to bowel, bladder, or surrounding vasculature which could lead to additional surgery to evaluate any complications. Patient agrees to procedure and wishes to proceed. ACOG/uptodate references given for additional information regarding procedure.
[2024-11-02] MEDS: Sodium Citrate/Citric Acid 30 ML UDC PO (14:39)
[2024-11-02] MEDS: Acetaminophen 500 MG Tablet 1000 MG PO ×2 (14:39→20:42)
[2024-11-02] MEDS: Cefazolin 2 GM in Syringe IV (15:26)
[2024-11-02] MEDS: Oxytocin 15 Units/NS 250ml 15 UNITS/250 ML IV.SOLN 83 UNITS IV (16:25)
[2024-11-02] MEDS: Ketorolac 30 MG/ML Syringe IV (17:32)
[2024-11-02 18:54] LABS: Syphilis Antibodies Non-reactive
--- NOTE | 2024-11-02 19:55 | OP.PCM_ITS ---
Assessment & Plan (1) Abnormal glucose affecting : COMMENT: abnormal 1 hr. 3 hour ordered (2) Supervision of high-risk : QUALIFIERS: Trimester: second trimester Qualified Code(s): O09.92 - Supervision of high risk , unspecified, second trimester COMMENT: PRR , JASON 11/17/24, Alvino GLEASON Kita, Thomas (3) Family history of anesthesia complication: COMMENT: cardiac arrest during bvujuhjludwo78/2023. (4) History of section: COMMENT: failure to progress; probably plans repeat CS, scheduled for 11/12 @ 7:15 with ANTONIO (5) : QUALIFIERS: Weeks of gestation: 37 weeks Qualified Code(s): Z3A.37 - 37 weeks gestation of COMMENT: declines carrier and afp. NIPT LR, nl anatomy (6) Oligohydramnios in third trimester: (7) delivery delivered: COMMENT: ANTONIO CRAIGTCColby geronimo 38 oligo breech Maternal Data Information JASON Calculator Estimated Delivery Date Method Current WG Current Estimate 11/17/24 LMP (Certain) 37w 6d Other Estimates 11/19/24 Ultrasound #1 37w 4d Final JASON Source: LMP Operative Report (OB) Cecarean Details Procedure Type: low transverse Date of Procedure: 11/02/24 Procedure Start Time: 15:36 Procedure Stop Time: 16:06 Pre-Operative Diagnosis: Other Other Pre-Operative diagnosis: see a/p comments Post-Operative Diagnosis: Same as Pre-operative diagnosis Classification: Scheduled Type of Anesthesia: Spinal Special Medications: none Antibiotic Given: Ancef 2 grams IV x1 Drain: Perry to straight drain Estimated Blood Loss: 500 Fluids Replaced: crystalloid Findings Description of surgery: Spinal anesthesia was placed without difficulty. Perry catheter was placed The patient was placed in the dorsal supine position with leftward tilt. Patient was prepped and draped in the normal sterile fashion. Pfannenstiel skin incision was made with the scalpel and carried through to the underlying layer of fascia with the scalpel. Fascia was nicked in the midline and the incision extended laterally. The rectus bellies were dissected off superiorly and inferiorly with out complication both sharply and bluntly. The peritoneum was entered digitally. The incision was stretched and a low transverse uterine incision was made with the scalpel. The buttox was delivered atraumatically and the right and left legs were swept anteriorly and delivered, followed by the body and the arms which were swept anteriorly and delivered. Gentle traction was placed on the mentum to flex the head which was delivered without complication. The cord was clamped and cut and the was handed off to awaiting nurse. The placenta was delivered spontaneously immediately following and was noted to be intact and have a three-vessel cord. The uterus was exteriorized cleared of all clots and debris, and the incision was closed in a single layer closure using #1 Monocryl. The ovaries and fallopian tubes were noted to be within normal limits. The uterus was returned to the maternal abdomen and gutters were cleared of all clots and debris. The peritoneum was closed with 3-0 Monocryl in a running fashion. Gloves were changed prior to fascial closure. Fascia was closed with 0 PDS in a running fashion. Subcutaneous tissue was copiously irrigated and the skin was closed with 3-0 Monocryl in a subcuticular fashion. Mepilex dressing was applied without complication. Patient was taken to recovery in stable condition. It was discussed with the patient that based on the clinical information obtained during this encounter, combined with her history, at this time I would recommend cesareans for future deliveries if further pregnancies are desired. Surgical findings: nl uterus tubes ovaries Presentation: Raul Breech Amniotic Membrane Rupture Type: Artificial Amniotic Fluid Description: Clear Specimen collected: Yes Description of specimen(s) removed: placenta and baby Cord Vessel Description: 3 Vessels Delayed Cord Clamping: Yes Material Chaser child development director: Yes Chip Machine Operator: Mary Carmen Donaldson Tasks completed by neurology physician assistant: Opening & closing, Retracting and Other (assisting in delivery of the ) Additional orthotics assistant?: No Complications Complications: No Admit VTE Documentation VTE Present on Admission: No VTE Mechan Device Prophylaxis: SCD's Procedures Urinary/Genital [id number]: [id number] Delivery [facility]
--- NOTE | 2024-11-02 19:58 | DCINST_ITS ---
Discharge Instructions Diet Discharge Diet: No restrictions DC O2, CPAP, BIPAP needs Additional Home O2 Discharge instructions: No Dressing / Incision Discharge Activity: May Not Drive (for 2 weeks or while taking narcotic pain medications.), May Shower and May Take a Tub Bath (in 7 days) May shower in (days): 0 May resume sexual activity in: 4-6 weeks Weight Bearing Status: Full weight bearing Lifting Restrictions: 20 pounds Dressing / Incision Call your doctor if your incision/area has: Continuous Slow Oozing, Sudden Increased Bleeding, Increased Pain/ Swelling, Increased Redness and Foul Smelling Discharge Call your doctor if you observe: Fever of 101 or Higher and Using more than 1 pad per hour (for 2 hours) Suture Line Care: Avoid Pulling/Pushing and Avoid Pinching/Bending Cleanse incision/area with: Soap & Water and Keep Dressing Clean & Dry Follow Up Care Please Follow Up With: Shahida Bills MD When: Call [phone] to make an appointment for an incision check in 1-2 weeks. Test Results: Test results from this visit will be discussed in further detail at your follow- up appointment, if applicable. Discharge Plan Admission Admit Date/Time: 11/02/24 11:15 Attending Provider: Shahida Bills Primary Care Provider: Summer Badillo Discharge Orders/Prescriptions Prescriptions: New hydrocodone-acetaminophen 5-325 mg tablet 1 tab PO Q6H PRN (Reason: pain) 5 Days Qty: 20 0RF naproxen 500 mg tablet 500 mg PO BID PRN PRN (Reason: Pain) Qty: 30 1RF No Action vit [id number]-[id number] 29-1-430 mg combo pack,tablet and cap,DR 1 ea PO DAILY Referrals / Follow Up: Summer Badillo MD [Primary Care Provider] - Disposition Disposition (needs filled in before D/C Order can be placed): Home, Self Care
--- NOTE | 2024-11-02 22:47 | NURSING ---
patient asked if IV can be removed. This RN educated, Patient stated she is ok if the iv will need to be placed again. Iv was starting to come out, RN D/C Iv at this time
--- NOTE | 2024-11-02 23:47 | WOUNDNOTE ---
patient refused toradol at this time. Patients IV had to be removed at 2237 due to the tape coming off and the IV cath coming out of the patients wrist. This RN educated the patient on the need for a IV and asked to replace the Iv that came out. Patient stated if there is an emergency she will have a new one placed but at this time does not want one. RN stated that she has toradol due at 2331. Patient stated her pain is manageable and would like her medications by mouth. RN discussed with charge nurse if this was okay. Shingle Shearing Machine Operator stated this was okay and will update yobany Ko on POC.
--- NOTE | 2024-11-02 23:56 | NURSING ---
tech writer Jessee Mckeon verified with Marycarmen coelho that its is okay to start PO naproxen now and D/C IV toradol. Marycarmen coelho stated to use PO oxycodone for break through pain. This Rn verbalized understanding
[2024-11-03] VITALS (9 sets, daily range): BP systolic 103–119; BP diastolic 62–78; PULSE 77–100; RESP 16; TEMP 36.1–36.8; O2SAT 87–99
[2024-11-03] MEDS: Naproxen 500 MG Tablet PO ×4 (00:02→23:09)
[2024-11-03] MEDS: Acetaminophen 500 MG Tablet 1000 MG PO ×4 (02:39→21:47)
[2024-11-03] MEDS: Enoxaparin 40 MG/0.4 ML Syringe SC (05:26)
[2024-11-03 06:03] LABS: Hematocrit 33.6 % (37-47); Hemoglobin 10.9 g/dL (12.0-15.0); Mean Corp Hgb Conc 32.4 g/dL (32-36); Mean Corpuscular Hgb 28.1 pg (27.0-32.0); Mean Corpuscular Volume 86.6 fL (81-99); Mean Platelet Vol. 10.7 fl (6.2-12.0); Platelet Count 218 K/mm3 (150-450); RBC Distribution Width CV 13.5 % (11.6-14.6); Red Blood Count 3.88 M/mm3 (4.2-5.4); White Blood Count 14.5 K/mm3 (4.4-11.0)
[2024-11-03] MEDS: Senna/Docusate Sodium 1 Tablet PO (09:50)
--- NOTE | 2024-11-03 11:24 | PN.OBGYN_ITS ---
Subjective Subjective Patient doing well without complaints. Tolerating PO. Ambulating and voiding without difficulty. feeding well. Denies chest pain, shortness of breath, calf pain/swelling, fevers, chills, lightheadedness. Objective Data Objective Data Vital Signs: Vital Signs Temp Pulse Resp BP Pulse Ox O2 Del Method 97.4 F L 83 16 103/62 99 Room Air 11/03/24 08:06 11/03/24 08:06 11/03/24 08:06 11/03/24 08:06 11/03/24 08:06 11/03/24 08:06 Oxygen Delivery Method Room Air Weight: 191 lb 9.307 oz Body Mass Index (BMI) 33.9 Intake & Output: Intake and Output for Last 24 Hours 11/01/24 11/02/24 11/03/24 23:59 23:59 23:59 Intake Total 1244.1 / 1244.1 Output Total 900 / 900 1150 / 1150 Balance 344.1 / 344.1 -1150 / -1150 Lab / Micro Data 11/03/24 05:30 Labs: Laboratory Results - last 24 hr 11/02/24 11:30: WBC 14.4 H, RBC 4.24, Hgb 12.1, Hct 36.2 L, MCV 85.4, MCH 28.5, MCHC 33.4, RDW Std Deviation 41.7, RDW Coeff of Jana 13.5, Plt Count 237, MPV 10.7, Immature Gran % (Auto) 0.700, Neut % (Auto) 80.7 H, Lymph % (Auto) 13.7 L, Dickens % (Auto) 4.4, Eos % (Auto) 0.3, Baso % (Auto) 0.2, Absolute Neuts (auto) 11.6 H, Absolute Lymphs (auto) 1.97, Nucleated RBC % 0, Syphilis Total Ab Non- reactive, Blood Type O POSITIVE, Antibody Screen NEGATIVE 11/03/24 05:30: WBC 14.5 H, RBC 3.88 L, Hgb 10.9 L, Hct 33.6 L, MCV 86.6, MCH 28.1, MCHC 32.4, RDW Std Deviation 42.0, RDW Coeff of Jana 13.5, Plt Count 218, MPV 10.7 ROS Constitutional Constitutional: Reports systems reviewed and no addt'l complaints, except as documented Cardiovascular Cardiovascular: Reports systems reviewed and no addt'l complaints, except as documented Respiratory/Chest Respiratory/Chest: Reports systems reviewed and no addt'l complaints, except as documented Gastrointestinal Gastrointestinal: Reports systems reviewed and no addt'l complaints, except as documented Physical Exam Const alert, oriented x3 and no apparent distress HEENT Head and Scalp: atraumatic Resp normal respiratory effort GI soft to palpation and non-tender Inspection: incision intact, healing well and drainage (none) Bimanual Exam - Vag & Uterus: uterus non-tender Uterus Palpation: uterus fundus firm (below Umbilicus) Assessment & Plan (1) delivery delivered: COMMENT: ANTONIO geronimo 38 oligo breech PLAN: Plan s/p LTCS PPD # 1 1. routine post care 2. breast feeding- support given 3. rh positive 4. rubella immune
--- NOTE | 2024-11-03 11:26 | CASEMGMT ---
Social Work Assessment Labor and Delivery Unit Patient Address:[address] [place] [address] Phone number: [phone] Date of Referral: Time of Referral:? Referred By: Date of Intervention: ?? Time of Intervention:? Reason for Referral:? History obtained from: medical records, MOB Household composition: Patient's parent/guardian status:? ? Medical History: ? Educational Status:? Financial Status: Infant Supplies: Childcare/Caregiver(s):? Transportation:?? Programs/Agencies Involved: ??? Children Services/Legal Issues:??? Behavioral Health Issues: ??Mental Health History:??? Substance Use History:?? Family History:? Drug Screens: Family/Social Stressors:? Support Systems: Depression/Shaken Baby/Safe Sleeping: ASSESSMENT:? PLAN:?? No other services requested or indicated. MOB and baby to be discharged when medically ready. Parents were provided literature regarding: signs and symptoms of baby blues and mood and anxiety disorders, Help Me Grow, shaken baby prevention, ABCs of safe sleep and a list of county resources that are available for them should any needs present themselves. Yunier Wilson, SIGNS AND DISPLAYS SALES REPRESENTATIVE, RN TESTING
--- NOTE | 2024-11-03 11:57 | CASEMGMT ---
Social Work Assessment Labor and Delivery Unit Patient Address: [address] [place] [address] Phone number: [phone] Date of Referral: 11/02/24 Time of Referral:? 1218 Referred By: Dr. Bills Date of Intervention: ?11/03/24? Time of Intervention:? 1045 Reason for Referral:? with history of ETOH abuse Sw completed chart review and acknowledges social work consult. Sw presented to bedside and introduced self to mother of baby (SOY- Stephanie) and father of baby (RONI- Thomas). Sw explained reason for sw involvement and completed psychosocial assessment. History obtained from: medical records, MOB and RONI Household composition: Currently residing in the family home is SOY, RONI, their three year old daughter, Kita and baby when ready for discharge. No concerns with housing. Patient's parent/guardian status:? SOY states that she and RONI have been for 8-9 years after meeting while both parents were residing in [place] and were introduced to each other by mutual friends. Latimer baby is second baby for both parents together. No concerns reported of domestic violence or intimate partner violence. ? Medical History: ?SOY is 34 year old female who is 2, para 1- now 2 following labor and delivery of . SOY received routine care during with [facility]. SOY presented to hospital for repeat on 11/02/24 at 38 weeks gestation for oligo and breech presentation. Baby boy, named Alvino, was born weighing 6lb 7oz with apgars of 8 and 9 at one and five minutes of life, respectfully. SOY is breast feeding and baby will be followed by Dr. German for pediatrics. Educational Status:? Both parents graduated from high school. SOY obtained her Master's degree and RONI obtained his Bachelor's degree. No issues with reading, learning or comprehension. Financial Status: Both parents are gainfully employed outside of the home. 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 Infant Supplies: All necessary baby items obtained, including: car seat, safe sleep space, clothes, diapers and wipes. Childcare/Caregiver(s):? When both parents have returned to work they have parents/ grandparents who will assist with childcare. Transportation:?? Both parents have their drivers license and reliable means of transportation, no barriers. Programs/Agencies Involved: ??Family is over income for community agencies that provide financial assistance. ? Children Services/Legal Issues:?No history of children services involvement, no issues or concerns warranting referral to be made at this time. ?? Behavioral Health Issues: ??Mental Health History:?RONI states that he has been diagnosed with ADHD, anxiety and depression. RONI is connected to a virtual counselor that he and MOB both see and a psychiatrist through [facility] ([facility]). RONI states that he is prescribed vyvanse and zoloft and it took awhile to get on the right medications, and these seem to be the combination that work the best for him. SOY denies mental health history. ?? Substance Use History:?RONI reports that he has history of abusing alcohol, and then when he stopped drinking he started abusing other drugs/ pain medications. RONI states that he went to [place] for a rehab and treatment facility almost 4 year ago and remains connected to sobriety resources and supports. MOB denies substance use history prior to and during . ? Family History:??RONI discloses that alcoholism does run on his side of the family. RONI states that he is mindful of this and hopes that he broke the cycle. ??? Drug Screens: No drug screens observed during chart review. Family/Social Stressors:? SOY reports that there are several family members who are really sick at this time, and that has been something that they have been struggling with. SOY states that she thinks she is able to separate that kind of concern opposed to issues. Support Systems: Parents report that both sets of grandparents are their biggest supports, along with a big friend group and people from faith. Depression/Shaken Baby/Safe Sleeping: Sw educated parents on signs and symptoms of baby blues and mood and anxiety disorders to be mindful of during this period. Parents state that this is something that they feel they have talked at lengthy about, together and with their counselor. MOB states that she gave their counselor a heads up that she may want to have a session with her over the next couple of weeks. Parents state that their communication with each other has significantly improved. FOB states that if MOB were to struggle with her mental health during this period he would be able to recognize that. Parents state that they both have healthy and appropriate coping skills that they utilize. Sw educated parents on shaken baby prevention and ABCs of safe sleep, parents express understanding. ASSESSMENT:? MOB and baby admitted following labor and delivery. MOB and FOB open and talkative regarding their history. FOB open to discussing his addiction in his past, the treatment he went to, the resources that he is still connected to and things that he does every day to stay sober. MOB acknowledges that she was only three months with their first baby when FOB left to go to treatment in [place], and she struggled with her mental health at that time. Both parents state that they have overcome so many hurdles together and are in a place with their marriage that they never believed they would be. Parents are connected to mental health resources and supports, have all necessary baby supplies and natural supports in place. PLAN:?? No other services requested or indicated. MOB and baby to be discharged when medically ready. Parents were provided literature regarding: signs and symptoms of baby blues and mood and anxiety disorders, Help Me Grow, shaken baby prevention, ABCs of safe sleep and a list of county resources that are available for them should any needs present themselves. Yunier Wilson, RIVER TRANSPORTATION WORKER, WELDING ENGINEER
[2024-11-04 01:44] VITALS: BP 123/74; PULSE 76; RESP 16; TEMP 36.4; O2SAT 96
[2024-11-04] MEDS: Acetaminophen 500 MG Tablet 1000 MG PO ×2 (03:14→09:28)
[2024-11-04] MEDS: Enoxaparin 40 MG/0.4 ML Syringe SC (04:59)
[2024-11-04] MEDS: Naproxen 500 MG Tablet PO (07:41)
[2024-11-04 07:48] VITALS: BP 128/79; PULSE 83; RESP 16; TEMP 36.1
--- NOTE | 2024-11-04 08:21 | PCM.PN.OB ---
Subjective Subjective Patient doing well without complaints. Tolerating PO. Ambulating and voiding without difficulty. Feeding well. Denies chest pain, shortness of breath, calf pain/swelling, fevers, chills, lightheadedness. Objective Data Objective Data Vital Signs: Vital Signs Temp Pulse Resp BP Pulse Ox O2 Del Method 97.0 F L 83 16 128/79 H 96 Room Air 11/04/24 07:48 11/04/24 07:48 11/04/24 07:48 11/04/24 07:48 11/04/24 01:44 11/04/24 01:44 Oxygen Delivery Method Room Air Weight: 191 lb 9.307 oz Body Mass Index (BMI) 33.9 Intake & Output: Intake and Output for Last 24 Hours 11/02/24 11/03/24 11/04/24 23:59 23:59 23:59 Intake Total 1244.1 / 1244.1 Output Total 900 / 900 1150 / 1150 Balance 344.1 / 344.1 -1150 / -1150 Lab / Micro Data 11/03/24 05:30 Physical Exam Const alert and oriented x3 HEENT normocephalic Eyes PERRL Neck full ROM Resp normal respiratory effort GI soft to palpation GI Narrative: FF below U. Dressing dry and intact Palpation: tender other (appropriately) Assessment & Plan (1) delivery delivered: COMMENT: ANTONIO geronimo 38 oligo breech PLAN: Plan s/p LTCS PPD # 2 1. routine post care 2. breast feeding- support given 3. rh positive 4. rubella immune 5. home today
== END 2024-11-04 10:25 | disposition home or self-care (01) | DRG 787 ==
PROVIDERS: Admitting Provider Obstetrics & Gynecology; PCP Family Medicine; Referring Provider Obstetrics & Gynecology; Visit Provider Obstetrics & Gynecology
DX: O32.1XX0 Maternal care for breech presentation, not applicable or unspecified (principal); O41.03X0 Oligohydramnios, third trimester, not applicable or unspecified; O34.211 Maternal care for low transverse scar from previous cesarean delivery; Z37.0 Single live birth; Z3A.37 37 weeks gestation of pregnancy
CPT/HCPCS: 59025; 59050; 85025; 85027; 86780; 86850; 86900; 86901; 99221; J7120; G0378; J2405